=== PATIENT | male | born 1940 | race Caucasian/White ===

== ENCOUNTER → 2021-01-01 14:59 | Outpatient (BNVA) | payer MEDICARE, OTHER, SELFPAY | PROVIDERS: PCP Internal Medicine; Visit Provider Nurse Practitioner Family | DX: M47.27 Other spondylosis with radiculopathy, lumbosacral region (principal); M96.1 Postlaminectomy syndrome, not elsewhere classified | CPT/HCPCS: 99202 ==

== ENCOUNTER 2021-01-10 12:25 | Outpatient (REF) | payer MEDICARE, OTHER, SELFPAY ==
--- NOTE | ~2021-01-10 | MR_ITS ---
EXAMINATION: MR LUMBAR SPINE WITHOUT AND WITH CONTRAST CLINICAL INFORMATION: Postlaminectomy syndrome. Self-reported low back pain with bilateral leg pain COMPARISON: None TECHNIQUE: MRI of the lumbar spine was obtained using routine sequences with and without contrast. 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 Precise determination of the number of nonrib-bearing vertebral bodies is precluded given absence of axial images extending sufficiently cranially to assess rib-bearing status of the visualized vertebral bodies. The rudimentary intervertebral disc is presumed to represent the S1-S2 level. On this basis, bilateral transpedicular screws are present at L2, L3, L4 and L5. Focal angulation of the right L5 transpedicular screw is noted (series 4 image 11) which could represent a hardware fracture along the posterior aspect of the transpedicular screw. There are graft L2, L3, L4 and L5 laminectomies are noted. Artifact likely representing interbody device is noted at L2-L3, L3-L4, L4-L5. The conus medullaris terminates at the level of L1-L2. No vertebral body compression deformities are noted. Edematous marrow signal changes are present in the L5 and S1 vertebral bodies. No paraspinous soft tissue inflammatory changes are noted in association with these findings making allowances for inhomogeneous fat saturation on sagittal T1 postcontrast enhanced images. Fluid signal intensity is present in the L5-S1 intervertebral disc space. SPINAL LEVELS: T12-L1: No central foraminal stenoses. Normal intervertebral discs. L1-L2: Moderate posterior broad-based disc bulge with right parasagittal eccentricity partially effacing the right subarticular recess with probable right L2 traversing nerve root impingement. Additionally, mild right foraminal stenosis is noted. L2-L3: Making allowances for artifacts, no significant central or foraminal stenoses are noted. Minimal narrowing of the right neural foramen secondary to endplate osteophytosis is partially visualized. L3-L4: Making allowances for artifacts, no central or foraminal stenoses are identified. The neural foramina are suboptimally visualized secondary to artifact. L4-L5: Making allowances for artifact related to adjacent metallic hardware, no central or foraminal stenoses are identified. L5-S1: The neural foramina are suboptimally visualized secondary to artifact emanating from adjacent transpedicular screws. However, partial visualization is made of a moderate posterior broad-based disc bulge with apparent bilateral intraforaminal extension which appears results in marked bilateral foraminal stenoses though the neural foramina are suboptimally visualized. S1-S2: Rudimentary intervertebral disc. No central or foraminal stenoses noted. MR/MR lumbar spine wo/w con IMPRESSION: 1. 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 For the purposes of this report, a rudimentary intervertebral disc is presumed to exist at the S1-S2 level, and on this basis, bilateral transpedicular screws are present at L2, L3, L4 and L5 and interbody devices are present at L2-L3, L3-L4 and L4-L5. Grade 1 anterolisthesis is noted at L5-S1 and partial visualization is made of laminectomies at L2-L5. 2. Focal angulation of the course of the posterior aspect of the right L5 transpedicular screw. This finding could represent a fracture of the transpedicular screw or focal angulation without fracture. As clinically indicated, this finding may be assessed with radiographs of the lumbar spine. 3. L1-L2 right parasagittal and intraforaminal disc protrusion resulting in right subarticular recess narrowing and probable right L2 traversing nerve root impingement. 4. Inflammatory changes within the L5 and S1 vertebral bodies associated with a small quantity of fluid within the L5-S1 intervertebral disc space. These findings could represent aseptic, reactive marrow changes. In the correct clinical setting, discitis-osteomyelitis could have a similar appearance. Of note, no jaylon endplate erosions, or paraspinous inflammatory changes or fluid collections are identified to specifically suggest infection. 5. L5-S1 marked bilateral foraminal stenoses and probable bilateral L5 nerve root impingement secondary to intraforaminal disc-osteophyte complexes.
[2021-01-10 13:08] LABS: Blood Urea Nitrogen 24 mg/dL (9-16); Estimated Glomerular Filt Rate 55
== END 2021-01-10 12:26 | disposition home or self-care (01) ==
LOC: HO.MRI 12:25
PROVIDERS: Nurse Practitioner Family; PCP Internal Medicine; Visit Provider Anesthesiology
DX: Z01.818 Encounter for other preprocedural examination (principal); M96.1 Postlaminectomy syndrome, not elsewhere classified
CPT/HCPCS: 36415; 72158; 82565; 84520; A9585

== ENCOUNTER 2021-01-13 11:19 | Outpatient (REF) | payer MEDICARE, OTHER, SELFPAY ==
--- NOTE | ~2021-01-13 | XR_ITS ---
EXAMINATION: XR LUMBOSACRAL SPINE WITH OBLIQUES CLINICAL INFORMATION: Post laminectomy syndrome. COMPARISON: None TECHNIQUE: AP, both oblique, and lateral views of the lumbar spine. Lateral view of the lumbosacral junction. FINDINGS: There is maintained lumbar lordosis. There are disc prostheses at the L2-L3, L3-L4 and L4-L5 disc levels with pedicular screws at the L2 through L5 vertebrae with interconnecting rods for posterior stabilization. The rest the disc levels are normal. No acute fracture or lytic process is seen. There is a left common iliac stent in place. No gross bony abnormality is seen. XR/XR lumbar spine 4V min IMPRESSION: Fusion of the L2-L3, L3-L4 and L4-L5 disc levels with disc prostheses and posterior hardware. The hardware is intact. No visible fracture or dislocation is seen.
== END 2021-01-13 11:20 | disposition home or self-care (01) ==
LOC: HO.XRAY 11:19
PROVIDERS: PCP Internal Medicine; Visit Provider Anesthesiology
DX: M96.1 Postlaminectomy syndrome, not elsewhere classified (principal); M46.47 Discitis, unspecified, lumbosacral region; T84.296A Other mechanical complication of internal fixation device of vertebrae, initial encounter
CPT/HCPCS: 72110

== ENCOUNTER → 2021-01-15 15:31 | Outpatient (BNVA) | payer MEDICARE, OTHER, SELFPAY | PROVIDERS: PCP Internal Medicine; Visit Provider Nurse Practitioner Family | DX: M47.27 Other spondylosis with radiculopathy, lumbosacral region (principal); M96.1 Postlaminectomy syndrome, not elsewhere classified | CPT/HCPCS: 99212 ==

== ENCOUNTER 2024-10-17 09:10 | Outpatient (AMB) | payer MEDICARE, OTHER, SELFPAY ==
[2024-10-17 09:19] VITALS: BP 102/60; BMI 24.9
--- NOTE | 2024-10-17 09:19 | A.OFFVIS_ITS ---
Vital Signs 10/17/24 09:19 Height 5 ft 6 in Weight 154 lb BMI 24.9 BP 102/60 Blood Pressure Location Rt brachial Position Sitting Intake Visit Reasons: chronic cough Personalized Living Manager Required: No Information Technology Officer: Information Technology Officer offered & declined Accompanied by: Family/Other Allergies oxycodone Adverse Reaction (Verified 10/17/24 09:26) Hallucinations latex Allergy (Uncoded 10/17/24 09:26) rash Medication List - Last Reconciled 10/17/24 by Yadira Minor LPN acetaminophen (Tylenol) 650 mg PO Q6H PRN aspirin (Adult Aspirin Regimen) 81 mg PO DAILY carvedilol 3.125 mg PO BID cetirizine 10 mg PO DAILY clopidogrel 75 mg PO DAILY cyanocobalamin (vitamin B-12) 1,000 mcg PO DAILY ezetimibe 10 mg PO Q OTHER DAY ferrous sulfate 325 mg PO DAILY gabapentin 300 mg PO TID hydromorphone 4 mg PO Q6H PRN hydroxyzine HCl 10 mg PO BID midodrine 10 mg PO TID multivitamin 1 tab PO DAILY pantoprazole 20 mg PO DAILY rosuvastatin 40 mg PO DAILY sacubitril-valsartan 24-26 mg (Entresto) 1 tab PO BID torsemide 3 mg PO Q OTHER DAY PRN torsemide 20 mg PO DAILY HPI HPI chronic cough: Details: Arnel is a pleasant 83-year-old male, former smoker, quit 1979 with 15 parking history, with underlying HFrEF s/p ICD 2020, CKDIII, anemia, hyperlipidemia, hypertension, glaucoma, history of [place] CABG x4 in 2018, 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 He is accompanied by daughter and , ambulating in wheelchair due to weakness. He was referred by PCP for pulmonary evaluation for chronic cough. He noted cough started the beginning of July was treated with a Z-Ashu and Medrol Dosepak with minimal improvement. Chest x-ray negative. He continues to report fatigue, weakness, wheezing and productive cough with dark yellow tenacious sputum. He denies fevers or chills. At the start of symptoms also noted multiple family members with similar symptoms, however his have persisted. He was then sent for chest CT which revealed tree in bud nodularities with a 1cm ggo of RUL. He denies any history of asthma/COPD. He reports possible seasonal allergies, no recent allergy testing. 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 He denies any pertinent family history. He has a h/o of PAM however could not tolerate CPAP therapy in the past. He is under the care of cardiology at [facility], no reports available. [facility] Medical History (Updated 10/17/24 @ 10:09 by Georgie Markham NP) Other mechanical complication of internal fixation device of vertebrae, initial encounter Discitis of lumbosacral region Osteomyelitis Social History (Updated 10/17/24 @ 09:27 by Yadira Minor LPN) Patient Tobacco Use Status: Former Tobacco user Tobacco use type: Cigarette Cigarette Packs Per Day: 1 Years Smoked: 20 years/ Quit in 1977 Review of Systems Const Denies chills, Denies excessive sweating, Denies fever(s), Denies headache(s) and Denies night sweats Eyes Denies dry eyes, Denies irritation and Denies itchy eyes ENT Reports Normal hearing present, Denies headache(s), Denies nasal congestion, Denies nasal discharge, Denies post nasal drip and Denies sore throat Card Denies chest pain, Denies chest pain at rest, Denies chest pain with activity, Denies claudication, Denies dyspnea, Denies dyspnea on exertion, Denies orthopnea and Denies paroxysmal nocturnal dyspnea Resp Denies pain on inspiration, Denies pain with cough, Denies dyspnea, Denies dyspnea on exertion and Denies stridor Musc Denies myalgias Neuro Reports Normal hearing present and Denies headache(s) Endo Denies excessive sweating Kris/Lymph Denies lymphadenopathy Aller/Immun Denies itchy eyes and Denies seasonal rhinorrhea Physical Exam Vital Signs: Last Vital Signs BP 102/60 10/17/24 09:19 BMI result Body Mass Index 24.9 Const General: cooperative, comfortable, no acute distress, well developed and alert Orientation/consciousness: patient oriented x3 HEENT Head: Yes normal to inspection, Yes normocephalic and Yes atraumatic Ears: hearing grossly normal bilaterally and external ears normal Eyes General: appearance normal, both eyes and all related structures Eyelids: Yes eyelids normal Sclerae: sclerae normal EOM: EOMs intact bilaterally Neck Neck: Yes normal visual inspection and Yes no lymphadenopathy Lymphatic: no lymphadenopathy noted Chest Chest palpation & inspection: normal inspection of the chest Resp Effort & Inspection: normal respiratory effort, able to speak in complete sentences, no audible wheezes, Actively coughing Quality: productive, no stridor, not tachypneic, no tripod positioning and no use of accessory muscles Auscultation: rhonchi and wheezes Cardio Jugular venous distension: no JVD Rate: regular rate Rhythm: regular rhythm Skin Other: warm, dry General skin exam: no rashes or lesions noted Neuro General: patient oriented x3 Cranial nerves: Yes Normal hearing present Cognition (Neuro): normal cognition Extrem Other: 2+ pitting edema BLE Psych Appearance: grossly normal and well kempt Speech and movement: Normal speech and movement present and Clear speech present Affect: normal affect Attitude: cooperative Thought process: Normal thought process present Thought content: Normal thought content present Insight: Good insight present (Psych) Judgement: Good judgement present (Psych) Results Reviewed Results Reviewed: RESULT: CT Chest W/O Contrast CT Chest W/O Contrast INDICATION: Persistent cough TECHNIQUE: Helical CT scan of the chest without IV contrast, formatted in 3 planes. Weight-based protocol was performed using automatic exposure control. CTDIvol Body: 13.39 mGy, DLP Body: 513 mGy*cm. COMPARISON: CT angiogram chest 05/18/2023, CT chest 04/10/2023 FINDINGS: Substation Operator Helper view findings, lines and tubes: Triple lead pacemaker/AICD in place. Status post posterior fixation of the lumbar spine with intervertebral spacers. Status post median sternotomy. Trachea and airways: Patent without evidence of tracheal or endobronchial lesion. Lungs and pleura: Scattered tree-in-bud nodularity and multiple additional micronodules with a centrilobular distribution and a basilar predominance, worse on the left. 1 cm groundglass opacity in medial right upper lobe. Atelectasis versus scarring at the right and left lung bases. No effusion or pneumothorax. Mediastinum and ernesto: No mass or hematoma. Prominent but not enlarged mediastinal lymph nodes. No esophageal abnormality. Normal thyroid. Heart: Heart is normal in size. No pericardial effusion. Severe coronary artery calcification. Aorta: Severe atherosclerotic vascular calcification but no aneurysm. Pulmonary arteries: Normal caliber. Chest wall soft tissues: No acute abnormality. Diaphragm: Intact. Upper abdomen: No significant abnormality. Bones: Severe degenerative changes of the spine. Status post median sternotomy. IMPRESSION: Scattered tree-in-bud nodularities and micronodules with a centrilobular distribution and basilar prominence, which may represent bronchiolitis secondary to infectious versus inflammatory etiologies. 1 cm groundglass opacity medial right upper lobe. Degenerative and postoperative changes. I have personally reviewed the images and I agree with this report. WSN: [id number] Ordering Physician: Hemal Ball Assessment & Plan Assessment & Plan (1) Cough: Code(s): R05.9 - Cough, unspecified Category: Medical (2) Personal history of tobacco use: Code(s): Z87.891 - Personal history of nicotine dependence Category: Social Hx Plan Arnel presents for pulmonary evaluation for persistent harsh productive cough with suboptimal response to azithromycin and medrol dose pack. Will send Augmentin and prednisone, as well as encouraged use of albuterol to better expectorate. Reviewed side effects of both medications, aware to discontinue and call office if significant GI symptoms develop. If patient with minimal response will send for sputum. If patient reports improvements, will repeat chest CT to assess for resolution of inflammatory changes on chest CT. All questions were answered and patient is in agreement of plan. Will follow up in 4 weeks or sooner if needed. Medications: New amoxicillin-pot clavulanate 875-125 mg 1 tab PO Q12H 20 tabs 0RF prednisone see taper instructions 20 mg x 5 days, 10 mg x 5 days, 5 mg x 5 days 10 mg PO DIRECTED 18 tabs 0RF Coding Level of Care Code New Pt Level 4 (95223) Diagnoses Cough R05.9 Personal history of tobacco use Z87.896
== END 2024-10-17 10:11 | disposition home or self-care (01) ==
PROVIDERS: PCP Internal Medicine; Referring Provider Physician Assistant Medical; Visit Provider Nurse Practitioner Family
DX: R05.9 Cough, unspecified (principal); Z87.891 Personal history of nicotine dependence
CPT/HCPCS: 99204

== ENCOUNTER → 2024-10-17 09:10 | Outpatient (BNVA) | payer MEDICARE, OTHER, SELFPAY | PROVIDERS: PCP Internal Medicine; Referring Provider Physician Assistant Medical; Visit Provider Nurse Practitioner Family | DX: R05.9 Cough, unspecified (principal); Z87.891 Personal history of nicotine dependence | CPT/HCPCS: 99202 ==

== ENCOUNTER 2024-11-14 13:54 | Outpatient (AMB) | payer MEDICARE, OTHER, SELFPAY ==
[2024-11-14 14:00] VITALS: BP 114/68; BMI 24.5
--- NOTE | 2024-11-14 14:00 | A.OFFVIS_ITS ---
Vital Signs 11/14/24 14:00 Height 5 ft 6 in Weight 152 lb BMI 24.5 BP 114/68 Blood Pressure Location Rt brachial Position Sitting Intake Visit Reasons: Chronic Cough Bleach Liquor Maker Required: No Artificial Breeding Ranch Supervisor: Artificial Breeding Ranch Supervisor offered & declined Accompanied by: Family/Other Allergies oxycodone Adverse Reaction (Verified 11/14/24 14:05) Hallucinations latex Allergy (Uncoded 11/14/24 14:05) rash Medication List - Last Reconciled 11/14/24 by Yadira Minor LPN acetaminophen (Tylenol) 650 mg PO Q6H PRN aspirin (Adult Aspirin Regimen) 81 mg PO DAILY carvedilol 3.125 mg PO BID cetirizine 10 mg PO DAILY clopidogrel 75 mg PO DAILY cyanocobalamin (vitamin B-12) 1,000 mcg PO DAILY ezetimibe 10 mg PO Q OTHER DAY ferrous sulfate 325 mg PO DAILY gabapentin 300 mg PO TID hydromorphone 4 mg PO Q6H PRN hydroxyzine HCl 10 mg PO BID midodrine 10 mg PO TID multivitamin 1 tab PO DAILY pantoprazole 20 mg PO DAILY prednisone 10 mg PO DIRECTED rosuvastatin 40 mg PO DAILY sacubitril-valsartan 24-26 mg (Entresto) 1 tab PO BID torsemide 3 mg PO Q OTHER DAY PRN torsemide 20 mg PO DAILY HPI HPI Chronic Cough: Details: Arnel is a pleasant 83-year-old male, former smoker, quit 1979 with 15 parking history, with underlying HFrEF s/p ICD 2020, CKDIII, anemia, hyperlipidemia, hypertension, glaucoma, history of [place] CABG x4 in 2018, 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 He is accompanied by daughter and , ambulating without assistance. He was initially referred by PCP for pulmonary evaluation for chronic cough. He noted cough started the beginning of July was treated with a Z-Ashu and Medrol Dosepak with minimal improvement. Chest x-ray negative. He continued to report fatigue, weakness, wheezing and productive cough with dark yellow tenacious sputum. He denies fevers or chills. He was then sent for chest CT which revealed tree in bud nodularities with a 1cm ggo of RUL. At the last visit he was prescribed Augmentin and presents today for a close follow up. He reports about 50% improvement in symptoms since abx however continues with harsh cough, chest congestion, difficulty expectorating and intermittent wheezing. Of note, patient with BLE edema, significant cardiac component and has been adjusting diuretic this week with cardiology. [facility] Medical History (Updated 11/15/24 @ 11:26 by Georgie Markham NP) Other mechanical complication of internal fixation device of vertebrae, initial encounter Discitis of lumbosacral region Osteomyelitis Social History Patient Tobacco Use Status: Former Tobacco user Tobacco use type: Cigarette Cigarette Packs Per Day: 1 Years Smoked: 20 years/ Quit in 1977 Review of Systems Const Denies chills, Denies excessive sweating, Denies fever(s), Denies headache(s) and Denies night sweats Eyes Denies dry eyes, Denies irritation and Denies itchy eyes ENT Reports Normal hearing present, Denies headache(s), Denies nasal congestion, Denies nasal discharge, Denies post nasal drip and Denies sore throat Card Denies chest pain, Denies chest pain at rest, Denies chest pain with activity, Denies claudication, Reports leg edema, Denies dyspnea, Denies dyspnea on exertion, Denies orthopnea and Denies paroxysmal nocturnal dyspnea Resp Reports chest congestion, Reports cough, Denies hemoptysis, Denies pain on inspiration, Denies pain with cough, Denies dyspnea, Denies dyspnea on exertion, Denies stridor and Reports wheezing Musc Denies myalgias Neuro Reports Normal hearing present and Denies headache(s) Endo Denies excessive sweating Kris/Lymph Denies lymphadenopathy Aller/Immun Denies itchy eyes, Denies seasonal rhinorrhea and Reports wheezing Physical Exam Vital Signs: Last Vital Signs BP 114/68 11/14/24 14:00 BMI result Body Mass Index 24.5 Const General: cooperative, comfortable, no acute distress, well developed and alert Orientation/consciousness: patient oriented x3 HEENT Head: Yes normal to inspection, Yes normocephalic and Yes atraumatic Ears: hearing grossly normal bilaterally and external ears normal Eyes General: appearance normal, both eyes and all related structures Eyelids: Yes eyelids normal Sclerae: sclerae normal EOM: EOMs intact bilaterally Neck Neck: Yes normal visual inspection and Yes no lymphadenopathy Lymphatic: no lymphadenopathy noted Chest Chest palpation & inspection: normal inspection of the chest Resp Effort & Inspection: normal respiratory effort, able to speak in complete sentences, no audible wheezes, Actively coughing Quality: productive, no stridor, not tachypneic, no tripod positioning and no use of accessory muscles Auscultation: rhonchi and wheezes Cardio Jugular venous distension: no JVD Rate: regular rate Rhythm: regular rhythm Skin Other: warm, dry General skin exam: no rashes or lesions noted Neuro General: patient oriented x3 Cranial nerves: Yes Normal hearing present Cognition (Neuro): normal cognition Extrem Other: 2+ pitting edema BLE Psych Appearance: grossly normal and well kempt Speech and movement: Normal speech and movement present and Clear speech present Affect: normal affect Attitude: cooperative Thought process: Normal thought process present Thought content: Normal thought content present Insight: Good insight present (Psych) Judgement: Good judgement present (Psych) Assessment & Plan Assessment & Plan (1) Cough: Code(s): R05.9 - Cough, unspecified Category: Medical (2) Personal history of tobacco use: Code(s): Z87.891 - Personal history of nicotine dependence Category: Social Hx Plan Arnel reports moderate improvement in symptoms however continues with harsh productive cough, with rhonchi throughout. Will send for CXR today with possibility of chest CT depending on results. Plan to repeat chest CT in 3 months if improving to assess RUL 1 cm ggo. Will send Bactrim and prednisone, patient with QTc 482, avoiding levaquin. He was given sputum cup in office however difficulty expectorating so unlikely he will be able to produce sample. He did note improvement with nebulized albuterol from prior provider, will send in levalbuterol due to significant cardiac history. There may also be a cardiac component contributing to symptoms, patient with BLE edema and currently adjusting torsemide with cardiology. He is aware if symptoms do not improve to call office or seek emergent care if worsens. Also recommend taking a probiotic. All questions were answered and patient is in agreement of plan. Will follow up in 2-4 weeks or sooner if needed. Orders: Orders Sputum Cult + Gram stain 11/14/24 J40 - Bronchitis, not specified as acute or chronic XR chest 2V Today R05.9 - Cough, unspecified Medications: New sulfamethoxazole-trimethoprim 800-160 mg (Bactrim DS) 1 tab PO BID 20 tabs 0RF prednisone see taper instructions; 40 mg Daily x3 days, 30 mg daily x3 days, 20 mg daily x3 days, 10 mg daily x3 days 10 mg PO DIRECTED 30 tabs 0RF levalbuterol HCl 1.25 mg (3 mL) inhalation Q4-6H PRN 90 mL 3RF shortness of breath or wheezing J40 - Bronchitis, not specified as acute or chronic Coding Level of Care Code Est Pt Level 4 (67957) Complex EM visit Add On G2211 Diagnoses Cough R05.9 Personal history of tobacco use Z87.898
--- OUTSIDE RECORDS SUMMARY | 2024-11-14 14:55 | XMS_ITS | Patient Health Record ---
Author Organization [facility] Address [address] [place] [address] Care Team Providers Care Manager Cleaning Name Role Phone ALYSIA FELTON Primary Care Provider [phone] ALYSIA FELTON Unavailable [phone] Allergies Allergen (clinical drug ingredient) Drug/Non Drug Allergy documented on EMR Reaction Allergy Type Onset Date Status Latex Latex Unknown Allergy Active Reason For Referral No Information Medications Medication SIG (Take, Route, Frequency, Duration) Notes Start Date End Date Status Midodrine HCl 5 MG 2 tabs Orally 3x a day for 90 days Active Torsemide 10 MG TAKE 1 AND 1/2 TABLETS ONCEDAILY for 90 Active Pantoprazole Sodium 40 MG 1 tablet Orally Once a day for 90 days Active Rosuvastatin Calcium 40 MG TAKE 1 TABLET ONCE DAILY for 90 Active Cetirizine HCl 10 MG 1 tablet Orally Once a day Active Ezetimibe 10 MG 1 tablet Orally Once a day for 30 day(s) Active Hydrocortisone (Perianal) 2.5 % APPLY EXTERNALLY 2-4 TIME DAILY NEEDED 30 DAYS for 30 Active Clopidogrel Bisulfate 75 MG 1 tablet Orally Once a day for 90 days Active Entresto 49-51 MG 1 tablet Orally Twice a day for 30 day(s) Active Calcium Carb-Cholecalciferol 600-200 MG-UNIT 1 tablet with a meal Orally Once a day for 30 day(s) Active Nitroglycerin 0.4 MG as directed Sublingual 1-2 q 4 hourly PRN Active Latanoprost 0.005 % 1 drop into affected eye in the evening Ophthalmic Once a day Active hydrOXYzine HCl 10 MG as directed Orally BID Not-Taking Tacrolimus 0.1 % 1 application Externally Once a day Active HYDROmorphone HCl 2 MG 1 tablet as neede d Orally every 6 hrs takes prn for back pain- rare use Not-Taking Aspirin 81 MG 1 tablet Orally Once a day for 90 Active Multi Vitamin - 1 tablet Orally every other day for 30 days Active Menthol-Zinc Oxide 0.44-20.6 % as directed Externally Not-Taking Tylenol Extra Strength 500 MG 1 tablet as needed Orally every 6 hrs Active Carvedilol 3.125 MG TAKE 1 TABLET BY MOUTH TWICE A DAY WITH FOOD for 90 Not-Taking Gabapentin 300 MG TAKE 1 CAPSULE TWICE DAILY for 90 Active Triamcinolone Acet-Dimethicone Active Diclofenac Sodium 3 % apply 2 inches of gel Externally Twice a day for 30 day(s) Not-Taking CeraVe Daily Moisturizing - as directed Externally Active Protonix 40 MG 1 tablet Orally Once a day for 30 day(s) 04/19/2023 Not-Taking Cholestyramine 4 GM/DOSE 1 scoop Orally Once a day for 30 days Active Calcium & Magnesium Carbonates 975-232 MG one tablet twice a day Orally bid for 90 days Active Alendronate Sodium 70 MG TAKE 1 TABLET WEEKLY 30 MINUTES BEFORE THE FIRST FOOD, BEVERAGE OR MEDICINE OF THE DAY WITH PLAIN WATER for 84 Active Immunizations Vaccine Route Administration Date Status Comme nts Pneumococcal polysaccharide PPV23 Unknown 07/15/2006 Ad ministered Pneumococcal conjugate PCV 13 Unknown 04/10/2015 Admini stered DT Vaccine <7, IM Unknown 07/11/2018 Administered Social History Tobacco Use: Social History Observation Description Date Details (start date - stop date) Former Smoker NA - NA Tobacco Use/Smoking Question Answer Notes Are you a former smoker How long has it been since you last smoked? > 10 years Additional Findings: Tobacco Non-User Current no n-smoker Alcohol Screen (Audit-C) Question Answer Notes Did you have a drink contain ing alcohol in the past year? Yes How often did you have a dri nk containing alcohol in the past year? 4 or more times a week (4 points) How many drinks did you have on a typical day when you were drinking in the past year? 1 or 2 drinks (0 point) How often did you have 6 or more drinks on one occasion in the past year? Never (0 point) Points 4 Interpretation Positive Tobacco use other than smoking: Question Answer Notes Are you an other tobacco user? No Section Notes: Karen is his . 5 8 years in 2020 Karina is his daughter. Has daughter Nicol and Roberto and son Hilario. Karen is his . 5 8 years in 2020 Karina is his daughter. Has daughter Nicol and Roberto and son Hilario. Karen is his . 5 8 years in 2020 Karina is his daughter. Has daughter Nicol and Roberto and son Hilario. Karen is his . 5 8 years in 2020 Karina is his daughter. Has daughter Nicol and Roberto and son Hilario. Karen is his . 5 8 years in 2020 Karina is his daughter. Has daughter Nicol and Roberto and son Hilario. Lives in [place] since 1965 . Karina moved 03/26/2021 to help them and bought the house. Her Kalpana gan and her 2 sons Sukhdev 24(teacher) and Antoine 23 ([employer]) to [facility] [employer] for 60 yrs. 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 Has 4 childre #Karina 56 has 2 sons # Nicol 54yrLudlow has 2 sons Jimmie 29 and Madhu 18 yr #Gogo [address] usher in Has a son Moncho Alvarez 19yr and dtr Madluizaly Amanda 16 #Hilario 49 yrRetired from [employer] in Retired 2 yrs and moved to [place] Has and 2 dtrs Eliot 22 and Carlotta 21 yr Lives in [place] since 1965 . Karina moved 03/26/2021 to help them and bought the house. Her Kalpana gan and her 2 sons Sukhdev 24(teacher) and Antoine 23 ([facility] [employer] [employer]) to [employer] for 60 yrs. 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 Has 4 childre #Karina 56 has 2 sons # Nicol 54yrLudlow has 2 sons Jimmie 29 and Madhu 18 yr #[employer] [address] usher in Has a son Moncho Alvarez 19yr and dtr Maddingly Amanda 16 #Hilario 49 yrRetired from [employer] in [employer] Retired 2 yrs and moved to [place] Has and 2 dtrs Eliot 22 and Carlotta 21 yr Lives in [place] since 1964 . Karina moved 03/26/2021 to help them and bought the house. Her Kalpana gan and her 2 sons Sukhdev 24(teacher) and Antoine 23 ([employer]) to [employer] for 60 yrs. 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 Has 4 childre #Karina 56 has 2 sons # Nicol 54yrLudlow has 2 sons Jimmie 29 and Madhu 18 yr #[employer]ogo [address] usher in Has a son Moncho Alvarez 19yr and dtr Maddingly Amanda 16 #Hilario 49 yrRetired from [employer] in [employer] Retired 2 yrs and moved to [place] Has and 2 dtrs Eliot 22 and Carlotta 21 yr Lives in [place] since 1964 . Karina moved 03/26/2021 to help them and bought the house. Her Kalpana gan and her 2 sons Sukhdev 24(teacher) and Antoine 23 ([employer] [employer]) to [employer] for 60 yrs. 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 Has 4 childre #Karina 56 has 2 sons # Nicol 54yrLudlow has 2 sons Jimmie 29 and Madhu 18 yr #Gogo [address] usher in Has a son Moncho Alvarez 19yr and dtr Maddingly Amanda 16 #Hilario 49 yrRetired from [employer] in Retired 2 yrs and moved to [place] Has and 2 dtrs Eliot 22 and Carlotta 21 yr Lives in [place] since 1964 . Karina moved 03/26/2021 to help them and bought the house. Her Kalpana gan and her 2 sons Sukhdev 24(teacher) and Antoine 23 ([employer] [employer]) to [employer] for 60 yrs. 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 Has 4 childre #Karina 56 has 2 sons # Nicol 54yrLudlow has 2 sons Jimmie 29 and Madhu 18 yr #Gogo [address] usher in Has a son Moncho Alvarez 19yr and dtr Eric Patel 16 #Hilario 49 yrRetired from [employer] in [place] Retired 2 yrs and moved to [place] Has and 2 dtrs Eliot 22 and Carlotta 21 yr Lives in [place] since 1964 . Karina moved 03/26/2021 to help them and bought the house. Her Kalpana Escobar JASIEL elvia and her 2 sons Sukhdev 24(teacher) and Antoine 23 ([employer] [employer] [employer]) to [place] for 60 yrs. 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 Has 4 childre #Karina 56 has 2 sons # Nicol 54yrLudlow has 2 sons Jimmie 29 and Madhu 18 yr #Gogo [address] usher in Has a son Moncho Alvarez 19yr and dtr Eric Patel 16 #Hilario 49 yrRetired from [employer] in Retired 2 yrs and moved to [place] Has and 2 dtrs Eliot 22 and Carlotta 21 yr Karen is his . 5 8 years in 2020 Karina is his daughter. Has daughter Nicol and Roberto and son Hilario. Karen is his . 5 8 years in 2020 Karina is his daughter. Has daughter Nicol and Roberto and son Hilario. Karen is his . 5 8 years in 2020 Karina is his daughter. Has daughter Nicol and Roberto and son Hilario. Karen is his . 5 8 years in 2020 Karina is his daughter. Has daughter Nicol and Roberto and son Hilario. Karen is his . 5 8 years in 2020 Karina is his daughter. Has daughter Nicol and Roberto and son Hilario. Karen is his . 5 8 years in 2020 Karina is his daughter. Has daughter Nicol and Roberto and son Hilario. Lives in [place] since 1965 . Karina moved 03/26/2021 to help them and bought the house. Her Kalpana gan and her 2 sons Sukhdev 24(teacher) and Antoine 23 ([employer] [employer]) to [place] for 60 yrs. 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 Has 4 childre #Karina 56 has 2 sons # Nicol 54yrLudlow has 2 sons Jimmie 29 and Madhu 18 yr #Gogo [address] usher in Has a son Moncho Alvarez 19yr and dtr Eric Patel 16 #Hilario 49 yrRetired from [employer] in Retired 2 yrs and moved to [place] Has and 2 dtrs [place] 22 and Carlotta 21 yr Problems Problem Type SNOMED Code ICD Code Onset Dates Problem Status W/U Status Risk Notes Problem 05736048 Hypokalemia (E87.6) Active confirmed 09/06/23 Potassium 2.9 Taking potassium powsder every othe Told to take it daily and check after 7 days Problem Hypertensive heart AND chronic kidney disease with congestive heart failure (65281738067282) Hypertensive heart and chronic kidney disease with heart failure and stage 1 through stage 4 chronic kidney disease, or unspecified chronic kidney disease (I13.0) Active confirmed Problem Chronic systolic heart failure (390685394) Chronic systolic (congestive) heart failure (I50.22) Active confirmed Problem 41365433 Intestinal malabsorption, unspecified (K90.9) Active confirmed Problem Septic shock (31834665) Severe sepsis with septic shock (R65.21) Active confirmed 05/31/23 [place] [address] full of fluids Discharged with 20 lbs in fluid weight gain Lost 7 lbs in 3 days Problem Osteoporosis (81858588) Osteoporosis (M81.0) Active confirmed femoral neck -2.June Problem 081160756 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 Anemic but stool heme negative. Discussed food triggers. OMeprazole 40mg bid past GI note received and reviewed Problem 932911070 Primary osteoarthritis of both knees (M17.0) Active confirmed hx of TKR bilaterally Uses walker or cane. use acetaminophen and diclofenac gel. Problem 13894915 Eczema, unspecified type (L30.9) Active confirmed has been eval b y derm at [facility] but practice closed Given name and number for [facility] and told to call 01/05/22 the first day the practice opens. take zyrtec and prn hydrolozine. uses hydrocort 2.5% cream until derm reevals Problem 144530384 Coronary artery disease involving [place] coronary artery of [place] heart without angina pectoris (I25.10) Active confirmed Dr Saleem. Has had CABG with multivessel revascularizatio n. Aug 2020 EF 30-35%. Has ICD> reports no cardiac sx, reports compliance with meds. cardiology notes requested. no med changes today. Problem 436470554 Hx of myocardial infarction (I25.2) Active confirmed followed by [facility]. Problem 940307965 PVD (peripheral vascular disease) (I73.9) Active confirmed hx of cellulitis in RLE 2017 and ulcer on right second toe 2019 Has been followed by vascular. Hx of stent in left common ileac artery 12/2017. imaging 11/26/20 by [facility] right common femoral art, right proximal SFA and left proximal common ileac artery all 50-90% occlusion. left common ileac < 50% left popliteal 50-90% occlusion left common femoral 20-50% Angiogram 01/2021 Cont high dose statins, lower fat diet. activity not limited by claudication Problem 08526070 PAM (obstructive sleep apnea) (G47.33) Active confirmed has avoided sleep study but now scheduled through the cardiology office. discussed lack of O2 to brain as well as connection of Afib and PAM> He plans to keep eval scheduled for Jun. Problem 419703529 Fatty liver (K76.0) Active confirmed will recheck labs Problem 083823443 Hospital discharge follow-up (Z09) Active confirmed 04/29/23 Reviewed records Meds reviewed Only omeprazole changed to Pantaprozole Doing well I told him I cannot give medical clearance for his surgery and will refr him to Dr Saleem tenzin 05/31/23 Readmitted to [facility] for emergent open cholecystectomy as had septic shock Problem 368620532 Memory deficit (R41.3) Active confirmed Problem 12770083 Iron deficiency anemia, unspecified iron deficiency anemia type (D50.9) Active confirmed denies fatigue, easy bruising, blood in stool will check labs Problem 28790096 Stenosis of carotid artery, unspecified laterality (I65.29) Active confirmed 2017 right 50% and left 50-79% Hx of right carotid endarterectomy by Dr Altamirano 2011 Problem Solitary pulmonary nodule (311730930) Lung nodule, solitary (R91.1) Active confirmed Problem 24885165 Spinal stenosis, lumbar region with neurogenic claudication (M48.062) Active confirmed surgery x2 , last summer 2020. Problem 640396968 Chronic systolic heart failure (I50.22) Active confirmed Has not had SOB or ORTIZ, edema or decrease in energy. cont meds. [facility] cardiovascual Last echo dated 08.15.21 EF 30-35% LBBB, mild enlargement right ventricle. no evidence pulmonary hypertension. Problem History of excision of intestinal structure (805190942) S/P cholecystectomy (Z90.49) Active confirmed 05/18/23 Dr Starr lee at [facility] Problem 764574587 Longstanding persistent atrial fibrillation (I48.11) Active confirmed began after CABGx4 in 2018 On clopidogril Has ICD. no episodes racing or irreg heart rate. cardiology notes requested Problem 74498132 Hypercholesterem ia (E78.00) Active confirmed on crestor and zetia. Was on Repatha in past but developed back pain so med d/c. 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 followed by vascular surgery Problem 663577225 Cholecystostomy care (Z43.4) Active confirmed Plan Of Treatment Pending Test Test Name Order Date Urinalysis, Complete 08/25/2023 Lipid Panel 08/25/2023 Lipid Panel 06/22/2023 Chem-Comprehensive 08/25/2023 Chem-Comprehensive 06/22/2023 BASIC METABOLIC PANEL (BMP) 07/17/2022 B-TYPE NATRIURETIC PEPTIDE (BNP) 023 Future Test Test Name Order Date CBC 11/24/2022 COMPREHENSIVE METABOLIC PANEL 11/24/2022 LIPID PROFILE 11/24/2022 CBC 06/21/2023 BASIC METABOLIC PANEL (BMP) 06/28/2023 Insurance Providers Payer Name Payer Address Payer Phone Subscriber Number Group Number Insured Name Patient Relationship to Insured Coverage Start Date Coverage End Date Medicare of [place] - J14 [address] RACHEL RODRIGUEZ [phone] [id number] Arnel Hernandez Self - patient is the insured [address] [phone] [id number] Arnel Hernandez Self - patient is the insured Medical (General) History Medical History History ICD Code [place]'s in 40's Spinal stenosis of lumbar region without neurogenic claudication M48.061 Covid February 16, 2022 Had antibody infus ion Surgical History Surgery Date(Month/Year) CABG12/2017 total knee replacements bilaterally left 05/2010 right 01/2011 carotid endarterectomy 2011 left common femoral edartere ctomy and ileac stenting. Dr Saleem at [facility] December 2017 oblique fracture of distal shaft right f emur 06/2018 removal squamous cell cancer 08/2013 lumbar decompression at [facility] 04/27/2019 Lumbar Fusion (2 Day Surgery) 03/28/2021- 03/29/2021 Right Stent @ [facility] 02/2021 Defibrillator/Pacer Aug 202008/[address] Barrios at [facility] 05/18/23
--- OUTSIDE RECORDS SUMMARY | 2024-11-14 14:55 | XMS_ITS ---
Author Organization [facility] Address [address] [place] [address] Care Team Providers Care Communications Engineering Technician Name Role Phone ALYSIA FELTON Primary Care Provider ALYSIA FELTON Unavailable [phone] REASON FOR VISIT refill Medications Medication SIG (Take, Route, Fr equency, Duration) Notes Start Date End Date Status Torsemide 10 MG Take 3 tabs Orally O nce a day for 90 days Active Encounters Encounter Location Date Provider Diagnosis [facility] [address] [place] [address] 09/21/2023 ALYSIA FELTON Plan Of Treatment Medication Medication Name Sig Start Date Stop Date Notes Torsemide 10 MG Take 3 tabs Orally Once a day for 90 days Progress Notes * Arnel MARTINEZDOB:1940 (82 yo M)Acc No.[id number]:09/21/2023 Patient:?Lilian Arnel :1940???Age:82 Y???Sex:Male Address:[address] [place], [address] * Refills? Refill Torsemide Tablet, 10 MG, Orally, 270, Take 3 tabs, Once a day, 90 days, Refills=2 * true * Date:? Generated for Printi ng/Faxing/eTransmitting on:?11/14/2024 02:54 PM EST
--- OUTSIDE RECORDS SUMMARY | 2024-11-14 14:55 | XMS_ITS | Clinical Summary ---
Author Organization [facility] Address [address] [place] [address] Care Team Providers Care Airbrush Artist Photography Name Role Phone Maggie Franz MD Primary Care Provider [phone] Medications acetaminophen (TYLENOL) 325 MG tablet Take by mouth every 6 (six) hours if needed for mild pain Active aspirin (ST ANTHONY) 81 MG EC tablet Take 81 mg by mouth 1 (one) time each day Active clopidogrel (PLAVIX) 75 MG tablet Take 75 mg by mouth 1 (one) time each day Active Enoxaparin Sodium 30 MG/0.3ML solution prefilled syringe Inject as directed Active folic acid (FOLVITE) 1 MG tablet Take 1 mg by mouth 1 (one) time each day Active Heparin Sodium, Porcine, (HEPARIN COMBINATION IJ) Inject as directed Active Magnesium 400 MG tablet Take by mouth Active midodrine (PROAMATINE) 5 MG tablet Take 5 mg by mouth in the morning and 5 mg in the evening and 5 mg before bedtime. Active Multiple Vitamin (multivitamin) tablet Take 1 tablet by mouth 1 (one) time each day Active pantoprazole (PROTONIX) 40 MG EC tablet Take 40 mg by mouth 1 (one) time each day before breakfast Do not crush, chew, or split. Active pyridoxine (B-6) 50 MG tablet Take 50 mg by mouth 1 (one) time each day Active rosuvastatin (CRESTOR) 20 MG tablet Take 20 mg by mouth 1 (one) time each day Active thiamine (VITAMIN B-1) 100 MG tablet Take 100 mg by mouth 1 (one) time each day Active torsemide (DEMADEX) 20 MG tablet Take 20 mg by mouth 1 (one) time each day Active bisacodyl (FLEET) 10 MG/30ML enema Insert 10 mg into the rectum 1 (one) time Active Dextrose 25 % solution Infuse into a venous catheter Active Docusate Sodium 100 MG/10ML liquid Take 100 mg by mouth Active sodium chloride 0.9 % solution 500 mL with heparin (porcine) 1000 UNIT/ML solution 1 Units/mL Inject 5 mL/hr into an arterial catheter continuously Active Melatonin 3 MG capsule Take by mouth Active ondansetron (ZOFRAN) 4 MG tablet Take 4 mg by mouth every 8 (eight) hours if needed for nausea or vomiting Active oxyCODONE (OXY-IR) 5 MG immediate release capsule Take 5 mg by mouth every 4 (four) hours if needed for moderate pain Active alendronate (FOSAMAX) 70 MG tablet Take 70 mg by mouth every 7 (seven) days Take in the morning with a full glass of water, on an empty stomach, and do not take anything else by mouth or lie down for the next 30 min. Active carvedilol (COREG) 3.125 MG tablet Take 3.125 mg by mouth in the morning and 3.125 mg in the evening. Take with meals. Active ezetimibe (ZETIA) 10 MG tablet Take 10 mg by mouth 1 (one) time each day Active gabapentin (NEURONTIN) 300 MG capsule Take 300 mg by mouth in the morning and 300 mg in the evening and 300 mg before bedtime. Active omeprazole (PriLOSEC) [address] capsule Take 40 mg by mouth 1 (one) time each day Do not crush or chew. Active Active Problems Problem Noted Date Diagnosed Date Alcohol abuse 07/30/2023 Coronary arteriosclerosis 07/30/2023 Cholelithiasis with cholecystitis 07/30/2023 Degenerative joint disease involving knee 2022 Eczema 07/30/2023 Fatty liver 07/30/2023 Hyperlipidemia 07/30/2023 Essential (primary) hypertension 07/30/2023 Left bundle-branch block 07/30/2023 Obesity 07/30/2023 Old myocardial infarction 07/30/2023 Spinal stenosis 07/30/2023 Family History Medical History Relation Comments Heart disease Father Heart disease Mother Heart disease Sibling Sister-CABG Relation Status Comments Father Mother Sibling Social History Tobacco Use Types Packs/Day Years Used Date Smoking Tobacco: Former Cigarettes Q uit: 10/04/1979 Alcohol Use Standard Drinks/Week Comments Yes 0 (1 standard drink = 0.6 oz pure alcohol) Alcoholic Drinks/day: 1-2 drinks per day Sex and Gender Information Value Date Recorded Sex Assigned at Not on file Legal Sex Male 4:51 PM EST Gender Identity Not on file Sexual Orientation Not on file Plan of Treatment Health Maintenance Due Date Last Done Comments Hepatitis B Vaccine (1 of 3 - Risk 3-dose series) 11/05 Pneumococcal Vaccine: 65+ Ye ars (2 of 2 - PPSV23 or PCV20) 01/31/2018 12/06/2017 Influenza Vaccine (#1) 2024 Insurance MEDICARE [facility] MEDICARE [facility] Care Teams Airbrush Artist Photography Relationship Specialty Start Date End Date Maggie Franz MD PCP - General 10/14/20
--- OUTSIDE RECORDS SUMMARY | 2024-11-14 14:55 | XMS_ITS ---
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 Name Role Phone ALYSIA FELTON Primary Care Provider ALYSIA FELTON Unavailable [phone] PAULINE CASTRO Unavailable [phone] Results Component Value Reference Range Notes CBC WITH AUTO DIFF Reviewed date:09/14/2023 06:06:35 PM Interpretation: Performing Lab: Notes/Report: Original Ordering Provider: PAULIEN CASTRO MD [employer], a member of [address] [address] Handtools Repairer - Jada Lu MD WBC 11.3 4.8-10.8 x10-3/uL RBC 3.6 4.5-5.5 x10-6/uL HEMOGLOBIN 9.5 13.5-17.5 g/dL HEMATOCRIT 32.9 42-54 % MCV 90.4 79-98 fL MCH 26.1 27-32 pg MCHC 28.9 32-37 g/dL RDW 18.2 11-15 % PLT COUNT 293 130-400 x10-3/uL MEAN PLATELET VOLUME 11.3 7-11 fL NRBC % AUTO 0.0 <1 % NEUT % 54.7 LYMPH % 28.4 MONO % 10.5 EOS % 4.4 BASO % 1.7 IMMATURE GRANULOCYTES % 0.3 NRBC # AUTO 0.00 <0.1 x10-3/uL ABSOLUTE NEUT 6.17 1.5-7.0 x10-3/uL LYMPH # 3.20 1-5.0 x10-3/uL MONO # 1.18 0.2-1.0 x10-3/uL EOS # 0.50 0-0.5 x10-3/uL BASO # 0.19 0-0.2 x10-3/uL IMMATURE GRANULOCYTES # 0.03 0-0.03 x10-3/uL COMPREHENSIVE METABOLIC PANE L Reviewed date:09/14/2023 06:06:35 PM Interpretation: Performing Lab: Notes/Report: Original Ordering Provider: PAULINE CASTRO MD GLUCOSE 86 70-100 mg/dL Reference range applicable to fasting specimens only BUN 23 5-25 mg/dL CREAT 1.34 0.7-1.3 mg/dL GLOMERULAR FILTRATION RATE 53 >60 This eGFR result was calculated using the CKD-EPI 2020 Creatinine Equation SODIUM 144 135-145 mEq/L POTASSIUM 5.0 3.5-5.5 mmol/L CHLORIDE 105 96-110 mmol/L CO2 31 21-32 mmol/L ANION GAP 8 3-11 CALCIUM 9.7 8.5-10.5 mg/dL TOTAL PROTEIN 6.6 6.0-8.0 G/dL ALBUMIN 3.1 3.2-5.0 G/dL BILI,TOTAL 0.4 0.0-1.4 mg/dL SGOT 16 10-42 U/L SGPT 10 10-60 U/L ALK PHOS 102 42-121 U/L LIPID PROFILE Reviewed date:09/14/2023 06:06:35 PM Interpretation: Performing Lab: Notes/Report: [employer] [address] Handtools Repairer - Jada Lu MD CHOLESTEROL 145 0-200 mg/dL TRIGLYCERIDES 207 0-150 mg/dL HDL CHOLESTEROL 49 >40 mg/dL LDL CALCULATED 55 0-100 mg/dL TC-HDLC RATIO 3.0 0-4.4 mg/dL URINALYSIS Reviewed date:09/14/2023 06:06:35 PM Interpretation: Performing Lab: Notes/Report: Original Ordering Provider: PAULINE CASTRO MD [employer] [address] Handtools Repairer - Jada Lu MD GLUCOSE, (UA) NEGATIVE NEGATIVE mg/dL BILIRUBIN, URINE NEGATIVE NEGATIVE KETONE, URINE NEGATIVE NEGATIVE mg/dL SPECIFIC GRAVITY, URINE 1.008 1.003-1.030 BLOOD, URINE NEGATIVE NEGATIVE PH, URINE 7.5 5.0-8.0 PROTEIN, URINE NEGATIVE <= TRACE mg/dl UROBILINOGEN, URINE 0.2 0.2-1.0 E.U./dL NITRITE, URINE NEGATIVE NEGATIVE LEUKOCYTE ESTERASE, URINE NEGATIVE NEGATIVE REASON FOR VISIT Request For Lab Orders Encounters Encounter Location Date Provider Diagnosis [address] [place] [address] 09/13/2023 PAULINE CASTRO Iron deficiency anem ia, unspecified iron deficiency anemia type D50.9 ; Hypercholesteremia E78.00 ; Hx of myocardial infarction I25.2 ; Orthostatic hypotension I95.1 and Fatty liver K76.0 Assessments Encounter Date Diagnosis (ICD Code) Assessment Notes Treatment Notes Treatment Clinical Notes Section Notes 09/13/2023 Iron deficiency anemia, unspecified iron deficiency anemia type (ICD-10 - D50.9) 09/13/2023 Hypercholesteremia (ICD-10 - E78.00) 09/13/2023 Hx of myocardial infarction (ICD-10 - I25.2) 09/13/2023 Orthostatic hypotension (ICD-10 - I95.1) 09/13/2023 Fatty liver (ICD-10 - K76.0) Plan Of Treatment No Information Progress Notes * Arnel MARTINEZDOB:1940 (82 yo M)Acc No.[id number]:09/13/2023 Patient:?Arnel Martinez :1940???Age:82 Y???Sex:Male Address:[address] [place] [address], [id number] Subjective: * Chief Complaints: * ???Request For Lab Orders * Medical History:? * Surgical History:? * Hospitalization/Major Diagno stic Procedure:? * Medications:? Objective: Assessment: * Assessment: 1.?Iron deficiency anemia, u nspecified iron deficiency anemia type - D50.9?2.?Hypercholesteremia - E78.00?3.?Hx of myocardial infarction - I25.2?4.?Orthostatic hypotension - I95.1?5.?Fatty liver - K76.0? Plan: * Treatment: 2.?Hypercholesteremia?LAB: CBC WITH AUTO DIFF ?LAB: COMPREHENSIVE METABOLIC PANEL ?LAB: LIPID PROFILE ?LAB: URINALYSIS 3.?Hx of myocardial infarcti on?LAB: CBC WITH AUTO DIFF ?LAB: COMPREHENSIVE METABOLIC PANEL ?LAB: LIPID PROFILE ?LAB: URINALYSIS 4.?Orthostatic hypotension?LAB: CBC WITH AUTO DIFF ?LAB: COMPREHENSIVE METABOLIC PANEL ?LAB: LIPID PROFILE ?LAB: URINALYSIS 5.?Fatty liver?LAB: CBC WITH AUTO DIFF ?LAB: COMPREHENSIVE METABOLIC PANEL ?LAB: LIPID PROFILE ?LAB: URINALYSIS * Procedure Codes:? * true * Date:? Generated for Magaly marmolejo/Bebeto/eTransmitting on:?11/14/2024 02:54 PM EST
--- OUTSIDE RECORDS SUMMARY | 2024-11-14 14:55 | XMS_ITS ---
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 Had them before Diagnosis 1 Muscular decondition ing (R29.898) Referral Organization [facility] Referring Provider First Name LEONID Referring Provider Last Name GLORIA Referring Provider Speciality Internal M edicine Referred Provider Specialty Physical The rapist General Notes [place] 12:39:17 PM > [facility] Referral Priority Urgent REASON FOR VISIT Urgent Visit: Requesting Home PT, Last Labs: 09/13/23 Medications Medication SIG (Take, Route, Frequency, Duration) Notes Start Date End Date Status hydrOXYzine HCl 10 MG as directed Orally BID Not-Taking HYDROmorphone HCl 2 MG 1 tablet as neede d Orally every 6 hrs takes prn for back pain- rare use Not-Taking Menthol-Zinc Oxide 0.44-20.6 % as directed Externally Not-Taking Diclofenac Sodium 3 % apply 2 inches of gel Externally Twice a day for 30 day(s) Not-Taking Protonix 40 MG 1 tablet Orally Once a day for 30 day(s) 04/19/2023 Not-Taking Carvedilol 3.125 MG TAKE 1 TABLET BY MOUTH TWICE A DAY WITH FOOD for 90 Not-Taking Gabapentin 300 MG TAKE 1 CAPSULE TWICE DAILY for 90 Active Cholestyramine 4 GM/DOSE 1 scoop Orally Once a day for 30 days Active Calcium & Magnesium Carbonates 975-232 MG one tablet twice a day Orally bid for 90 days Active Midodrine HCl 5 MG 2 tabs Orally 3x a day for 90 days Active Torsemide 10 MG 3 PO QD for 90 days Active Alendronate Sodium 70 MG 1 tablet 30 minutes before the first food, beverage or medicine of the day with plain water Orally once a week for 90 days Active Pantoprazole Sodium 40 MG 1 tablet Orally Once a day for 90 days Active Rosuvastatin Calcium 40 MG TAKE 1 TABLET ONCE DAILY for 90 Active Hydrocortisone (Perianal) 2.5 % APPLY EXTERNALLY 2-4 TIME DAILY NEEDED 30 DAYS for 30 Active Cetirizine HCl 10 MG 1 tablet Orally Once a day Active Ezetimibe 10 MG 1 tablet Orally Once a day for 30 day(s) Active Clopidogrel Bisulfate 75 MG 1 tablet Orally Once a day for 90 days Active Entresto 49-51 MG 1 tablet Orally Twice a day for 30 day(s) Active Calcium Carb-Cholecalciferol 600-200 MG-UNIT 1 tablet with a meal Orally Once a day for 30 day(s) Active Latanoprost 0.005 % 1 drop into affected eye in the evening Ophthalmic Once a day Active Tacrolimus 0.1 % 1 application Externally Once a day Active Aspirin 81 MG 1 tablet Orally Once a day for 90 Active Multi Vitamin - 1 tablet Orally every other day for 30 days Active Nitroglycerin 0.4 MG as directed Sublingual 1-2 q 4 hourly PRN Active Tylenol Extra Strength 500 MG 1 tablet as needed Orally every 6 hrs Active Triamcinolone Acet-Dimethicone Active CeraVe Daily Moisturizing - as directed Externally Active Social History Tobacco Use: Social History Observation [...] an other tobacco user? No Section Notes: Lives in [place] since 1964 . Karina moved 03/26/2021 to help them and bought the house. Her Kalpana gan and her 2 sons Sukhdev 24(teacher) and Antoine 23 ([employer]) to Karen Livingston for 60 yrs. 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 Arnel was in [employer] and retired in 2005. Has 4 childre #Karina 56 has 2 sons # Nicol 54yrLudlow has 2 sons Jimmie 29 and Madhu 18 yr #Gogo [address] clerk in Has a son Moncho Alvarez 19yr and dtr Eric Patel 16 #Hilario 49 yrRetired from [employer] in Retired 2 yrs and moved to [place] Has and 2 dtrs Eliot 22 and Carlotta 21 yr Problems Problem Type SNOMED Code ICD Code Onset Dates Problem Status W/U Status Risk Notes Problem [id number] Muscular deconditioning (R29.898) Active confirmed Problem 182869563 Memory deficit (R41.3) Active confirmed Vital Signs Temperature 99 degrees Fahrenheit 09/13/2023 Blood pressure systolic 96 mm Hg 09/13/20 23 Blood pressure diastolic 43 mm Hg 023 Heart Rate 98 /min 09/13/2023 Height 65 in 09/13/2023 Weight 163 lbs 09/13/2023 BMI 27.12 kg/m2 09/13/2023 Encounters Encounter Location Date Provider Diagnosis [address] [place] [address] 09/13/2023 LEONID DICKSON Muscular deconditioning R29.898 ; Spinal stenosis, 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 09/13/2023 Chronic systolic (congestive) heart failure (ICD-10 - I50.22) 09/13/2023 Memory deficit (ICD-10 - R41.3) Plan Of Treatment Referrals Referral Date Details 09/13/2023 09/13/2023, Refer to [facility] for eval for PT. Had them before Progress Notes * Arnel MARTINEZDOB:1940 (82 yo M)Acc No.[id number]:09/13/2023 Progress Notes Patient:?Arnel Martinez Provider:?Leonid Dickson MD :1940???Age:82 Y???Sex:Male Rahat e:09/13/2023 Address:[address] [place], [place] [id number] Pcp:ALYSIA Lopez Subjective: * Chief Complaints: * ???Urgent Visit: Requesting Home PTLast Labs: 09/13/23 * HPI: ???New/Follow-up Patient Consult:? 09/13/[address] Saleem is doing a procedure to insert some device to monitor his fluid level. Has a PCM. BP 123/60 Here today requesting PT at home Doesnt have the strength and has having to rashad a cane nore Needs assist on getting up. Asking for home PT , Had someone come [facility] PT who had done good treatment for him and he feels he will benefit. ?09/06/23 Looking well Using a cane Came with Karen Had Thanksgiving at [facility] Her Tano Sellers (my patient works at the [employer]) did the cooking. Meds reviewed and reconciled Had echo this morning and seeing dr Saleem next week. Fell in the tub and couldnt get up. called the ambulance and they lifted him up. No new complaints. Back still bothers him. ?08/25/23 Came with Karen Had severe epistaxis last week . Karen took him to [facility] They did not pack his nose Told not to pick his nose No further epistaxis . Has developed tinnitus of earsm right worse for past 1 week. Doesnt bother him. Going to youngest daughter Roberto moser in [place] for Thanksgiving 2 other daughters, 6 GC and son in laws will be there Their son and his 2 children will not be coming in [place](retd [employer] Work[employer] Helper has cancer) ?He was hospitalized at [facility] with cholecystomy and readmitted and had cholecystectomy on 05/20/23 Had sepsis Feeling fine now Meds reviewed and reconcile ?[facility]23 for a week, had left knee pain ?07/28/23 came and saw me today Arnel unable to come because of his unexplained diaarhea whic cause him to have accident Had galbladder remove and this is happening after that ?06/22/23 Came in with Karen Livingston 80 yr. Using a cane to walk for his gait Had 2 back operations at [facility] in 2019 [address] Saleem last week No changes in meds Scheduled echo and US of legs Saw surgical PA and she removed 15 martinez fro his abdomen and discharged him. ?No new issues Weight is better Lost 16 lbs of the fluid weight. Watchs TV, plays on computer Has PT comes in twice week and helps him walk.Has 2 cats. Meds reviewed and reconciled ?05/31/23 Came in a accompanied by daughter Karina and his . Had emergency Cholecystectomy on 05/18/23 at [facility] Operated by Dr Copeland () from [facility] . Had abscess of the gall bladder and septic again. Gained 20 lbs water weight when he came home on 05/28/23 . Lost 7 lbs in 3 days when Torsemide was restarted On carvedilol was stopped . On Midrodine for low BP Happens every magda after surgery . Going for detal extraction of two teeth by Dr Berman in [place] on 06/03/[address] luevano pn 06/08/[address] FU with surgeon Dr Paramjit VAUGHN on 06/09/23 ?04/29/23 82 yr old male came with his of 60 years ?He was having left sided abdominal pain and was taken to [facility]. Was hypotensive and transferred to [facility] on 04/10/23 and admitted to ICU with septic shock He was stabilized and surgeon suspected cholycystitis and cholecystomy was done and a drain was put in He was on Ceftrixone and discharged on oral augmentin for a day. on 04/16/23 Came home now with OT/PT andVNA visits. He was supposed to have lower teeth extracted on lower right jaw on 04/19/23 It was postponed. ?Scheduled for CT abdomen on 05/14/23 . Daughter Bhavna is his HCP . 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 [phone] ?Doing well at [facility] Had diarrhea but it is better today. ?His licensing and registration director is Dr Saleem. Sees Dr Mitra payton in [facility] operated on back twice last 2 yrs ago. Previous PCP was DR Razo at [facility] . Left as she wouldny give him pain meds 04/29/23 82 yr old male came with his of 60 years ?He was having left sided abdominal pain and was taken to [facility]. Was hypotensive and transferred to [facility] on 04/10/23 and admitted to ICU with septic shock He was stabilized and surgeon suspected cholycystitis and cholecystomy was done and a drain was put in He was on Ceftrixone and discharged on oral augmentin for a day. on 04/16/23 Came home now with OT/PT andVNA visits. He was supposed to have lower teeth extracted on lower right jaw on 04/19/23 It was postponed. ?Scheduled for CT abdomen on 05/14/23 . Daughter Bhavna is his HCP . 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 [phone] ?Doing well at [facility] Had diarrhea but it is better today. ?His licensing and registration director is Dr Saleem. Sees Dr Mitra payton in [place] operated on back twice last 2 yrs ago. Previous PCP was DR Razo at [facility] . Left as she wouldny give him pain meds. * Medical History:? * Surgical History:?CABG03/201 8 12/2017total knee replacements bilaterally left 05/2010 right 01/2011 carotid endarterectomy 2012left common femoral edarterectomy and ileac stenting. Dr Saleem at [facility] December 2017oblique fracture of distal shaft right femur 06/2018removal squamous cell cancer 08/2013lumbar decompression at [facility] 04/27/2019Lumbar Fusion (2 Day Surgery) 03/28/2021-1Right Stent @ [facility] efibrillator/Pacer Aug 202008/2020Cholecystectomy Dr Barrios at [facility] 05/18/23 * Hospitalization/Major Diagno stic Procedure:? * Family History:?Father: dece ased 56 yrs.?Mother: 52 yrs.?Siblings: sister CABG.? * Social History:?Tobacco Use:?Tobacco Use/Smoking?Are you a?former smoker ?How long has it been since you last smoked??> 10 years ?Additional Findings: Tobacco Non-User?Current non-smoker ?Tobacco use other than smoking?Are you an other tobacco user??No ???Drugs/Alcohol:?Alcohol Screen (Audit-C)?Did you have a drink containing alcohol in the past year??Yes ?How often did you have a drink containing alcohol in the past year??4 or more times a week (4 points) ?How many drinks did you have on a typical day when you were drinking in the past year??1 or 2 drinks (0 point) ?How often did you have 6 or more drinks on one occasion in the past year??Never (0 point) ?Points?4 ?Interpretation?Positive ???Miscellaneous:?Housing: living with relatives- daughter bought his .. ?Living with: and daughter, her , 2 sons an their girlfriends and the cats. ?Marital status: . 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 ?Pets: cats. ???Lives in [place] since 1964 . Karina moved 03/26/2021 to help them and bought the house. Her Kalpana gan and her 2 sons Sukhdev 24(teacher) and Antoine 23 ([employer]) to Karen Livingston for 60 yrs. 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 Has 4 childre #Karina 56 has 2 sons # Nicol 54yrLudlow has 2 sons Jimmie 29 and Madhu 18 yr #Gogo [address] clerk in Has a son Moncho Alvarez 19yr and dtr Eric Patel 16 #Hilario 49 yrRetired from [facility] in Retired 2 yrs and moved to [place] Has and 2 dtrs Eliot 22 and Carlotta 21 yr. * Medications:?TakingTylenol E xtra Strength 500 MG Tablet 1 tablet as needed Orally every 6 hrsCeraVe Daily Moisturizing - Lotion as directed Externally Triamcinolone Acet-Dimethicone Tacrolimus 0.1 % Ointment 1 application Externally Once a dayLatanoprost 0.005 % Solution 1 drop into affected eye in the evening Ophthalmic Once a dayMulti Vitamin - Tablet 1 tablet Orally every other dayAspirin 81 MG Tablet Delayed Release 1 tablet Orally Once a dayNitroglycerin 0.4 MG Tablet Sublingual as directed Sublingual 1-2 q 4 hourly PRNCalcium Carb-Cholecalciferol 600-200 MG- UNIT Tablet 1 tablet with a meal Orally Once a dayEntresto 49-51 MG Tablet 1 tablet Orally Twice a dayEzetimibe 10 MG Tablet 1 tablet Orally Once a dayCetirizine HCl 10 MG Tablet 1 tablet Orally Once a dayClopidogrel Bisulfate 75 MG Tablet 1 tablet Orally Once a dayHydrocortisone (Perianal) 2.5 % Cream APPLY EXTERNALLY 2-4 TIME DAILY NEEDED 30 DAYS Alendronate Sodium 70 MG Tablet 1 tablet 30 minutes before the first food, beverage or medicine of the day with plain water Orally once a weekTorsemide 10 MG Tablet 3 PO QD Rosuvastatin Calcium 40 MG Tablet TAKE 1 TABLET ONCE DAILY Pantoprazole Sodium 40 MG Tablet Delayed Release 1 tablet Orally Once a dayMidodrine HCl 5 MG Tablet 2 tabs Orally 3x a dayCalcium & Magnesium Carbonates 975-232 MG Tablet one tablet twice a day Orally bidCholestyramine 4 GM/DOSE Powder 1 scoop Orally Once a dayGabapentin 300 MG Capsule TAKE 1 CAPSULE TWICE DAILY Taking Tylenol Extra Strength 500 MG Tablet 1 tablet as needed Orally every 6 hrsTaking CeraVe Daily Moisturizing - Lotion as directed Externally Taking Triamcinolone Acet- Dimethicone Taking Tacrolimus 0.1 % Ointment 1 application Externally Once a dayTaking Latanoprost 0.005 % Solution 1 drop into affected eye in the evening Ophthalmic Once a dayTaking Multi Vitamin - Tablet 1 tablet Orally every other dayTaking Aspirin 81 MG Tablet Delayed Release 1 tablet Orally Once a dayTaking Nitroglycerin 0.4 MG Tablet Sublingual as directed Sublingual 1-2 q 4 hourly PRNTaking Calcium Carb-Cholecalciferol 600-200 MG-UNIT Tablet 1 tablet with a meal Orally Once a dayTaking Entresto 49-51 MG Tablet 1 tablet Orally Twice a dayTaking Ezetimibe 10 MG Tablet 1 tablet Orally Once a dayTaking Cetirizine HCl 10 MG Tablet 1 tablet Orally Once a dayTaking Clopidogrel Bisulfate 75 MG Tablet 1 tablet Orally Once a dayTaking Hydrocortisone (Perianal) 2.5 % Cream APPLY EXTERNALLY 2-4 TIME DAILY NEEDED 30 DAYS Taking Alendronate Sodium 70 MG Tablet 1 tablet 30 minutes before the first food, beverage or medicine of the day with plain water Orally once a weekTaking Torsemide 10 MG Tablet 3 PO QD Taking Rosuvastatin Calcium 40 MG Tablet TAKE 1 TABLET ONCE DAILY Taking Pantoprazole Sodium 40 MG Tablet Delayed Release 1 tablet Orally Once a dayTaking Midodrine HCl 5 MG Tablet 2 tabs Orally 3x a dayTaking Calcium & Magnesium Carbonates 975-232 MG Tablet one tablet twice a day Orally bidTaking Cholestyramine 4 GM/DOSE Powder 1 scoop Orally Once a dayTaking Gabapentin 300 MG Capsule TAKE 1 CAPSULE TWICE DAILY Not-TakingCarvedilol 3.125 MG Tablet TAKE 1 TABLET BY MOUTH TWICE A DAY WITH FOOD Protonix 40 MG Tablet Delayed Release 1 tablet Orally Once a dayDiclofenac Sodium 3 % Gel apply 2 inches of gel Externally Twice a dayHYDROmorphone HCl 2 MG Tablet 1 tablet as needed Orally every 6 hrs, Notes: takes prn for back pain- rare usehydrOXYzine HCl 10 MG Tablet as directed Orally BIDMenthol-Zinc Oxide 0.44-20.6 % Ointment as directed Externally Medication List reviewed and reconciled with the patientNot-Taking Carvedilol 3.125 MG Tablet TAKE 1 TABLET BY MOUTH TWICE A DAY WITH FOOD Not-Taking Protonix 40 MG Tablet Delayed Release 1 tablet Orally Once a dayNot-Taking Diclofenac Sodium 3 % Gel apply 2 inches of gel Externally Twice a dayNot-Taking HYDROmorphone HCl 2 MG Tablet 1 tablet as needed Orally every 6 hrs, Notes: takes prn for back pain- rare useNot-Taking hydrOXYzine HCl 10 MG Tablet as directed Orally BIDNot-Taking Menthol-Zinc Oxide 0.44-20.6 % Ointment as directed Externally Medication List reviewed and reconciled with the patient * Allergies:?Latex: Allergyno[ Allergies Verified] Objective: * Vitals:?Temp:99 F, HR:98 /mi n, BP:96/43 mm Hg, Wt:163 lbs, BMI:27.12 Index, Ht: 65 in, Ht-cm: 165.1 cm, Wt-k.94 kg. * Examination: ???General Examination: ?GENERAL APPEARANCE:?in no acute distress, well developed, well nourished.?HEAD:?normocephalic, atraumatic.?EYES:?pupils equal, round, reactive to light and accommodation.?EARS:?normal.?ORAL CAVITY:?mucosa moist.?THROAT:?clear.?NECK/THYROID:?neck supple, full range of motion, no cervical lymphadenopathy.?SKIN:?no suspicious lesions, warm and dry.?HEART:?no murmurs, regular rate and rhythm, S1, S2 normal.?LUNGS:?clear to auscultation bilaterally.?ABDOMEN:?normal, bowel sounds present, soft, nontender, nondistended ?Has a drainage bag on right side of abdomen.?EXTREMITIES:?no clubbing, cyanosis,, 3+ pitting edema lower extremities.?NEUROLOGIC:?nonfocal, motor strength normal upper and lower extremities, sensory exam intact.? Assessment: * Assessment: 1.?Spinal stenosis, lumbar r egion with neurogenic claudication - M48.062, surgery x2 , last summer 2020.?2.?Muscular deconditioning - R29.898 (Primary)?3.?Chronic systolic (congestive) heart failure - I50.22?4.?Memory deficit - R41.3? Plan: * Treatment: * Procedure Codes:? * Billing Information: * Visit Code:? 61484 Office Visit, Est Pt., Level 3. * Procedure Codes:? * Sign off status: Completed true * Provider:?Leonid Dickson MD Date:?2022 Generated for Magaly marmolejo/Bebeto/eTransmitting on:?11/14/2024 02:54 PM EST History and Physical Notes * HPI (History of Present Illness) Category Sub-Category Detail Notes Category Not es New/Follow-up Patient Consult 09/13/[address] Saleem is doing a procedure to insert some device to monitor his fluid level. Has a PCM. BP 123/60 Here today requesting PT at home Doesnt have the strength and has having to rashad a cane nore Needs assist on getting up. Asking for home PT , Had someone come [facility] PT who had done good treatment for him and he feels he will benefit. 09/06/23 Looking well Using a cane Came with Karen Had Thanksgiving at [facility] Her Tano Sellers (my patient works at the Group [employer]) did the cooking. Meds reviewed and reconciled Had echo this morning and seeing dr Saleem next week. Fell in the tub and couldnt get up. called the ambulance and they lifted him up. No new complaints. Back still bothers him. 08/25/23 Came with Karen Had severe epistaxis last week . Karen took him to [facility] They did not pack his nose Told not to pick his nose No further epistaxis . Has developed tinnitus of earsm right worse for past 1 week. Doesnt bother him. Going to youngest daughter Roberto Sellers horner in [place] for Thanksgiving 2 other daughters, 6 GC and son in laws will be there Their son and his 2 children will not be coming in [place](retd [employer] Helper has cancer) He was hospitalized at [facility] with cholecystomy and readmitted and had cholecystectomy on 05/20/23 Had sepsis Feeling fine now Meds reviewed and reconcile Went to [facility] on 08/05/23 for a week, had left knee pain 07/28/23 came and saw me today Arnel unable to come because of his unexplained diaarhea whic cause him to have accident Had galbladder remove and this is happening after that 06/22/23 Came in with Karen Livingston 80 yr. Using a cane to walk for his gait Had 2 back operations at [facility] in 2019 [address] Saleem last week No changes in meds Scheduled echo and US of legs Saw surgical PA and she removed 15 martinez fro his abdomen and discharged him. No new issues Weight is better Lost 16 lbs of the fluid weight. Watchs TV, plays on computer Has PT comes in twice week and helps him walk.Has 2 cats. Meds reviewed and reconciled 05/31/23 Came in a accompanied by daughter Karina and his . Had emergency Cholecystectomy on 05/18/23 at [facility] Operated by Dr Copeland () from [facility] . Had abscess of the gall bladder and septic again. Gained 20 lbs water weight when he came home on 05/28/23 . Lost 7 lbs in 3 days when Torsemide was restarted On carvedilol was stopped . On Midrodine for low BP Happens every magda after surgery . Going for detal extraction of two teeth by Dr Berman in [place] on 06/03/[address] luevano pn 06/08/[address] Has FU [address] surgeon Dr Paramjit VAUGHN on 06/09/23 04/29/23 82 yr old male came with his of 60 years He was having left sided abdominal pain and was taken to [facility]. Was hypotensive and transferred to [facility] on 04/10/23 and admitted to ICU with septic shock He was stabilized and surgeon suspected cholycystitis and cholecystomy was done and a drain was put in He was on Ceftrixone and discharged on oral augmentin for a day. on 04/16/23 Came home now with OT/PT andVNA visits. He was supposed to have lower teeth extracted on lower right jaw on 04/19/23 It was postponed. Scheduled for CT abdomen on 05/14/23 . Daughter Bhavna is his HCP . 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 [phone] Doing well at [facility] Had diarrhea but it is better today. His licensing and registration director is Dr Saleem. Sees Dr Mitra payton in [facility] operated on back twice last 2 yrs ago. Previous PCP was DR Razo at [facility] . Left as she wouldny give him pain meds 04/29/23 82 yr old male came with his of 60 years He was having left sided abdominal pain and was taken to [facility]. Was hypotensive and transferred to [facility] on 04/10/23 and admitted to ICU with septic shock He was stabilized and surgeon suspected cholycystitis and cholecystomy was done and a drain was put in He was on Ceftrixone and discharged on oral augmentin for a day. on 04/16/23 Came home now with OT/PT andVNA visits. He was supposed to have lower teeth extracted on lower right jaw on 04/19/23 It was postponed. Scheduled for CT abdomen on 05/14/23 . Daughter Bhavna is his HCP . 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 [phone] Doing well at [facility] Had diarrhea but it is better today. His licensing and registration director is Dr Saleem. Sees Dr Mitra payton in [facility] operated on back twice last 2 yrs ago. Previous PCP was DR Razo at [facility] . Left as she wouldny give him pain meds Examination Category Sub-Category Detail Notes Category Not es General Examination GENERAL APPEARANCE: in no ac gladys distress, well developed, well nourished HEAD: normocephalic, atrau matic EYES: pupils equal, round, reactive to light and accommodation EARS: normal THROAT: clear NECK/THYROID: neck supple, full ra nge of motion, no cervical lymphadenopathy HEART: no murmurs, regular rate and rhythm, S1, S2 normal LUNGS: clear to auscultatio n bilaterally ABDOMEN: normal, bowel sounds present, soft, nontender, nondistended Has a drainage bag on right side of abdomen NEUROLOGIC: nonfocal, motor stre ngth normal upper and lower extremities, sensory exam intact SKIN: no suspicious lesion s, warm and dry EXTREMITIES: no clubbing, cyanosi s,, 3+ pitting edema lower extremities ORAL CAVITY: mucosa moist Consultation Request Notes Referral Date Referring Provider Referred Provider Not meena 09/13/2023 LEONID DICKSON , Refer to [facility] for eval for PT. Had them before
== END 2024-11-14 14:36 | disposition home or self-care (01) ==
PROVIDERS: PCP Internal Medicine; Visit Provider Nurse Practitioner Family
DX: R05.9 Cough, unspecified (principal); Z87.891 Personal history of nicotine dependence
CPT/HCPCS: 99214; G2211

== ENCOUNTER → 2024-11-14 13:54 | Outpatient (BNVA) | payer MEDICARE, OTHER, SELFPAY | PROVIDERS: PCP Internal Medicine; Visit Provider Nurse Practitioner Family | DX: J40 Bronchitis, not specified as acute or chronic (principal); R05.3 Chronic cough; Z87.891 Personal history of nicotine dependence; Z95.1 Presence of aortocoronary bypass graft | CPT/HCPCS: 99212 ==

== ENCOUNTER 2024-11-15 14:44 | Outpatient (REF) | payer MEDICARE, OTHER, SELFPAY ==
--- NOTE | ~2024-11-15 | XR_ITS ---
EXAMINATION: XR CHEST CLINICAL INFORMATION: R05.9 - Cough, unspecified COMPARISON: None available. TECHNIQUE: 2 views of the chest were obtained. FINDINGS: Cardiomediastinal silhouette overlaps the left hemithorax due to patient's positioning. Pulmonary reticular pattern. No consolidation pleural effusion or pneumothorax. Elevated leads in the right heart chambers and coronal sinus. Sternal wires. Vascular clips in the mediastinum. Calcified plaque aorta. Left-sided pacemaker reservoir. Multilevel thoracic and upper lumbar spondylosis. S-shaped curvature of the thoracolumbar spine. Degenerative changes in the shoulders. Osteopenia versus osteoporosis. XR/XR chest 2V IMPRESSION: No acute airspace disease.. Multilevel lumbar spondylosis and likely scoliosis. Electronically signed by: Nii Hwang MD 11/15/2024 03:29 PM JANNA TERAN
--- OUTSIDE RECORDS SUMMARY | 2024-11-15 15:57 | XMS_ITS | Clinical Summary ---
Author Organization [facility] Facility Address [address] [place] [address] Care Team Providers Care Optical Fabrication Technician Name Role Phone Maggie Franz MD Primary Care Provider [phone] Medications acetaminophen (TYLENOL) 325 MG tablet Take [...] 12/06/2017 Influenza Vaccine (#1) 2024 Insurance MEDICARE [facility] MEDICARE [facility] Care Teams Optical Fabrication Technician Relationship Specialty Start Date End Date Maggie Franz MD PCP - General 10/14/20
--- OUTSIDE RECORDS SUMMARY | 2024-11-15 15:57 | XMS_ITS ---
Author Organization [facility] [[email or web address] Address [address] [facility] [address] [place] [address] Care Team Providers Care Head Start Director Name Role Phone ALYSIA FELTON Primary Care Provider ALYSIA FELTON Unavailable [phone] REASON FOR VISIT refill Medications Medication SIG (Take, Route, Fr equency, Duration) Notes Start Date End Date Status Torsemide 10 MG Take 3 tabs Orally O nce a day for 90 days Active Encounters Encounter Location Date Provider Diagnosis [facility] [[email or web address]] [address] [facility] [address] [place] [address] 09/21/2023 ALYSIA FELTON Plan Of Treatment Medication Medication Name Sig Start Date Stop Date Notes Torsemide 10 MG Take 3 tabs Orally Once a day for 90 days Progress Notes * Arnel MARTINEZDOB:1940 (82 yo M)Acc No.[id number]:09/21/2023 Patient:?Lilian Arnel :1940???Age:82 Y???Sex:Male [address] [facility] [place], [address] * Refills? Refill Torsemide Tablet, 10 MG, Orally, 270, Take 3 tabs, Once a day, 90 days, Refills=2 * true * Date:? Generated for Printi ng/Faxing/eTransmitting on:?11/15/2024 03:57 PM EST
--- OUTSIDE RECORDS SUMMARY | 2024-11-15 15:57 | XMS_ITS ---
Author Organization [facility] Address [address] [facility] [address] [place] [address] Care Team Providers Care Window Shade Installer Name Role Phone ALYSIA FELTON Primary Care Provider [phone] ALYSIA FELTON Unavailable [phone] PAULINE CASTRO Unavailable [phone] Results Component Value Reference Range Notes CBC WITH AUTO DIFF Reviewed date:09/14/2023 06:06:35 PM Interpretation: Performing Lab: Notes/Report: Original Ordering Provider: PAULINE CASTRO MD [employer], a member of [address] [address] Recovery Manager - Jada Lu MD WBC 11.3 4.8-10.8 [...] date:09/14/2023 06:06:35 PM Interpretation: Performing Lab: Notes/Report: [employer] [address] Recovery Manager - Jada Lu MD CHOLESTEROL 145 0-200 mg/dL TRIGLYCERIDES 207 0-150 mg/dL HDL CHOLESTEROL 49 >40 mg/dL LDL CALCULATED 55 0-100 mg/dL TC-HDLC RATIO 3.0 0-4.4 mg/dL URINALYSIS Reviewed date:09/14/2023 06:06:35 PM Interpretation: Performing Lab: Notes/Report: Original Ordering Provider: PAULINE CASTRO MD [employer] [address] Recovery Manager - Jada Lu MD GLUCOSE, (UA) NEGATIVE [...] Orders Encounters Encounter Location Date Provider Diagnosis [address] [place] [address] 09/13/2023 PAULINE CASTRO Iron deficiency anem ia, [...] Notes * Arnel MARTINEZDOB:1940 (82 yo M)Acc No.[id number]:09/13/2023 Patient:?Arnel Martinez :1940???Age:82 Y???Sex:Male Address:[address] [place] [address], [address] Subjective: * Chief Complaints: * ???Request For [...] true * Date:? Generated for Magaly marmolejo/Bebeto/eTransmitting on:?11/15/2024 03:56 PM EST
--- OUTSIDE RECORDS SUMMARY | 2024-11-15 15:57 | XMS_ITS | Patient Health Record ---
Author Organization [facility] Address [address] [facility] [address] [place] [address] Care Team Providers Care Feed Blender Name Role Phone ALYSIA FELTON Primary Care Provider [phone] ALYSIA FELTON Unavailable [phone] Allergies Allergen (clinical drug ingredient) Drug/Non Drug [...] Vaccine Route Administration Date Status Comme nts DT Vaccine <7, IM Unknown 07/11/2018 Administered Pneumococcal conjugate PCV 13 Unknown 04/10/2015 Admini stered Pneumococcal polysaccharide PPV23 Unknown 07/15/2006 Ad ministered Social History Tobacco Use: Social History Observation [...] and Roberto and son Hilario. Lives in [place] since 1964 . Karina moved 03/26/2021 to help them and bought the house. Her Kalpana gan and her 2 sons Sukhdev 24(teacher) and Antoine 23 ([facility]) to [employer] for 60 yrs. 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 Has 4 childre #Karina 56 has 2 sons # Nicol 54yrLudlow has 2 sons Jimmie 29 and Madhu 18 yr #Gogo [address]/medical interpreter in Has a son Moncho Alvarez 19yr and dtr Maddingly Amanda 16 #Hilario 49 yrRetired from [employer] in Retired 2 yrs and moved to [place] Has and 2 dtrs Eliot 22 and Carlotta 21 yr Lives in [place] since 1964 . Karina moved 03/26/2021 to help them and bought the house. Her Kalpana gan and her 2 sons Sukhdev 24(teacher) and Antoine 23 ([facility] [employer]) to [employer] for 60 yrs. 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 Has 4 childre #Karina 56 has 2 sons # Nicol 54yrLudlow has 2 sons Jimmie 29 and Madhu 18 yr #Gogo [address]/medical interpreter in Has a son Moncho Alvarez 19yr and dtr Maddingly Amanda 16 #Hilario 49 yrRetired from [employer] in Retired 2 yrs and moved to [place] Has and 2 dtrs Eliot 22 and Carlotta 21 yr Lives in [place] since 1964 . Karina moved 03/26/2021 to help them and bought the house. Her Kalpana gan and her 2 sons Sukhdev 24(teacher) and Antoine 23 ([facility] [employer]) to [employer] for 60 yrs. 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 Has 4 childre #Karina 56 has 2 sons # Nicol 54yrLudlow has 2 sons Jimmie 29 and Madhu 18 yr #Gogo [address]/medical interpreter in Has a son Moncho Alvarez 19yr and dtr Maddingly Amanda 16 #Hilario 49 yrRetired from [employer] in Retired 2 yrs and moved to [place] Has and 2 dtrs Eliot 22 and Carlotta 21 yr Lives in [place] since 1964 . Karina moved 03/26/2021 to help them and bought the house. Her Kalpana gan and her 2 sons Sukhdev 24(teacher) and Antoine 23 ([facility] [employer]) to [employer] for 60 yrs. 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 Has 4 childre #Karina 56 has 2 sons # Nicol 54yrLudlow has 2 sons Ijmmie 29 and Madhu 18 yr #Gogo [address]/medical interpreter in Has a son Moncho Alvarez 19yr and dtr Maddingly Amanda 16 #Hilario 49 yrRetired from [employer] in [employer] Retired 2 yrs and moved to [place] Has and 2 dtrs Eliot 22 and Carlotta 21 yr Lives in [place] since 1964 . Karina moved 03/26/2021 to help them and bought the house. Her Kalpana gan and her 2 sons Sukhdev 24(teacher) and Schultz 23 ([facility] [employer]) to [employer] for 60 yrs. 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 Has 4 childre #Karina 56 has 2 sons # Nicol 54yrLudlow has 2 sons Jimmie 29 and Madhu 18 yr #Gogo [address]/medical interpreter in Has a son Moncho Alvarez 19yr and dtr Maddingly Amanda 16 #Hilario 49 yrRetired from [employer] in Retired 2 yrs and moved to [place] Has and 2 dtrs Eliot 22 and [...] and Roberto and son Hilario. Lives in [place] since 1965 . Karina moved 03/26/2021 to help them and bought the house. Her Kalpana gan and her 2 sons Sukhdev 24(teacher) and Antoine 23 (J) to [employer] for 60 yrs. 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 Has 4 childre #Karina 56 has 2 sons # Nicol 54yrLudlow has 2 sons Jimmie 29 and Madhu 18 yr #Gogo [address]/medical interpreter in Has a son Moncho Alvarez 19yr and dtr Eric Patel 16 #Hilario 49 yrRetired from [employer] [employer] in Retired 2 yrs and moved to [place] Has and 2 dtrs Eliot 22 and [...] and Roberto and son Hilario. Lives in [place] since 1964 . Karina moved 03/26/2021 to help them and bought the house. Her Kalpana gan and her 2 sons Sukhdev 24(teacher) and Antoine 23 ([facility]) to [employer] for 60 yrs. 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 Has 4 childre #Karina 56 has 2 sons # Nicol 54yrLudlow has 2 sons Jimmie 29 and Madhu 18 yr #Gogo [address]/medical interpreter in Has a son Moncho Alvarez 19yr and dtr Eric Patel 16 #Hilario 49 yrRetired from [employer] in Retired 2 yrs and moved to [place] Has and 2 dtrs Eliot 22 and Carlotta 21 yr Problems Problem Type SNOMED Code ICD Code Onset Dates Problem Status W/U Status Risk Notes Problem 38304567 Hypokalemia (E87.6) Active confirmed 09/06/23 Potassium 2.9 Taking potassium powsder every othe Told to take it daily and check after 7 days Problem Hypertensive heart AND chronic kidney disease with congestive heart failure (24739498157342) Hypertensive heart and chronic kidney disease with heart failure and stage 1 through stage 4 chronic kidney disease, or unspecified chronic kidney disease (I13.0) Active confirmed Problem Chronic systolic heart failure (325440205) Chronic systolic (congestive) heart failure (I50.22) Active confirmed Problem 02392810 Intestinal malabsorption, unspecified (K90.9) Active confirmed Problem Septic shock (25150111) Severe sepsis with septic shock (R65.21) Active confirmed 05/31/23 [place] d full of fluids Discharged with 20 lbs in fluid weight gain Lost 7 lbs in 3 days Problem Osteoporosis (96141285) Osteoporosis (M81.0) Active confirmed femoral neck -2.June Problem 349162885 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 Anemic but stool heme negative. Discussed food triggers. OMeprazole 40mg bid past GI note received and reviewed Problem 090597084 Primary osteoarthritis of both knees (M17.0) Active confirmed hx of TKR bilaterally Uses walker or cane. use acetaminophen and diclofenac gel. Problem 22779881 Eczema, unspecified type (L30.9) Active confirmed has been eval b y derm at [place] but practice closed Given name and number for [facility] and told to call 01/05/22 the first day the practice opens. take zyrtec and prn hydrolozine. uses hydrocort 2.5% cream until derm reevals Problem 164838968 Coronary artery disease involving [place] coronary artery of [place] heart without angina pectoris (I25.10) Active confirmed Dr Saleem. Has had CABG with multivessel revascularizatio n. Aug 2020 EF 30-35%. Has ICD> reports no cardiac sx, reports compliance with meds. cardiology notes requested. no med changes today. Problem 624479235 Hx of myocardial infarction (I25.2) Active confirmed followed by [facility]. Problem 706081022 PVD (peripheral vascular disease) (I73.9) Active confirmed hx of cellulitis in RLE 2017 and ulcer on right second toe 2019 Has been followed by vascular. Hx of stent in left common ileac artery 12/2017. imaging 11/26/20 by [facility] right common femoral art, right proximal SFA and left proximal common ileac artery all 50-90% occlusion. left common ileac < 50% left popliteal 50-90% occlusion left common femoral 20-50% Angiogram 01/2021 Cont high dose statins, lower fat diet. activity not limited by claudication Problem 61786550 PAM (obstructive sleep apnea) (G47.33) Active confirmed has avoided sleep study but now scheduled through the cardiology office. discussed lack of O2 to brain as well as connection of Afib and PAM> He plans to keep eval scheduled for Jun. Problem 172836222 Fatty liver (K76.0) Active confirmed will recheck labs Problem 459185810 Hospital discharge follow-up (Z09) Active confirmed 04/29/23 Reviewed records Meds reviewed Only omeprazole changed to Pantaprozole Doing well I told him I cannot give medical clearance for his surgery and will refr him to Dr Saleem tenzin 05/31/23 Readmitted to [facility] for emergent open cholecystectomy as had septic shock Problem 189692578 Memory deficit (R41.3) Active confirmed Problem 11677510 Iron deficiency anemia, unspecified iron deficiency anemia type (D50.9) Active confirmed denies fatigue, easy bruising, blood in stool will check labs Problem 35248406 Stenosis of carotid artery, unspecified laterality (I65.29) Active confirmed 2017 right 50% and left 50-79% Hx of right carotid endarterectomy by Dr Altamirano 2011 Problem Solitary pulmonary nodule (978721585) Lung nodule, solitary (R91.1) Active confirmed Problem 15027238 Spinal stenosis, lumbar region with neurogenic claudication (M48.062) Active confirmed surgery x2 , last summer 2020. Problem 789432750 Chronic systolic heart failure (I50.22) Active confirmed Has not had SOB or ORTIZ, edema or decrease in energy. cont meds. [facility] cardiovascual Last echo dated 08.15.21 EF 30-35% LBBB, mild enlargement right ventricle. no evidence pulmonary hypertension. Problem History of excision of intestinal structure (533460349) S/P cholecystectomy (Z90.49) Active confirmed 05/18/23 Dr Starr lee at [facility] Problem 963876977 Longstanding persistent atrial fibrillation (I48.11) Active confirmed began after CABGx4 in 2018 On clopidogril Has ICD. no episodes racing or irreg heart rate. cardiology notes requested Problem 44629809 Hypercholesterem ia (E78.00) Active confirmed on crestor and zetia. Was on Repatha in past but developed back pain so med d/c. 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 followed by vascular surgery Problem 228144944 Cholecystostomy care (Z43.4) Active confirmed Plan Of [...] - J14 [address] RACHEL RODRIGUEZ [address] [id number] Arnel Hernandez Self - patient is the insured [address] [phone] [id number] Arnel Hernandez Self - patient is the insured Medical (General) History Medical History History ICD Code SD's in 40's Spinal stenosis of lumbar region without neurogenic claudication M48.061 Covid February 16, 2022 Had antibody infus ion Surgical History Surgery Date(Month/Year) CABG12/2017 total knee replacements bilaterally left 05/2010 right 01/2011 carotid endarterectomy 2011 left common femoral edartere ctomy and ileac stenting. Dr Saleem at [facility] December 2017 oblique fracture of distal shaft right f emur 06/2018 removal squamous cell cancer 08/2013 lumbar decompression at [facility] 04/27/2019 Lumbar Fusion (2 Day Surgery) 03/28/2021- 03/29/2021 Right Stent @ [facility] 02/2021 Defibrillator/Pacer Aug 202008/[address] Barrios at [facility] 05/18/23
== END 2024-11-15 14:45 | disposition home or self-care (01) ==
LOC: HO.HMGCX 14:44
PROVIDERS: PCP Internal Medicine; Visit Provider Nurse Practitioner Family
DX: R05.9 Cough, unspecified (principal)
CPT/HCPCS: 71046

== ENCOUNTER → 2024-11-15 14:52 | Outpatient (BNV) | payer MEDICARE, OTHER, SELFPAY | PROVIDERS: PCP Internal Medicine; Visit Provider Radiology Diagnostic Radiology | DX: R05.9 Cough, unspecified (principal) | CPT/HCPCS: 71046 ==

== ENCOUNTER 2024-11-21 09:30 | Outpatient (REF) | payer MEDICARE, OTHER, SELFPAY ==
--- OUTSIDE RECORDS SUMMARY | 2024-11-21 14:04 | XMS_ITS | Encounter Summary ---
Author Organization [facility] Address [address] [place] [address] Care Team Providers Care Process Laboratory Specialist Name Role Phone Maggie Franz MD Primary Care Provider [phone] [facility], Pcp Primary Care Provider Unavailabl e Maggie Franz MD Primary Care Provider [phone] [facility], Pcp Primary Care Provider Unavailabl e Reason for Visit * Reason Onset Date Comments Annual Wellness Outreach 07/30/2021 Encounter Details Date Type Department Care Team Description 07/30/2021 Telephone Adult Medicine [address] [phone] Maggie Franz MD [address] [place] [address] [phone] Annual Wellness Outreach Social History Tobacco Use Types Packs/Day Years Used Date Smoking Tobacco: Former Cigarettes 1 8 Q uit: 10/04/1969 Smokeless Tobacco: Never Comments:QUIT 1969, Started @ age 16 Alcohol Use Standard Drinks/Week Comments Yes 0 (1 standard drink = 0.6 oz pur e alcohol) highball daily 2 drinks today Sex Assigned at Date Recorded Not on file documented as of this encounter Miscellaneous Notes * Telephone Encounter - Mac Acevedo M.A. - 07/30/2021 1:07 PM EDT Mr. Quintana was contacted by telephone. 1st attempt. Lvm. documented in this encounter Plan of Treatment Not on file documented as of this encounter Visit Diagnoses Not on filedocumented in this encounter Care Teams Process Laboratory Specialist Relationship Specialty Start Date End Date Maggie Franz MD [address] [place] [address] PCP - General 02/14/04 11/09/21 [facility], Pcp [address] [place] [address] PCP - General Internal Medicine 11/10/21 01/18/22 Maggie Franz MD [address] [place] [phone] PCP - General Internal Medicine 01/19/22 02/18/22 [facility], Pcp [address] [place] [address] PCP - General Internal Medicine 02/19/22 documented as of this encounter
--- OUTSIDE RECORDS SUMMARY | 2024-11-21 14:04 | XMS_ITS | Encounter Summary ---
Author Organization [facility] Address [address] [place] [address] Care Team Providers Care Vacuum Pan Operator Name Role Phone Maggie Franz MD Primary Care Provider [phone] [facility]cp Primary Care Provider Unavailluciano e Maggie Franz MD Primary Care Provider [phone] [facility], [facility]cp Primary Care Provider Unavailabl e Encounter Details Date Type Department Care Team Description 09/20/2014 [facility] Medical Records [address] [place] [phone] Abstract, Provider Social History Tobacco Use Types Packs/Day Years Used Date Smoking Tobacco: Former Cigarettes Q uit: 10/04/1969 Smokeless Tobacco: Never Comments:QUIT 1969, Started @ age 16 Alcohol Use Standard Drinks/Week Comments Yes 0 (1 standard drink = 0.6 oz pur e alcohol) [place]ball daily Sex Assigned at Date Recorded Not on file documented as of this encounter Plan of Treatment Not on file documented as of this encounter Procedures Procedure Name Priority Date/Time Associated Diagnosis Comments OUTSIDE VASCULAR STUDY Routine 07/20/2014 documented in this encounter Results * OUTSIDE VASCULAR STUDY (07/20/2014) Provider Abstract CARDIOLOGY documented in this encounter Visit Diagnoses Not on filedocumented in this encounter Care Teams Vacuum Pan Operator Relationship Specialty Start Date End Date Maggie Franz MD [address] [place] [address] PCP - General 02/14/04 11/09/21 [facility] [address] [place] [address] PCP - General Internal Medicine 11/10/21 01/18/22 Maggie Franz MD [address] [place] [address] PCP - General Internal Medicine 01/19/22 02/18/22 [facility]cp [address] [place] [address] PCP - General Internal Medicine 02/19/22 documented as of this encounter
--- OUTSIDE RECORDS SUMMARY | 2024-11-21 14:04 | XMS_ITS | Encounter Summary ---
Author Organization [facility] Address [address] [place] [address] Care Team Providers Care Mobile Home Installer Name Role Phone Maggie Franz MD Primary Care Provider [phone] [facility], Pcp Primary Care Provider [facility] Maggie Franz MD Primary Care Provider [phone] [facility], Pcp Primary Care Provider Unavailabl e Encounter Details Date Type Department Care Team Description 04/09/2021 Telephone Adult Medicine [address] [phone] Maggie Franz MD [address] [place] [address] [phone] Social History Tobacco Use Types Packs/Day Years Used Date Smoking Tobacco: Former Cigarettes 1 8 Q uit: 10/04/1969 Smokeless Tobacco: Never Comments:QUIT 1969, Started @ age 16 Alcohol Use Standard Drinks/Week Comments Yes 0 (1 standard drink = 0.6 oz pur e alcohol) highball daily 2 drinks today Sex Assigned at Date Recorded Not on file COVID-19 Exposure Response Date Recorded In the last month, have you been in contact with someone who was confirmed or suspected to have Coronavirus / COVID-19? No / Unsure 03/20/2021 2:40 PM EDT documented as of this encounter Plan of Treatment Not on file documented as of this encounter Visit Diagnoses Not on filedocumented in this encounter Care Teams Mobile Home Installer Relationship Specialty Start Date End Date Maggie Franz MD [address] [place] [address] PCP - General 5/13/04 2/6/22 [facility], Pcp [address] [place] [address] PCP - General Internal Medicine 11/10/21 01/18/22 Maggie Franz MD [address] [place] [address] PCP - General Internal Medicine 01/19/22 02/18/22 [facility], Pcp [address] [place] [address] PCP - General Internal Medicine 02/19/22 documented as of this encounter
--- OUTSIDE RECORDS SUMMARY | 2024-11-21 14:04 | XMS_ITS | Encounter Summary ---
Author Organization [facility] Address [address] [place] [address] Care Team Providers Care Asphalt Heater Operator Name Role Phone Maggie Franz MD Primary Care Provider [facility], 1928–1983, Pcp [facility] Franz MD Primary Care Provider [phone] [facility], 1928–1983, Pcp Primary Care Provider Unavailabl e Encounter Details Date Type Department Care Team Description 10/07/2017 Hospital Medical Records [address] [place] [address]600 Prudencio Rascon MD [address] [place] [address] [phone] Social History Tobacco Use Types Packs/Day Years [...] on filedocumented in this encounter Care Teams Asphalt Heater Operator Relationship Specialty Start Date End Date Maggie Franz MD [address] [place] [address] [phone] PCP - General 02/14/04 11/09/21 [facility], 1928–1983, Pcp [address] [place] [address] 40629 PCP - General Internal Medicine 11/10/21 01/18/22 Maggie Franz MD [address] [place] [address] 01741 PCP - General Internal Medicine 01/19/22 02/18/22 [facility], 1928–1983, Pcp [address] [place] [address] 35971 PCP - General Internal Medicine 02/19/22 documented as of this encounter
--- OUTSIDE RECORDS SUMMARY | 2024-11-21 14:04 | XMS_ITS | Encounter Summary ---
Author Organization [facility] Address [address] [place] [address] Care Team Providers Care Tso Name Role Phone Maggie Franz MD Primary Care Provider [phone] [facility], Pcp Primary Care Provider [facility] Maggie Franz MD Primary Care Provider [phone] [facility], Pcp Primary Care Provider Unavailabl e Encounter Details Date Type Department Care Team Description 04/16/2021 Jack Spooler Tender Report Medical Records [address] [place] [address] 79792 Rome Saleem MD Social History Tobacco Use Types Packs/Day Years [...] on filedocumented in this encounter Care Teams Tso Relationship Specialty Start Date End Date Maggie Franz MD [address] [place] [address] [phone] PCP - General 02/14/04 11/09/21 [facility], Pcp [address] [place] [address] 14536 PCP - General Internal Medicine 11/10/21 01/18/22 Maggie Franz MD [address] [place] [address] 34210 PCP - General Internal Medicine 01/19/22 02/18/22 [facility], Pcp [address] [place] [address] 58308 PCP - General Internal Medicine 02/19/22 documented as of this encounter
--- OUTSIDE RECORDS SUMMARY | 2024-11-21 14:04 | XMS_ITS | Encounter Summary ---
Author Organization [facility] Address [address] [place] [address] Care Team Providers Care Healthcare Interpreter Name Role Phone Maggie Franz MD Primary Care Provider [phone] [facility], Pcp Primary Care Provider [facility] Maggie Franz MD Primary Care Provider [phone] [facility], Pcp Primary Care Provider Unavailabl e Encounter Details Date Type Department Care Team Description 10/07/2017 Art Museum Aide Report Medical Records [address] [place] [address] 02338 Prudencio Rascon MD [address] [place] [address] [phone] Social History Tobacco Use Types Packs/Day Years [...] on filedocumented in this encounter Care Teams Healthcare Interpreter Relationship Specialty Start Date End Date Maggie Franz MD [address] [place] [address] 01020 PCP - General 02/14/04 11/09/21 [facility], Pcp [address] [place] [address] [phone] PCP - General Internal Medicine 11/10/21 01/18/22 Maggie Franz MD [address] [place] [address] 61197 PCP - General Internal Medicine 01/19/22 02/18/22 [facility], Pcp [address] [place] [address] [phone] PCP - General Internal Medicine 02/19/22 documented as of this encounter
--- OUTSIDE RECORDS SUMMARY | 2024-11-21 14:04 | XMS_ITS | Encounter Summary ---
Author Organization [facility] Address [address] [place] [address] Care Team Providers Care Maintenance Coordinator Name Role Phone Maggie Franz MD Primary Care Provider [phone] [facility], Pcp Primary Care Provider UnavailMaggie Carson MD Primary Care Provider [phone] [facility], Pcp Primary Care Provider Unavailabl e Encounter Details Date Type Department Care Team Description 09/08/2017 Opticianry Teacher Report Medical Records [address] [place] [address] 55886 Rome Saleem MD Social History Tobacco Use [...] on filedocumented in this encounter Care Teams Maintenance Coordinator Relationship Specialty Start Date End Date Maggie Franz MD [address] [place] [address] 81123 PCP - General 02/14/04 11/09/21 [facility], Pcp [address] [place] [address] 59442 PCP - General Internal Medicine 11/10/21 01/18/22 Maggie Franz MD [address] [place] [address] [phone] PCP - General Internal Medicine 01/19/22 02/18/22 [facility], Pcp [address] [place] [address] PCP - General Internal Medicine 02/19/22 documented as of this encounter
--- OUTSIDE RECORDS SUMMARY | 2024-11-21 14:04 | XMS_ITS | Encounter Summary ---
Author Organization [facility] Address [address] [place] [address] Care Team Providers Care Transitions Rn Care Coordinator Name Role Phone Maggie Franz MD Primary Care Provider [phone] [facility], Pcp Primary Care Provider Maggie Combs MD Primary Care Provider [phone] [facility], Pcp Primary Care Provider Unavailluciano e Encounter Details Date Type Department Care Team Description 03/24/2018 Medical Record Administrator Report Medical Records [address] [place] [address] 29244 Karoline Og Social History Tobacco Use Types Packs/Day Years Used Date Smoking Tobacco: Former Cigarettes Q uit: 10/04/1969 Smokeless Tobacco: Former Comments:QUIT 1969, Started @ age 16 Alcohol Use Standard Drinks/Week Comments Yes 0 (1 standard drink = 0.6 oz pur e alcohol) [place] daily 2 drinks today Sex Assigned at Date Recorded Not on file documented as of this encounter Plan of Treatment Not on file documented as of this encounter Visit Diagnoses Not on filedocumented in this encounter Care Teams Transitions Rn Care Coordinator Relationship Specialty Start Date End Date Maggie Franz MD [address] [place] [address] 05883 PCP - General 02/14/04 11/09/21 [facility], Pcp [address] [place] [address] 74125 PCP - General Internal Medicine 11/10/21 01/18/22 Maggie Franz MD [address] [place] [address] [phone] PCP - General Internal Medicine 01/19/22 02/18/22 [facility], Pcp [address] [place] [address] PCP - General Internal Medicine 02/19/22 documented as of this encounter
--- OUTSIDE RECORDS SUMMARY | 2024-11-21 14:04 | XMS_ITS | Encounter Summary ---
Author Organization [facility] Address [address] [place] [address] Care Team Providers Care Commercial Or Institutional Cleaner Name Role Phone Maggie Franz MD Primary Care Provider [phone] [facility], Pcp Primary Care Provider UnavailMaggie Carson MD Primary Care Provider [phone] [facility], Pcp Primary Care Provider Unavailabl e Encounter Details Date Type Department Care Team Description 09/13/2019 Wildland Firefighter Report Medical Records [address] [place] [address] 84214 Rome Saleem MD Social History Tobacco Use [...] on filedocumented in this encounter Care Teams Commercial Or Institutional Cleaner Relationship Specialty Start Date End Date Maggie Franz MD [address] [place] [address] 22372 PCP - General 02/14/04 11/09/21 [facility], Pcp [address] [place] [address] 30036 PCP - General Internal Medicine 11/10/21 01/18/22 Maggie Franz MD [address] [place] [address] [phone] PCP - General Internal Medicine 01/19/22 02/18/22 [facility], Pcp [address] [place] [address] PCP - General Internal Medicine 02/19/22 documented as of this encounter
--- OUTSIDE RECORDS SUMMARY | 2024-11-21 14:04 | XMS_ITS | Encounter Summary ---
Author Organization [facility] Address [address] [place] [address] Care Team Providers Care Transcription Specialist Name Role Phone Maggie Franz MD Primary Care Provider [phone] [facility], Pcp Primary Care Provider Unavailluciano e Maggie Franz MD Primary Care Provider [phone] [facility], Pcp Primary Care Provider Unavailabl e Encounter Details Date Type Department Care Team Description 02/09/2018 Steel Erector Apprentice Report Medical Records [address] [place] [address] 37577 Rome Saleem MD Social History Tobacco Use [...] on filedocumented in this encounter Care Teams Transcription Specialist Relationship Specialty Start Date End Date Maggie Franz MD [address] [place] [address] 80354 PCP - General 02/14/04 11/09/21 [facility], Pcp [address] [place] [address] 38998 PCP - General Internal Medicine 11/10/21 01/18/22 Maggie Franz MD [address] [place] [address] [phone] PCP - General Internal Medicine 01/19/22 02/18/22 [facility], Pcp [address] [place] [address] PCP - General Internal Medicine 02/19/22 documented as of this encounter
--- OUTSIDE RECORDS SUMMARY | 2024-11-21 14:04 | XMS_ITS | Encounter Summary ---
Author Organization [facility] Address [address] [place] [address] Care Team Providers Care Sales Agent Pest Control Service Name Role Phone Maggie Franz MD Primary Care Provider [phone] [facility], Pcp Primary Care Provider UnavailMaggie Carson MD Primary Care Provider [phone] [facility], Pcp Primary Care Provider Unavailluciano e Encounter Details Date Type Department Care Team Description 06/15/2018 Hospital Medical Records [address] [place] [address] 11668 Renate Rivera, PAJostinC Social History Tobacco Use Types Packs/Day Years [...] on filedocumented in this encounter Care Teams Sales Agent Pest Control Service Relationship Specialty Start Date End Date Maggie Franz MD [address] [place] [address] [phone] PCP - General 02/14/04 11/09/21 [facility], Pcp [address] [place] [address] 01359 PCP - General Internal Medicine 11/10/21 01/18/22 Maggie Franz MD [address] [place] [address] [phone] PCP - General Internal Medicine 01/19/22 02/18/22 [facility], Pcp [address] [place] [address] PCP - General Internal Medicine 02/19/22 documented as of this encounter
--- OUTSIDE RECORDS SUMMARY | 2024-11-21 14:04 | XMS_ITS | Encounter Summary ---
Author Organization [facility] Address [address] [place] [address] Care Team Providers Care Oracle Bpm Developer Name Role Phone Maggie Franz MD Primary Care Provider [phone] [facility], Pcp Primary Care Provider UnavailMaggie Carson MD Primary Care Provider [phone] [facility], Pcp Primary Care Provider Unavailluciano e Encounter Details Date Type Department Care Team Description 07/01/2018 Hospital Medical Records [address] [place] [address] Social History Tobacco Use Types Packs/Day Years [...] on filedocumented in this encounter Care Teams Oracle Bpm Developer Relationship Specialty Start Date End Date Maggie Franz MD [address] [place] [address] [phone] PCP - General 02/14/04 11/09/21 [facility], Pcp [address] [place] [address] 43832 PCP - General Internal Medicine 11/10/21 01/18/22 Maggie Franz MD [address] [place] [address] [phone] PCP - General Internal Medicine 01/19/22 02/18/22 [facility], Pcp [address] [place] [address] PCP - General Internal Medicine 02/19/22 documented as of this encounter
--- OUTSIDE RECORDS SUMMARY | 2024-11-21 14:04 | XMS_ITS | Encounter Summary ---
Author Organization [facility] Address [address] [place] [address] Care Team Providers Care Medicare Insurance Specialist Name Role Phone Maggie Franz MD Primary Care Provider [phone] [facility], Pcp Primary Care Provider UnavailMaggie Carson MD Primary Care Provider [phone] [facility], Pcp Primary Care Provider Unavailabl e Encounter Details Date Type Department Care Team Description 01/14/2018 Slot Shift Supervisor Report Medical Records [address] [place] [address] 25845 Iliana Edmond NP Social History Tobacco Use Types Packs/Day Years [...] on filedocumented in this encounter Care Teams Medicare Insurance Specialist Relationship Specialty Start Date End Date Maggie Franz MD [address] [place] [address] 35422 PCP - General 02/14/04 11/09/21 [facility], Pcp [address] [place] [address] 61644 PCP - General Internal Medicine 11/10/21 01/18/22 Maggie Franz MD [address] [place] [address] [phone] PCP - General Internal Medicine 01/19/22 02/18/22 [facility], Pcp [address] [place] [address] PCP - General Internal Medicine 02/19/22 documented as of this encounter
--- OUTSIDE RECORDS SUMMARY | 2024-11-21 14:04 | XMS_ITS | Encounter Summary ---
Author Organization [facility] Address [address] [place] [address] Care Team Providers Care Rn Ed Name Role Phone Maggie Franz MD Primary Care Provider [phone] [facility], Pcp Primary Care Provider Unavailabl e Maggie Franz MD Primary Care Provider [phone] [facility], Pcp Primary Care Provider Unavailabl e Reason for Visit * Reason Onset Date Comments Provider Call Back 10/08/2014 Encounter Details Date Type Department Care Team Description 10/08/2014 Telephone Physiatry - [address] [address] Cece Lyons MD [address] [place] [address] [place], [place] [phone] Provider Call Back Social History Tobacco Use Types Packs/Day Years Used Date Smoking Tobacco: Former Cigarettes Q uit: 10/04/1969 Smokeless Tobacco: Never Comments:QUIT 1969, Started @ age 16 Alcohol Use Standard Drinks/Week Comments Yes 0 (1 standard drink = 0.6 oz pur e alcohol) [place] daily Sex Assigned at Date Recorded Not on file documented as of this encounter Miscellaneous Notes * Telephone Encounter - Briana Alonso M.A. - 10/08/2014 10:30 AM EST I will call patient to book injection * Telephone Encounter - Cece Lyons MD - 10/08/2014 10:09 AM EST Lets try caudal epidural injection instead. I'll put in order for inj and levo. * Telephone Encounter - Briana Alonso M.A. - 10/08/2014 10:07 AM EST Please advise * Telephone Encounter - Kim Kirkland - 10/08/2014 9:59 AM EST Pt calling with increased back pain, knee pain also having pain with walking. Pt states first injection was not helpful (bilateral L4 TFE done 07/06/14) pt would like to know should a second one be scheduled? Please advise. documented in this encounter Plan of Treatment Scheduled Orders Name Type Priority Associated Diagnoses Orde r Schedule PHYSIATRY PROCEDURE PHYSIATRY Routine Lumbar spinal stenosis Ordered: 10/08/2014 documented as of this encounter Visit Diagnoses Diagnosis Lumbar spinal stenosis- Primary Spinal stenosis, lumbar region, without neurogenic claudication documented in this encounter Care Teams Rn Ed Relationship Specialty Start Date End Date Maggie Franz MD [address] [place] [address] 78693 PCP - General 02/14/04 11/09/21 [facility], Pcp [address] [place] [address] 79923 PCP - General Internal Medicine 11/10/21 01/18/22 Maggie Franz MD [address] [place] [address] [phone] PCP - General Internal Medicine 01/19/22 02/18/22 [facility], Pcp [address] [place] [address] [phone] PCP - General Internal Medicine 02/19/22 documented as of this encounter
--- OUTSIDE RECORDS SUMMARY | 2024-11-21 14:04 | XMS_ITS | Clinical Summary ---
Author Organization [facility] Address [address] [place] [address] Care Team Providers Care Field Operations Coordinator Name Role Phone [facility], Pcp Primary Care Provider Unavailabl e Allergies Active Allergy Reactions Severity Noted Date Comments Latex Rash/Dermatitis 12/11/2020 Medications Medication Sig Dispensed Refills Start Date End Date Status MULTIPLE VITAMIN OR 1 Q.D. 0 Activ e ASPIRIN 81 MG OR TABS 1 TABLET DAILY 0 Active nitroGLYCERIN (NITROQUICK) 0.[address] 1 Tab under the tongue every 5 minutes as needed for Chest pain (once every 5 minutes PRN chest pain do not use more than 3 times in a 15-minute period). 30 Tab 1 07/09/2017 Active latanoprost (XALATAN) 0.005 % ophthalmic solution 1 Drop at bedtime. O.u. 0 Active Calcium Carb-Cholecalcifero l (CALCIUM + D3) 600-200 MG-UNIT Tab Take 1 Tab by mouth daily. 0 Active ENTRESTO 49-51 MG Tab 0 08/23/2019 Active ezetimibe (ZETIA) 10 MG tablet Take 10 mg by mouth every other day. 0 Active Menthol-Zinc Oxide (CALMOSEPTINE) 0.44-20.6 % Ointment Apply 1 Each topically 4 times daily. 1 Tube 11 09/04/2020 Active cetirizine (ZYRTEC) 10 MG tablet Take 1 Tab by mouth daily for 360 days. 30 Tab 11 09/16/2020 Active clopidogrel (PLAVIX) 75 MG tablet Take 1 Tab by mouth daily. 90 Tab 1 12/11/2020 Active rosuvastatin (CRESTOR) 40 MG tablet Take 1 Tab by mouth daily. 90 Tab 1 12/11/2020 Active omeprazole (PRILOSEC) 20 MG capsule Take 1 capsule by mouth daily for 360 days. 30 capsule 5 03/20/2021 Active hydrocortisone 2.5 % cream APPLY SPARINGLY TO THE AFFECTED AREAS 2-4 TIMES DAILY NEEDED 28.35 g 6 04/14/2021 Active carvedilol (COREG) 3.125 MG tablet TAKE 1 TABLET TWICE DAILY WITH MEALS 180 tablet 1 05/08/2021 Active torsemide (DEMADEX) 10 MG tablet TAKE 1 AND 1/2 TABLETS DAILY 135 tablet 1 05/09/2021 Active gabapentin (NEURONTIN) 300 MG capsule TAKE 1 CAPSULE 3 TIMES A DAY 270 capsule 0 07/09/2021 Active hydrOXYzine (ATARAX) 10 MG tablet TAKE 1 TABLET BY MOUTH 2 TIMES DAILY. 180 tablet 1 09/23/2021 Active Active Problems Problem Noted Date Femur fracture, right 07/11/2018 Overview: orif distal right femurfracture 06/21 Atrial fibrillation 01/10/2018 Overview: Post op CABG 12/19 CHF (congestive heart failure) 8 Overview: Post op CABG PVD (peripheral vascular disease) 2017 Overview: SFA stent left 12/19 08/24 50-99% stenosis left common femoral artery, left popliteal, right common femoral artery History of squamous cell carcinoma 02/21 Overview: 08/2013 PAM (obstructive sleep apnea) 06/01/2014 Lumbar spinal stenosis 05/13/2014 Overview: multilevel Total knee replacement status 06/10/2010 Overview: Left knee 05/13 Right knee 01/12 Carotid artery stenosis 01/07/2010 Overview: RAFAEL 80-99% stenosis, 08/15- endarterectomy LICA 49% stenosis Hypertension 08/19/2009 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 Fatty liver, without mention of alcohol 02/04/2009 Obesity 04/18/2008 ECZEMA, 10/02/2005 HYPERCHOLESTEROLEMIA 10/01/2005 Old DC (myocardial infarction) 5 Overview: DC 1985, CABG 12/19 Immunizations Name Administration Dates Next Due COVID-19 (Pfizer) Pt Reported 11/29/2020, 021 Influenza (> 6 Months) 09/19/2014,2012,08/29/2012,08/20,08/15/2010,10/01/2008,08/23/2007 ,07/15/2006,10/06/2005 Influenza vaccine high dose age 65 and over 07/08/2020,07/28/2019,07/11/2018 Pneumoccoccal(Adult) Polysac charide PPSV23 07/15/2006,06/03/1999 Pneumococcal Conjugate PCV-13 04/10/2015 TD (STATE SUPPLIED FOR ADULT S AND CHILDREN) 07/11/2018,10/01/2008,10/04/1998 Family History Medical History Relation Name Comments DC Father 56 DC Mother 52 CABG Sister Relation Name Status Comments Father Mother Sister Social History Tobacco Use Types Packs/Day Years Used Date Smoking Tobacco: Former Cigarettes 1 8 Q uit: 10/04/1969 Smokeless Tobacco: Never Comments:QUIT 1969, Started @ age 16 Alcohol Use Standard Drinks/Week Comments Yes 0 (1 standard drink = 0.6 oz pur e alcohol) [place]ball daily 2 drinks today Sex Assigned at Date Recorded Not on file Last Filed Vital Signs Vital Sign Reading Time Taken Comments Blood Pressure 118/60 03/20/2021 2:48 PM EDT Pulse 82 03/20/2021 2:48 PM EDT Temperature 36.6 ??C (97.9 ??F) 03/20/2021 2 :48 PM EDT Respiratory Rate 14 03/20/2021 2:48 PM EDT Oxygen Saturation 94% 03/20/2021 2:4 8 PM EDT at rest, room air Inhaled Oxygen Concentration - - Weight 79.4 kg (175 lb) 03/20/2021 2:48 PM EDT Height 163.8 cm (5' 4.5 ) 03/20/2021 2: 48 PM EDT Body Mass Index 29.57 03/20/2021 2:48 PM EDT Plan of Treatment Health Maintenance Due Date Last Done Comments SHINGLES VACCINE (1 of 2) 1990 DEPRESSION SCREEN 03/06/2020 03/06/2019 DIABETES/HEART DISEASE: DUNG JIMENEZ CHOLESTEROL (LDL) 12/11/2021 12/11/2020, 02/15/2020, 05/31/2019, Additional history exists FALL RISK ASSESSMENT 12/11/2021 12/11/2020, 03/06/20 19 Covid-19 Vaccine (3 - 2022-2 4 season) 2024 11/29/2020, 11/08/2020 INFLUENZA (#1) 2024 07/08/2020, 07/05, 07/11/2018, Additional history exists BMI CHECK/ADVISE 10/04/2024 12/11/2020, 11/2019, 08/07/2020, Additional history exists DTAP/TDAP/TD (3 - Td or Tdap) 07/11/2028, 06/10/2016 (Refused), 10/01/2008, Additional history exists PNEUMOCOCCAL VACCINE Completed 04/10/2015, 07/15/2006, 06/03/1999 Care Teams Field Operations Coordinator Relationship Specialty Start Date End Date [facility], Pcp PCP - General Internal Medicine 02/19/22
--- OUTSIDE RECORDS SUMMARY | 2024-11-21 14:04 | XMS_ITS | Encounter Summary ---
Author Organization [facility] Address [address] [place] [address] Care Team Providers Care Beveling Machine Operator Name Role Phone Maggie Franz MD Primary Care Provider [facility] Primary Care Provider Unavailabl e Maggie Franz MD Primary Care Provider [phone] [facility], Pcp Primary Care Provider Unavailabl e Reason for Visit * Reason Onset Date Comments Faxed Order 05/07/2021 Encounter Details Date Type Department Care Team Description 05/07/2021 Telephone Adult Medicine [address] [phone] Maggie Franz MD [address] [place] [address] [phone] Faxed Order Social History Tobacco Use Types Packs/Day Years [...] encounter Miscellaneous Notes * Telephone Encounter - Afshan Mcqueen - 06/02/2021 12:34 PM EDT Faxed order received [facility] * Telephone Encounter - Afshan Mcqueen - 05/30/2021 12:38 PM EDT Faxed order received [facility] * Telephone Encounter - Afshan Mcqueen - 05/30/2021 9:24 AM EDT Faxed order received * Telephone Encounter - Archana Manley - 05/20/2021 10:51 AM EDT Fax orders from [facility], please sign and fax back. * Telephone Encounter - Zari Ray - 05/08/2021 8:47 AM EDT Fax orders from [facility], please sign and fax back. * Telephone Encounter - Talia Whipple - 05/07/2021 9:26 AM EDT Fax orders from [facility], please sign and fax back. * Telephone Encounter - Zari Ray - 05/07/2021 8:59 AM EDT Faxed order received from [facility]. Please sign, date and fax. documented in this encounter Plan of Treatment Not on file documented as of this encounter Visit Diagnoses Not on filedocumented in this encounter Care Teams Beveling Machine Operator Relationship Specialty Start Date End Date Maggie Franz MD [address] [place] [address] [phone] PCP - General 02/14/04 11/09/21 [facility]cp [address] [place], [place] [phone] PCP - General Internal Medicine 11/10/21 01/18/22 Maggie Franz MD [address] [place] [address] PCP - General Internal Medicine 01/19/22 02/18/22 [facility], Pcp [address] [place] [address] PCP - General Internal Medicine 02/19/22 documented as of this encounter
--- OUTSIDE RECORDS SUMMARY | 2024-11-21 14:05 | XMS_ITS | Encounter Summary ---
Author Organization [facility] Address [address] [place] [address] Care Team Providers Care Quality Control Inspector Heading Name Role Phone Maggie Franz MD Primary Care Provider [phone] [facility], Pcp Primary Care Provider Maggie Combs MD Primary Care Provider [phone] [facility], Pcp Primary Care Provider Unavailluciano e Encounter Details Date Type Department Care Team Description 06/11/2015 Release of Information Medical Records [address] [place] [address]758 Abstract, Provider Social History Tobacco Use Types [...] on filedocumented in this encounter Care Teams Quality Control Inspector Heading Relationship Specialty Start Date End Date Maggie Franz MD [address] [place] [address] 17234 PCP - General 02/14/04 11/09/21 [facility], Pcp [address] [place] [address] 89089 PCP - General Internal Medicine 11/10/21 01/18/22 Maggie Franz MD [address] [place] [address] 21826 PCP - General Internal Medicine 01/19/22 02/18/22 [facility], Pcp [address] [place] [address] PCP - General Internal Medicine 02/19/22 documented as of this encounter
--- OUTSIDE RECORDS SUMMARY | 2024-11-21 14:05 | XMS_ITS | Encounter Summary ---
Author Organization [facility] Address [address] [place] [address] Care Team Providers Care Fish Packer Name Role Phone Maggie Franz MD Primary Care Provider [phone] [facility], Pcp Primary Care Provider Unavailluciano e Maggie Franz MD Primary Care Provider [phone] [facility], Pcp Primary Care Provider Unavailabl e Encounter Details Date Type Department Care Team Description 05/18/2019 Cognos Architect Report Medical Records [address] [place] [address] 569[address] Mac Manriquez MD Social History Tobacco Use Types Packs/Day [...] on filedocumented in this encounter Care Teams Fish Packer Relationship Specialty Start Date End Date Maggie Franz MD [address] [place] [address]30[address] PCP - General 02/14/04 11/09/21 [facility], Pcp [address] [place] [address] 37261 PCP - General Internal Medicine 11/10/21 01/18/22 Maggie Franz MD [address] [place] [address] [phone] PCP - General Internal Medicine 01/19/22 02/18/22 [facility], Pcp [address] [place] [address] PCP - General Internal Medicine 02/19/22 documented as of this encounter
--- OUTSIDE RECORDS SUMMARY | 2024-11-21 14:05 | XMS_ITS | Encounter Summary ---
Author Organization [facility] Address [address] [place] [address] Care Team Providers Care Head Of Sales And Marketing Name Role Phone Maggie Franz MD Primary Care Provider [phone] [facility], Pcp Primary Care Provider [facility] Maggie Franz MD Primary Care Provider [phone] [facility], Pcp Primary Care Provider Unavailabl e Encounter Details Date Type Department Care Team Description 11/07/2012 Hospital Medical Records [address] [place] [address] Noy Altamirano MD [address] [place] [phone] Social History Tobacco Use Types Packs/Day Years [...] on filedocumented in this encounter Care Teams Head Of Sales And Marketing Relationship Specialty Start Date End Date Maggie Franz MD [address] [place], [place] [phone] PCP - General 02/14/04 11/09/21 [facility], Pcp [address] [place] [address] 26758 PCP - General Internal Medicine 11/10/21 01/18/22 Maggie Franz MD [address] [place] [address] PCP - General Internal Medicine 01/19/22 02/18/22 [facility], Pcp [address] [place] [address] 31320 PCP - General Internal Medicine 02/19/22 documented as of this encounter
--- OUTSIDE RECORDS SUMMARY | 2024-11-21 14:05 | XMS_ITS | Encounter Summary ---
Author Organization [facility] Address [address] [place] [address] Care Team Providers Care Scallop Shucker Name Role Phone Mgagie Franz MD Primary Care Provider [phone] [facility], Pcp Primary Care Provider [facility] Maggie Franz MD Primary Care Provider [phone] [facility], Pcp Primary Care Provider Unavailabl e Encounter Details Date Type Department Care Team Description 12/03/2017 Cyber Forensic Specialist Report Medical Records [address] [place] [address] Prudencio Rascon MD [address] [place] [address] [id number] Social History Tobacco Use Types Packs/Day Years [...] on filedocumented in this encounter Care Teams Scallop Shucker Relationship Specialty Start Date End Date Maggie Franz MD [address] [place] [address] PCP - General 02/14/04 11/09/21 [facility], Pcp [address] [place] [address] PCP - General Internal Medicine 11/10/21 01/18/22 Maggie Franz MD [address] [place] [address] 455[address] PCP - General Internal Medicine 01/19/22 02/18/22 [facility], Pcp [address] [place] [address] PCP - General Internal Medicine 02/19/22 documented as of this encounter
--- OUTSIDE RECORDS SUMMARY | 2024-11-21 14:05 | XMS_ITS | Encounter Summary ---
Author Organization [facility] Address [address] [place] [address] Care Team Providers Care Painter Assistant Name Role Phone Maggie Franz MD Primary Care Provider [phone] [facility], Pcp Primary Care Provider Unavailabl e Maggie Franz MD Primary Care Provider [phone] [facility], Pcp Primary Care Provider Unavailabl e Reason for Visit * Reason Onset Date Comments Prior Authorization 11/02/2019 Encounter Details Date Type Department Care Team Description 11/02/2019 Telephone Adult Medicine - [place] [address] [place] [address] Maggie Franz MD [address] [place] [address] 26[address] Prior Authorization Social History Tobacco Use Types Packs/Day Years [...] encounter Miscellaneous Notes * Telephone Encounter - Nicol Lopez M.A. - 11/06/2019 12:17 PM EST Prior authorization for the hydroxyzine is approved Approved from 08/04/19 until 11/01/2020 Approval faxed to [facility] at [phone] * Telephone Encounter - Nicol Lopez M.A. - 11/02/2019 2:57 PM EST Prior authorization completed on cover my meds for the hydroxyzine tablets today Dx code L20.82 Flexural eczema * Telephone Encounter - Maral Wing M.A. - 11/02/2019 7:54 AM EST Prior authorization faxed to department GUEVARA CODE: [id number] documented in this encounter Plan of Treatment Not on file documented as of this encounter Visit Diagnoses Not on filedocumented in this encounter Care Teams Painter Assistant Relationship Specialty Start Date End Date Maggie Franz MD [address] [place] [address] PCP - General 02/14/04 11/09/21 [facility], Pcp [address] [place] [address] PCP - General Internal Medicine 11/10/21 01/18/22 Maggie Franz MD [address] [place] [address] PCP - General Internal Medicine 01/19/22 02/18/22 [facility], Pcp [address] [place] [address] PCP - General Internal Medicine 02/19/22 documented as of this encounter
--- OUTSIDE RECORDS SUMMARY | 2024-11-21 14:05 | XMS_ITS | Encounter Summary ---
Author Organization [facility] Address [address] [place] [address] Care Team Providers Care Sports Medicine Trainer Name Role Phone Maggie Franz MD Primary Care Provider [phone] [facility], Pcp Primary Care Provider Unavailabl e Maggie Franz MD Primary Care Provider [phone] [facility], Pcp Primary Care Provider Unavailabl e Reason for Visit * Reason Onset Date Comments Anticoagulation 10/03/2019 EGD & Colonoscop y 11/14/19 Dr James [facility] Encounter Details Date Type Department Care Team Description 10/03/2019 Telephone Gastroenterology - [address] [place] [address] Briana James MD [address] [place] [address] Anticoagulation (EGD & Colonoscopy 11/14/19 Dr James [facility]) Social History Tobacco Use Types Packs/Day Years [...] encounter Miscellaneous Notes * Telephone Encounter - Clare Cruz L.P.N. - 10/17/2019 10:15 AM EST Called patient his phone just kept ringing then hung up. I sent him a letter with instructions to hold Plavix for 7 days prior to EGD & Colonoscopy./dg * Telephone Encounter - Maggie Franz MD - 10/16/2019 12:08 PM EST Ok to hold plavix 7 days preprocedure * Telephone Encounter - Clare BaumannP.N. - 10/16/2019 11:19 AM EST EGD & Colonoscopy with Dr James Wednesday11/14/2019 @ [facility]. Please determine if patient may hold Plavix for 7 days prior to procedures. Please advise./dg * Telephone Encounter - Clare Jaramillo.P.N. - 10/03/2019 9:56 AM EST EGD & Colonoscopy Wednesday11/14/19 @ 10:00 AM W/ Dr James [facility]. Patient on Plavix./dg documented in this encounter Plan of Treatment Not on file documented as of this encounter Visit Diagnoses Not on filedocumented in this encounter Care Teams Sports Medicine Trainer Relationship Specialty Start Date End Date Maggie Franz MD [address] [place] [address] 15164 PCP - General 02/14/04 11/09/21 [facility], Pcp [address] [place] [address] 16258 PCP - General Internal Medicine 11/10/21 01/18/22 Maggie Franz MD [address] [place] [address] 04836 PCP - General Internal Medicine 01/19/22 02/18/22 [facility], Pcp [address] [place] [address] 48076 PCP - General Internal Medicine 02/19/22 documented as of this encounter
--- OUTSIDE RECORDS SUMMARY | 2024-11-21 14:05 | XMS_ITS | Clinical Summary ---
Author Organization [facility] Address [address] [place] [address] Care Team Providers Care Industrial Insulator Name Role Phone Maggie Franz MD Primary Care Provider [phone] Medications acetaminophen (TYLENOL) 325 MG tablet Take [...] 12/06/2017 Influenza Vaccine (#1) 2024 Insurance MEDICARE [facility] MEDICARE [facility] Care Teams Industrial Insulator Relationship Specialty Start Date End Date Maggie Franz MD PCP - General 10/14/20
--- OUTSIDE RECORDS SUMMARY | 2024-11-21 14:05 | XMS_ITS | Encounter Summary ---
Author Organization [facility] Address [address] [place] [address] Care Team Providers Care District Fire Management Officer Name Role Phone Maggie Franz MD Primary Care Provider [phone] [facility], Pcp Primary Care Provider UnavailMaggie Carson MD Primary Care Provider [phone] [facility], Pcp Primary Care Provider Unavailluciano e Encounter Details Date Type Department Care Team Description 06/16/2017 Plier Worker Report Medical Records [address] [place] [address]35 Palomo Ordoñez MD Social History Tobacco Use Types Packs/Day [...] on filedocumented in this encounter Care Teams District Fire Management Officer Relationship Specialty Start Date End Date Maggie Franz MD [address] [place] [address] PCP - General 02/14/04 11/09/21 [facility], Pcp [address] [place] [address] 66100 PCP - General Internal Medicine 11/10/21 01/18/22 Maggie Franz MD [address] [place] [address] [phone] PCP - General Internal Medicine 01/19/22 02/18/22 [facility], Pcp [address] [place] [address] PCP - General Internal Medicine 02/19/22 documented as of this encounter
--- OUTSIDE RECORDS SUMMARY | 2024-11-21 14:05 | XMS_ITS | Encounter Summary ---
Author Organization [facility] Address [address] [place] [address] Care Team Providers Care Extractions Technician Name Role Phone Maggie Franz MD Primary Care Provider [phone] [facility], Pcp Primary Care Provider UnavailMaggie Carson MD Primary Care Provider [phone] [facility], Pcp Primary Care Provider Unavailabl e Encounter Details Date Type Department Care Team Description 07/26/2019 Sprinkler Fitter Apprentice Report Medical Records [address] [place] [address] Rome Saleem MD Social History Tobacco Use [...] on filedocumented in this encounter Care Teams Extractions Technician Relationship Specialty Start Date End Date Maggie Franz MD [address] [place] [address] 65665 PCP - General 02/14/04 11/09/21 [facility], Pcp [address] [place] [address] 69881 PCP - General Internal Medicine 11/10/21 01/18/22 Maggie Franz MD [address] [place] [address] [phone] PCP - General Internal Medicine 01/19/22 02/18/22 [facility], Pcp [address] [place] [address] PCP - General Internal Medicine 02/19/22 documented as of this encounter
--- OUTSIDE RECORDS SUMMARY | 2024-11-21 14:05 | XMS_ITS | Encounter Summary ---
Author Organization [facility] Address [address] [place] [address] Care Team Providers Care Batting Machine Operator Insulation Name Role Phone Maggie Franz MD Primary Care Provider [phone] [facility], Pcp Primary Care Provider [facility] e Maggie Franz MD Primary Care Provider [phone] [facility], Pcp Primary Care Provider Unavailabl e Encounter Details Date Type Department Care Team Description 11/10/2012 Hospital Medical Records [address] [place] [address] 92498 Noy Altamirano MD [address] [place] [phone] Social History Tobacco Use Types Packs/Day [...] on filedocumented in this encounter Care Teams Batting Machine Operator Insulation Relationship Specialty Start Date End Date Maggie Franz MD [address] [place], [place] [phone] PCP - General 02/14/04 11/09/21 [facility], Pcp [address] [place] [address] 48562 PCP - General Internal Medicine 11/10/21 01/18/22 Maggie Franz MD [address] [place] [address] PCP - General Internal Medicine 01/19/22 02/18/22 [facility], Pcp [address] [place] [address] 44364 PCP - General Internal Medicine 02/19/22 documented as of this encounter
--- OUTSIDE RECORDS SUMMARY | 2024-11-21 14:05 | XMS_ITS | Encounter Summary ---
Author Organization [facility] Address [address] [place] [address] Care Team Providers Care International Marketing Intern Name Role Phone Maggie Franz MD Primary Care Provider [phone] [facility], Pcp Primary Care Provider Unavailabl e Maggie Franz MD Primary Care Provider [phone] [facility], Pcp Primary Care Provider Unavailabl e Reason for Visit * Reason Onset Date Comments Provider Call Back 12/25/2015 Encounter Details Date Type Department Care Team Description 12/25/2015 Telephone Adult Medicine [address] [address] Maggie Franz MD [address] [place] [address] Provider Call Back Social History Tobacco Use [...] encounter Miscellaneous Notes * Telephone Encounter - Maggie Franz MD - 12/25/2015 10:20 AM EDT Referral was sent to ; I doubt the appt will be in that time frame * Telephone Encounter - Catherine Álvarez M.A. - 12/25/2015 9:32 AM EDT Fyi to pcp. * Telephone Encounter - Blanca Philippe - 12/25/2015 8:20 AM EDT Caller requesting call back from provider: Is the caller the patient? YES If caller is not the patient, what is the callers name? N/A Callers relationship to patient? N/A If person calling is not the patient themselves, is there a verbal release in FYI or permanent comments for this person: NO Reason for call back: Patient is calling in due to just speaking with Dr. Franz. He forgot to inform her that he is going to be going out of town for 19 days starting on 01/11/16. He wants her to know this so that when she is scheduling his appointments that they discussed. Caller offered to speak with the nurse for assistance: YES Response: Patient offered to speak with nurse to assist them: refused offer documented in this encounter Plan of Treatment Not on file documented as of this encounter Visit Diagnoses Not on filedocumented in this encounter Care Teams International Marketing Intern Relationship Specialty Start Date End Date Maggie Franz MD [address] [place] [address] PCP - General 02/14/04 11/09/21 [facility], Pcp [address] [place] [address] 15545 PCP - General Internal Medicine 11/10/21 01/18/22 Maggie Franz MD [address] [place] [address] 16857 PCP - General Internal Medicine 01/19/22 02/18/22 [facility], Pcp [address] [place] [address] 56735 PCP - General Internal Medicine 02/19/22 documented as of this encounter
--- OUTSIDE RECORDS SUMMARY | 2024-11-21 14:05 | XMS_ITS | Encounter Summary ---
Author Organization [facility] Address [address] [place] [address] Care Team Providers Care Red Hat Engineer Name Role Phone Maggie Franz MD Primary Care Provider [phone] [facility], Pcp Primary Care Provider UnavailMaggie Carson MD Primary Care Provider [phone] [facility], Pcp Primary Care Provider Unavailluciano e Encounter Details Date Type Department Care Team Description 12/06/2017 Hospital Medical Records [address] [place] [address] Akin Unger MD Social History Tobacco Use Types Packs/Day [...] on filedocumented in this encounter Care Teams Red Hat Engineer Relationship Specialty Start Date End Date Maggie Franz MD [address] [place] [address]10 PCP - General 02/14/04 11/09/21 [facility], Pcp [address] [place] [address] 93266 PCP - General Internal Medicine 11/10/21 01/18/22 Maggie Franz MD [address] [place] [address] 83534 PCP - General Internal Medicine 01/19/22 02/18/22 [facility], Pcp [address] [place] [address] PCP - General Internal Medicine 02/19/22 documented as of this encounter
--- OUTSIDE RECORDS SUMMARY | 2024-11-21 14:05 | XMS_ITS | Encounter Summary ---
Author Organization [facility] Address [address] [place] [address] Care Team Providers Care Business Area Manager Name Role Phone Maggie Franz MD Primary Care Provider [phone] [facility], Pcp Primary Care Provider Unavailabl e Maggie Franz MD Primary Care Provider [phone] [facility], Pcp Primary Care Provider Unavailabl e Reason for Visit * Reason Comments E-prescribe Rx Request Encounter Details Date Type Department Care Team Description 12/24/2016 Refill Adult Medicine [address] [address] Maggie Franz MD [address] [place] [address] E-prescribe Rx Request Social History Tobacco Use Types Packs/Day Years [...] Telephone Encounter - Maggie Franz MD - 12/24/2016 9:42 AM EDT He needs to be seen before will refill * Telephone Encounter - Apple Hameed - 12/24/2016 9:06 AM EDT Patient would like script to be: E-PRESCRIBED/FAXED TO PHARMACY WHEN WAS THE PATIENT'S LAST APPOINTMENT IN ADULT MEDICINE? 06/10/16 WHEN WAS THE LAST TIME THE PATIENT SAW THEIR PCP? Same as above Does patient have an upcoming appointment? No-unable to reach left voicemaill to call for appointment due to refill request. Appt due Now (THE MEDICATION REQUESTED IS ON THE MED LIST ABOVE) All of the medications requested were on the CURRENT MEDS list Did you check the Pharmacy information above?: YES Patient wants: 30 -day supply Is this a mail order prescription request ? NO Patients current insurance carrier is: Payor: [facility] FFS / [facility] $15/$35 SENIOR / Product Type: MEDICARE [id number] documented in this encounter Plan of Treatment Not on file documented as of this encounter Visit Diagnoses Not on filedocumented in this encounter Care Teams Business Area Manager Relationship Specialty Start Date End Date Maggie Franz MD [address] [place], [place] [phone] PCP - General 02/14/04 11/09/21 [facility], Pcp [address] [place] [address] PCP - General Internal Medicine 11/10/21 01/18/22 Maggie Franz MD [address] [place] [address]256 PCP - General Internal Medicine 01/19/22 02/18/22 [facility], Pcp [address] [place] [address] PCP - General Internal Medicine 02/19/22 documented as of this encounter
--- OUTSIDE RECORDS SUMMARY | 2024-11-21 14:05 | XMS_ITS ---
Author Organization [facility] Address [address] [place] [address] Care Team Providers Care Copier And Printer Field Technician Name Role Phone ALYSIA FELTON Primary Care Provider [phone] ALYSIA FELTON Unavailable [phone] PAULINE CASTRO Unavailable [phone] Results Component Value Reference Range Notes CBC WITH AUTO DIFF Reviewed date:09/14/2023 06:06:35 PM Interpretation: Performing Lab: Notes/Report: Original Ordering Provider: PAULINE CASTRO MD [employer], a member of [address] [address] Dairy Truck Driver - Jada Lu MD WBC 11.3 4.8-10.8 [...] date:09/14/2023 06:06:35 PM Interpretation: Performing Lab: Notes/Report: [employer], [place] [address] Dairy Truck Driver - Jada Lu MD CHOLESTEROL 145 0-200 mg/dL TRIGLYCERIDES 207 0-150 mg/dL HDL CHOLESTEROL 49 >40 mg/dL LDL CALCULATED 55 0-100 mg/dL TC-HDLC RATIO 3.0 0-4.4 mg/dL URINALYSIS Reviewed date:09/14/2023 06:06:35 PM Interpretation: Performing Lab: Notes/Report: Original Ordering Provider: PAULINE CASTRO MD [employer] [address] Dairy Truck Driver - Jada Lu MD GLUCOSE, (UA) NEGATIVE [...] Orders Encounters Encounter Location Date Provider Diagnosis [address] [place] [address] 09/13/2023 PAULINE CASTRO Iron deficiency anem ia, [...] Notes * Arnel MARTINEZDOB:1940 (82 yo M)Acc No.[id number]:09/13/2023 Patient:?Arnel Martinez :1940???Age:82 Y???Sex:Male Address:[address] [place] [address], [address] Subjective: * Chief Complaints: * ???Request For [...] true * Date:? Generated for Magaly marmolejo/Bebeto/eTransmitting on:?11/21/2024 02:05 PM EST
--- OUTSIDE RECORDS SUMMARY | 2024-11-21 14:05 | XMS_ITS | Encounter Summary ---
Author Organization [facility] Address [address] [place] [address] Care Team Providers Care Fiber Product Cutting Machine Operator Name Role Phone Maggie Franz MD Primary Care Provider [phone] [facility], Pcp Primary Care Provider [facility] Maggie Franz MD Primary Care Provider [phone] [facility], Pcp Primary Care Provider [facility] e Encounter Details Date Type Department Care Team Description 01/21/2016 Telephone Gastroenterology - [address] [address] Giacomo Oconnor MD Social History Tobacco Use Types Packs/Day [...] on filedocumented in this encounter Care Teams Fiber Product Cutting Machine Operator Relationship Specialty Start Date End Date Maggie Franz MD [address] [place] [address] PCP - General 02/14/04 11/09/21 [facility], Pcp [address] [place] [address] PCP - General Internal Medicine 11/10/21 01/18/22 Maggie Franz MD [address] [place] [address] [phone] PCP - General Internal Medicine 01/19/22 02/18/22 [facility], Pcp [address] [place] [address] PCP - General Internal Medicine 02/19/22 documented as of this encounter
--- OUTSIDE RECORDS SUMMARY | 2024-11-21 14:05 | XMS_ITS | Encounter Summary ---
Author Organization [facility] Address [address] [place] [address] Care Team Providers Care Manager Cleaning Name Role Phone Maggie Franz MD Primary Care Provider [phone] [facility], Pcp Primary Care Provider Maggie Combs MD Primary Care Provider [phone] [facility], Pcp Primary Care Provider Unavailluciano e Encounter Details Date Type Department Care Team Description 04/12/2015 Business Doc Medical Records [address] [place] [address] 91699 Abstract, Provider Social History Tobacco Use Types [...] on filedocumented in this encounter Care Teams Manager Cleaning Relationship Specialty Start Date End Date Maggie Franz MD [address] [place] [address] 78009 PCP - General 02/14/04 11/09/21 [facility], Pcp [address] [place] [address] 35812 PCP - General Internal Medicine 11/10/21 01/18/22 Maggie Franz MD [address] [place] [address] 93351 PCP - General Internal Medicine 01/19/22 02/18/22 [facility], Pcp [address] [place] [address] PCP - General Internal Medicine 02/19/22 documented as of this encounter
--- OUTSIDE RECORDS SUMMARY | 2024-11-21 14:05 | XMS_ITS | Encounter Summary ---
Author Organization [facility] Address [address] [place] [address] Care Team Providers Care Maintenance Painter Apprentice Name Role Phone Maggie Franz MD Primary Care Provider [phone] [facility], Pcp Primary Care Provider Unavailabl e Maggie Franz MD Primary Care Provider [phone] [facility], Pcp Primary Care Provider Unavailabl e Reason for Visit * Reason Onset Date Comments refill request 01/23/2019 Encounter Details Date Type Department Care Team Description 01/23/2019 Refill Adult Medicine [address] [id number] Maggie Franz MD [address] [place] [address] [phone] refill request Social History Tobacco Use Types Packs/Day Years [...] encounter Miscellaneous Notes * Telephone Encounter - Stephani Ortizjay - 01/23/2019 10:00 AM EDT Patient would like script to be: E-PRESCRIBED/FAXED TO PHARMACY WHEN WAS THE PATIENT'S LAST APPOINTMENT IN ADULT MEDICINE? 10/06/2018 WHEN WAS THE LAST TIME THE PATIENT SAW THEIR PCP? Same as above Does patient have an upcoming appointment? Yes 03/06/2019 (THE MEDICATION REQUESTED IS ON THE MED LIST ABOVE) All of the medications requested were on the CURRENT MEDS list Did you check the Pharmacy information above?: YES Patient wants: 90 -day supply Is this a mail order prescription request ? YES If the refill is from a FAXED refill request what is the RX # listed on the fax? N/A Patients current insurance carrier is: Payor: MEDICARE-[employer] / Plan: MEDICARE-[employer] / Product Type: MEDICARE [id number] documented in this encounter Plan of Treatment Not on file documented as of this encounter Visit Diagnoses Not on filedocumented in this encounter Care Teams Maintenance Painter Apprentice Relationship Specialty Start Date End Date Maggie Franz MD [address] [place] [address] PCP - General 02/14/04 11/09/21 [facility], Pcp [address] [place] [address] 42731 PCP - General Internal Medicine 11/10/21 01/18/22 Maggie Franz MD [address] [place] [address] PCP - General Internal Medicine 01/19/22 02/18/22 [facility], Pcp [address] [place] [address] 54290 PCP - General Internal Medicine 02/19/22 documented as of this encounter
--- OUTSIDE RECORDS SUMMARY | 2024-11-21 14:05 | XMS_ITS | Encounter Summary ---
Author Organization [facility] Address [address] [place] [address] Care Team Providers Care Hand Striper Name Role Phone Maggie Franz MD Primary Care Provider [phone] [facility], Pcp Primary Care Provider Maggie Combs MD Primary Care Provider [phone] [facility], Pcp Primary Care Provider Unavailluciano lee Encounter Details Date Type Department Care Team Description 12/13/2017 Hospital Medical Records [address] [place], [place] [phone] Social History Tobacco Use Types Packs/Day Years [...] on filedocumented in this encounter Care Teams Hand Striper Relationship Specialty Start Date End Date Maggie Franz MD [address] [place] [address] 61596 PCP - General 02/14/04 11/09/21 [facility], Pcp [address] [place] [address] 24656 PCP - General Internal Medicine 11/10/21 01/18/22 Maggie Franz MD [address] [place] [address] PCP - General Internal Medicine 01/19/22 02/18/22 [facility], Pcp [address] [place] [address] PCP - General Internal Medicine 02/19/22 documented as of this encounter
--- OUTSIDE RECORDS SUMMARY | 2024-11-21 14:05 | XMS_ITS | Encounter Summary ---
Author Organization [facility] Address [address] [place] [address] Care Team Providers Care Contract Associate Manager Name Role Phone Maggie Franz MD Primary Care Provider [phone] [facility], Pcp Primary Care Provider Maggie Combs MD Primary Care Provider [phone] [facility], Pcp Primary Care Provider Unavailluciano lee Encounter Details Date Type Department Care Team Description 12/07/2017 Hospital Medical Records [address] [place], [place] [phone] Social History Tobacco Use Types Packs/Day Years [...] on filedocumented in this encounter Care Teams Contract Associate Manager Relationship Specialty Start Date End Date Maggie Franz MD [address] [place] [address] 52073 PCP - General 02/14/04 11/09/21 [facility], Pcp [address] [place] [address] 10751 PCP - General Internal Medicine 11/10/21 01/18/22 Maggie Franz MD [address] [place] [address] PCP - General Internal Medicine 01/19/22 02/18/22 [facility], Pcp [address] [place] [address] PCP - General Internal Medicine 02/19/22 documented as of this encounter
--- OUTSIDE RECORDS SUMMARY | 2024-11-21 14:05 | XMS_ITS | Encounter Summary ---
Author Organization [facility] Address [address] [place] [address] Care Team Providers Care Quantometer Operator Name Role Phone Maggie Franz MD Primary Care Provider [phone] [facility], Pcp [facility] Maggie Franz MD Primary Care Provider [phone] [facility], Pcp Primary Care Provider Unavailabl e Encounter Details Date Type Department Care Team Description 12/02/2017 Hospital Medical Records [address] [place] [address] 60[address] Prudencio Rascon MD [address] [place] [address] [phone] Social History Tobacco Use Types Packs/Day Years [...] on filedocumented in this encounter Care Teams Quantometer Operator Relationship Specialty Start Date End Date Maggie Franz MD [address] [place] [address] [phone] PCP - General 02/14/04 11/09/21 [facility], Pcp [address] [place] [address] 41425 PCP - General Internal Medicine 11/10/21 01/18/22 Maggie Franz MD [address] [place] [address] 86940 PCP - General Internal Medicine 01/19/22 02/18/22 [facility], Pcp [address] [place] [address] 50840 PCP - General Internal Medicine 02/19/22 documented as of this encounter
--- OUTSIDE RECORDS SUMMARY | 2024-11-21 14:05 | XMS_ITS ---
Author Organization [facility] Address [address] [facility] [address] [place] [address] Care Team Providers Care Orchestra Conductor Name Role Phone ALYSIA FELTON Primary Care Provider ALYSIA FELTON Unavailable [phone] REASON FOR VISIT refill Medications Medication SIG (Take, Route, Fr equency, Duration) Notes Start Date End Date Status Torsemide 10 MG Take 3 tabs Orally O nce a day for 90 days Active Encounters Encounter Location Date Provider Diagnosis [facility] [address] [facility] [address] [place] [address] 09/21/2023 ALYSIA FELTON Plan Of Treatment Medication Medication Name Sig Start Date Stop Date Notes Torsemide 10 MG Take 3 tabs Orally Once a day for 90 days Progress Notes * Arnel MARTINEZDOB:1940 (82 yo M)Acc No.[id number]:09/21/2023 Patient:?Lilian Arnel :1940???Age:82 Y???Sex:Male Address:[address] [facility] [place], [address] * Refills? Refill Torsemide Tablet, 10 MG, Orally, 270, Take 3 tabs, Once a day, 90 days, Refills=2 * true * Date:? Generated for Printi ng/Faxing/eTransmitting on:?11/21/2024 02:05 PM EST
--- OUTSIDE RECORDS SUMMARY | 2024-11-21 14:05 | XMS_ITS | Encounter Summary ---
Author Organization [facility] Address [address] [place] [address] Care Team Providers Care Want Ad Supervisor Name Role Phone Maggie Franz MD Primary Care Provider [phone] [facility], Pcp Primary Care Provider UnavailMaggie Carson MD Primary Care Provider [phone] [facility], Pcp Primary Care Provider Unavailluciano e Encounter Details Date Type Department Care Team Description 07/25/2019 Old Medical Records Medical Records [address] [place] [address] 25334 Abstract, Provider Social History Tobacco Use Types [...] on filedocumented in this encounter Care Teams Want Ad Supervisor Relationship Specialty Start Date End Date Maggie Franz MD [address] [place] [address] 47786 PCP - General 02/14/04 11/09/21 [facility], Pcp [address] [place] [address] 16029 PCP - General Internal Medicine 11/10/21 01/18/22 Maggie Franz MD [address] [place] [address] 87591 PCP - General Internal Medicine 01/19/22 02/18/22 [facility], Pcp [address] [place] [address] PCP - General Internal Medicine 02/19/22 documented as of this encounter
--- OUTSIDE RECORDS SUMMARY | 2024-11-21 14:05 | XMS_ITS | Encounter Summary ---
Author Organization [facility] Address [address] [place] [address] Care Team Providers Care Cashier And Waiter/Waitress Name Role Phone Maggie Franz MD Primary Care Provider [phone] [facility], Pcp Primary Care Provider Maggie Combs MD Primary Care Provider [phone] [facility], Pcp Primary Care Provider Unavailluciano lee Encounter Details Date Type Department Care Team Description 08/16/2016 [facility]AN Medical Records [address] [place] [address] 40545 Abstract, Provider Social History Tobacco Use Types [...] on filedocumented in this encounter Care Teams Cashier And Waiter/Waitress Relationship Specialty Start Date End Date Maggie Franz MD [address] [place] [address] 96653 PCP - General 02/14/04 11/09/21 [facility], Pcp [address] [place] [address] 34192 PCP - General Internal Medicine 11/10/21 01/18/22 Maggie Franz MD [address] [place] [address] 68093 PCP - General Internal Medicine 01/19/22 02/18/22 [facility], Pcp [address] [place] [address] PCP - General Internal Medicine 02/19/22 documented as of this encounter
--- OUTSIDE RECORDS SUMMARY | 2024-11-21 14:05 | XMS_ITS | Encounter Summary ---
Author Organization [facility] Address [address] [place] [address] Care Team Providers Care Soil Conservation Technician Name Role Phone Maggie Franz MD Primary Care Provider [phone] [facility], Pcp Primary Care Provider UnavailMaggie Carson MD Primary Care Provider [phone] [facility], Pcp Primary Care Provider Unavailluciano e Encounter Details Date Type Department Care Team Description 01/05/2018 Client Delivery Specialist Report Medical Records [address] [place] [address] 42345 Diogo Morgan DO Social History Tobacco Use Types Packs/Day Years [...] on filedocumented in this encounter Care Teams Soil Conservation Technician Relationship Specialty Start Date End Date Maggie Franz MD [address] [place] [address] 54276 PCP - General 02/14/04 11/09/21 [facility], Pcp [address] [place] [address] 12554 PCP - General Internal Medicine 11/10/21 01/18/22 Maggie Franz MD [address] [place] [address] 38525 PCP - General Internal Medicine 01/19/22 02/18/22 [facility], Pcp [address] [place] [address] PCP - General Internal Medicine 02/19/22 documented as of this encounter
--- OUTSIDE RECORDS SUMMARY | 2024-11-21 14:06 | XMS_ITS | Encounter Summary ---
Author Organization [facility] Address [address] [place] [address] Care Team Providers Care Call Center Analyst Name Role Phone Maggie Franz MD Primary Care Provider [phone] [facility], Pcp [facility] Maggie Garcia MD Primary Care Provider [phone] [facility], Pcp Primary Care Provider Unavailabl e Encounter Details Date Type Department Care Team Description 12/27/2019 Headend Technician Report Medical Records [address] [place] [address]99[address] Rome Saleem MD Social History Tobacco Use [...] on filedocumented in this encounter Care Teams Call Center Analyst Relationship Specialty Start Date End Date Maggie Franz MD [address] [place] [address] 80038 PCP - General 02/14/04 11/09/21 [facility], Pcp [address] [place] [address] 05752 PCP - General Internal Medicine 11/10/21 01/18/22 Maggie Franz MD [address] [place] [address] [phone] PCP - General Internal Medicine 01/19/22 02/18/22 [facility], Pcp [address] [place] [address] PCP - General Internal Medicine 02/19/22 documented as of this encounter
--- OUTSIDE RECORDS SUMMARY | 2024-11-21 14:06 | XMS_ITS | Encounter Summary ---
Author Organization [facility] Address [address] [place] [address] Care Team Providers Care Toe Puncher Name Role Phone Maggie Franz MD Primary Care Provider [phone] [facility], Pcp Primary Care Provider Unavailabl e Maggie Franz MD Primary Care Provider [phone] [facility], Pcp Primary Care Provider Unavailabl e Reason for Visit * Reason Comments E-prescribe Rx Request Encounter Details Date Type Department Care Team Description 06/17/2020 Refill Adult Medicine [address] [address] Maggie Franz MD [address] [place] [address] [phone] E-prescribe Rx Request Social History Tobacco Use [...] encounter Miscellaneous Notes * Telephone Encounter - Danette Wbeb C.M.A. - 07/04/2020 1:32 PM EDT Message left for patient to return my call, needs Nov appt for refills on Plavix * Telephone Encounter - Ivelisse Kemp PA-C - 06/20/2020 12:42 PM EDT Will await patient response. Ivelisse Kemp PA-C * Telephone Encounter - Sera Puente - 06/19/2020 2:28 PM EDT Wilmer 02/14/20 Voicemail left needs office visit Lab Results Component Value Date NA 139 02/15/2020 K 5.3 02/15/2020 CO2 30 02/15/2020 CL 104 02/15/2020 BUN 24 02/15/2020 CREAT 1.30 02/15/2020 GLU 109 02/15/2020 CA 9.9 02/15/2020 GFR 53 02/15/2020 * Telephone Encounter - Talia Whipple - 06/17/2020 9:55 AM EDT Patient would like script to be: E-PRESCRIBED/FAXED TO PHARMACY ?? WHEN WAS THE PATIENT'S LAST APPOINTMENT IN ADULT MEDICINE? 02/14/20 ?? WHEN WAS THE LAST TIME THE PATIENT SAW THEIR PCP? Same as above ?? Does patient have an upcoming appointment? No-unable to reach left voicemaill to call for appointment due to refill request. Appt due ?? (THE MEDICATION REQUESTED IS ON THE MED LIST ABOVE) All of the medications requested were on the CURRENT MEDS list ?? Did you check the Pharmacy information above?: YES ?? Patient wants: 90 -day supply ?? Is this a mail order prescription request ? YES ?? If the refill is from a FAXED refill request what is the RX # listed on the fax? N/A ?? Patients current insurance carrier is: [place] / [place] / Product Type: MEDICARE [id number] ?? documented in this encounter Plan of Treatment Not on file documented as of this encounter Visit Diagnoses Not on filedocumented in this encounter Care Teams Toe Puncher Relationship Specialty Start Date End Date Maggie Franz MD [address] [place] [address]33 PCP - General 02/14/04 11/09/21 [facility], Pcp [address] [place] [address] 59383 PCP - General Internal Medicine 11/10/21 01/18/22 Maggie Franz MD [address] [place] [address] 43517 PCP - General Internal Medicine 01/19/22 02/18/22 [facility], Pcp [address] [place] [address] 61486 PCP - General Internal Medicine 02/19/22 documented as of this encounter
--- OUTSIDE RECORDS SUMMARY | 2024-11-21 14:06 | XMS_ITS | Encounter Summary ---
Author Organization [facility] Address [address] [place] [address] Care Team Providers Care Mineral Industry Teacher Name Role Phone Maggie Franz MD Primary Care Provider [phone] [facility], Pcp Primary Care Provider UnavailMaggie Carson MD Primary Care Provider [phone] [facility], Pcp Primary Care Provider Unavailluciano e Encounter Details Date Type Department Care Team Description 01/15/2021 Residential Property Manager Report Medical Records [address] [place] [address] 74783 Abstract, Provider Social History Tobacco Use Types [...] have Coronavirus / COVID-19? No / Unsure 01/03/2021 1:56 PM EDT documented as of this encounter Plan of Treatment Not on file documented as of this encounter Visit Diagnoses Not on filedocumented in this encounter Care Teams Mineral Industry Teacher Relationship Specialty Start Date End Date Maggie Franz MD [address] [place] [address] 88103 PCP - General 02/14/04 11/09/21 [facility], Pcp [address] [place] [address] 31721 PCP - General Internal Medicine 11/10/21 01/18/22 Maggie Franz MD [address] [place] [address] 01020 PCP - General Internal Medicine 01/19/22 02/18/22 [facility], Pcp [address] [place] [address] 12023 PCP - General Internal Medicine 02/19/22 documented as of this encounter
--- OUTSIDE RECORDS SUMMARY | 2024-11-21 14:06 | XMS_ITS | Encounter Summary ---
Author Organization [facility] Address [address] [place] [address] Care Team Providers Care Pilot Manager Name Role Phone Maggie rFanz MD Primary Care Provider [phone] Replaced By [facility], Pcp Primary Care Provider UnavailMaggie Carson MD Primary Care Provider [phone] [facility]placed [facility], Pcp Primary Care Provider Unavailluciano e Encounter Details Date Type Department Care Team Description 02/03/2010 Feather Mixer Report Medical Records [address] [place] [address] Surendra Rodriguez MD Social History Tobacco Use Types Packs/Day Years Used Date Smoking Tobacco: Former Cigarettes Q uit: 10/04/1969 Comments:QUIT 1969, Started @ age 16 Alcohol Use Standard Drinks/Week Comments Yes 0 (1 standard drink = 0.6 oz pur e alcohol) [place] daily Sex Assigned at Date Recorded Not on file documented as of this encounter Plan of Treatment Not on file documented as of this encounter Visit Diagnoses Not on filedocumented in this encounter Care Teams Pilot Manager Relationship Specialty Start Date End Date Maggie Franz MD [address] [place] [address] 59925 PCP - General 02/14/04 11/09/21 Replaced By [facility], Pcp [address] [place] [address] 60889 PCP - General Internal Medicine 11/10/21 01/18/22 Maggie Franz MD [address] [place] [address] 24977 PCP - General Internal Medicine 01/19/22 02/18/22 Replaced By [facility], Pcp [address] [place] [address] PCP - General Internal Medicine 02/19/22 documented as of this encounter
--- OUTSIDE RECORDS SUMMARY | 2024-11-21 14:06 | XMS_ITS | Encounter Summary ---
Author Organization [facility] Address [address] [place] [address] Care Team Providers Care State Federal Relations Deputy Director Name Role Phone Maggie Franz MD Primary Care Provider [phone] [facility], Pcp Primary Care Provider Maggie Combs MD Primary Care Provider [phone] [facility], Pcp Primary Care Provider Unavailluciano e Encounter Details Date Type Department Care Team Description 01/01/2021 Bookkeeper Receptionist Report Medical Records [address] [place] [address] 17149 Abstract, Provider Social History Tobacco Use Types [...] on filedocumented in this encounter Care Teams State Federal Relations Deputy Director Relationship Specialty Start Date End Date Maggie Franz MD [address] [place] [address] 08681 PCP - General 02/14/04 11/09/21 [facility], Pcp [address] [place] [address] 90914 PCP - General Internal Medicine 11/10/21 01/18/22 Maggie Franz MD [address] [place] [address] 01020 PCP - General Internal Medicine 01/19/22 02/18/22 [facility], Pcp [address] [place] [address] 77327 PCP - General Internal Medicine 02/19/22 documented as of this encounter
--- OUTSIDE RECORDS SUMMARY | 2024-11-21 14:06 | XMS_ITS | Encounter Summary ---
Author Organization [facility] Address [address] [place] [address] Care Team Providers Care Maintainer Plant Name Role Phone Maggie Franz MD Primary Care Provider [phone] [facility], Pcp Primary Care Provider Maggie Combs MD Primary Care Provider [phone] [facility], Pcp Primary Care Provider Unavailluciano e Encounter Details Date Type Department Care Team Description 02/07/2014 Release of Information Medical Records [address] [place] [address] 72377 Abstract, Provider Social History Tobacco Use Types [...] on filedocumented in this encounter Care Teams Maintainer Plant Relationship Specialty Start Date End Date Maggie Franz MD [address] [place] [address] 45553 PCP - General 02/14/04 11/09/21 [facility], Pcp [address] [place] [address] 28499 PCP - General Internal Medicine 11/10/21 01/18/22 Maggie Franz MD [address] [place] [address] 23037 PCP - General Internal Medicine 01/19/22 02/18/22 [facility], Pcp [address] [place] [address] PCP - General Internal Medicine 02/19/22 documented as of this encounter
--- OUTSIDE RECORDS SUMMARY | 2024-11-21 14:06 | XMS_ITS | Encounter Summary ---
Author Organization [facility] Address [address] [place] [address] Care Team Providers Care Post Office Clerk Name Role Phone Maggie Franz MD Primary Care Provider [phone] [facility], Pcp Primary Care Provider UnavailMaggie Carson MD Primary Care Provider [phone] [facility], Pcp Primary Care Provider Unavailluciano e Encounter Details Date Type Department Care Team Description 06/06/2010 Hospital Medical Records [address] [place] [address] Jo-Ann Browning APRN Social History Tobacco Use Types Packs/Day Years [...] on filedocumented in this encounter Care Teams Post Office Clerk Relationship Specialty Start Date End Date Maggie Franz MD [address] [place] [address] 20784 PCP - General 02/14/04 11/09/21 [facility], Pcp [address] [place] [address] 72815 PCP - General Internal Medicine 11/10/21 01/18/22 Maggie Franz MD [address] [place] [address] 23829 PCP - General Internal Medicine 01/19/22 02/18/22 [facility], Pcp [address] [place] [address] PCP - General Internal Medicine 02/19/22 documented as of this encounter
--- OUTSIDE RECORDS SUMMARY | 2024-11-21 14:06 | XMS_ITS | Encounter Summary ---
Author Organization [facility] Address [address] [place] [address] Care Team Providers Care Cad Cam Programmer Name Role Phone Maggie Franz MD Primary Care Provider [phone] [facility], Pcp Primary Care Provider Unavailabl e Maggie Franz MD Primary Care Provider [phone] [facility], Pcp Primary Care Provider Unavailabl e Reason for Visit * Reason Onset Date Comments VNA Call 07/03/2019 Encounter Details Date Type Department Care Team Description 07/03/2019 Telephone Adult Medicine [address] [address] Maggie Franz MD [address] [place] [address] VNA Call Social History Tobacco Use Types Packs/Day Years [...] encounter Miscellaneous Notes * Telephone Encounter - Cody Cleveland R.N - 07/03/2019 11:57 AM EDT fyi * Telephone Encounter - Stephani Reyes - 07/03/2019 11:44 AM EDT VNA CALL Which VNA office is calling? [facility] Full name of caller: Liyah The caller is A nurse Is the caller at the patients home?: NO Reason for call: FYI Pt goals have been met, pt is being discharged from vna services as of 07/03/2019 Does caller need an urgent call back? NO Was CONTACT Telephone # obtained above?: YES Fax #: documented in this encounter Plan of Treatment Not on file documented as of this encounter Visit Diagnoses Not on filedocumented in this encounter Care Teams Cad Cam Programmer Relationship Specialty Start Date End Date Maggie Franz MD [address] [place] [phone] PCP - General 02/14/04 11/09/21 [facility], Pcp [address] [place] [phone] PCP - General Internal Medicine 11/10/21 01/18/22 Maggie Franz MD [address] [place] [id number] PCP - General Internal Medicine 01/19/22 02/18/22 [facility], Pcp [address] [place] [phone] PCP - General Internal Medicine 02/19/22 documented as of this encounter
--- OUTSIDE RECORDS SUMMARY | 2024-11-21 14:06 | XMS_ITS | Encounter Summary ---
Author Organization [facility] Address [address] [place] [address] Care Team Providers Care Presser Automatic Name Role Phone Maggie Franz MD Primary Care Provider [phone] [facility], Pcp Primary Care Provider UnavailMaggie Carson MD Primary Care Provider [phone] [facility], Pcp Primary Care Provider Unavaillocated within [facility] e Encounter Details Date Type Department Care Team Description 01/13/2017 Precinct Captain Report Medical Records [address] [place] [id number] Harman Benedict, PAJostinC Social History Tobacco Use Types Packs/Day [...] on filedocumented in this encounter Care Teams Presser Automatic Relationship Specialty Start Date End Date Maggie Franz MD [address] [place] [phone] PCP - General 02/14/04 11/09/21 [facility], Pcp [address] [place] [phone] PCP - General Internal Medicine 11/10/21 01/18/22 Maggie Franz MD [address] [place] [address] [phone] PCP - General Internal Medicine 01/19/22 02/18/22 [facility], Pcp [address] [place] [address] PCP - General Internal Medicine 02/19/22 documented as of this encounter
--- OUTSIDE RECORDS SUMMARY | 2024-11-21 14:06 | XMS_ITS | Encounter Summary ---
Author Organization [facility] Address [address] [place] [address] Care Team Providers Care Requirements Engineer Name Role Phone Maggie Franz MD Primary Care Provider [phone] [facility], Pcp [facility] Maggie Garcia MD Primary Care Provider [phone] [facility], Pcp Primary Care [facility] Encounter Details Date Type Department Care Team Description 01/16/2021 Captain/Airline Pilot Report Medical Records [address] [place] [address] Mac Manriquez MD Social History Tobacco Use [...] on filedocumented in this encounter Care Teams Requirements Engineer Relationship Specialty Start Date End Date Maggie Franz MD [address] [place] [address] [phone] PCP - General 02/14/04 11/09/21 [facility], Pcp [address] [place] [phone] PCP - General Internal Medicine 11/10/21 01/18/22 Maggie Franz MD [address] [place] [phone] PCP - General Internal Medicine 01/19/22 02/18/22 [facility], Pcp [address] [place] [id number] PCP - General Internal Medicine 02/19/22 documented as of this encounter
--- OUTSIDE RECORDS SUMMARY | 2024-11-21 14:06 | XMS_ITS | Encounter Summary ---
Author Organization [facility] Address [address] [place] [address] Care Team Providers Care Qa Software Test Engineer Name Role Phone Maggie Franz MD Primary Care Provider [phone] [facility], Pcp Primary Care Provider UnavailMaggie Carson MD Primary Care Provider [phone] [facility], Pcp Primary Care Provider Unavailluciano e Encounter Details Date Type Department Care Team Description 06/16/2017 Dipper Clock And Watch Hands Report Medical Records [address] [place] [address] Palomo Ordoñez MD Social History Tobacco Use [...] on filedocumented in this encounter Care Teams Qa Software Test Engineer Relationship Specialty Start Date End Date Maggie Franz MD [address] [place] [phone] PCP - General 02/14/04 11/09/21 [facility], Pcp [address] [place] [phone] PCP - General Internal Medicine 11/10/21 01/18/22 Maggie Franz MD [address] [place] [address] [phone] PCP - General Internal Medicine 01/19/22 02/18/22 [facility], Pcp [address] [place] [address] PCP - General Internal Medicine 02/19/22 documented as of this encounter
--- OUTSIDE RECORDS SUMMARY | 2024-11-21 14:06 | XMS_ITS | Encounter Summary ---
Author Organization [facility] Address [address] [place] [address] Care Team Providers Care Sales Representative Rural Power Name Role Phone Maggie Franz MD Primary Care Provider [phone] [facility], Pcp Primary Care Provider Unavailluciano e Maggie Franz MD Primary Care Provider [phone] [facility], Pcp Primary Care Provider Unavailabl e Encounter Details Date Type Department Care Team Description 02/16/2019 Senior Backup Administrator Report Medical Records [address] [place] [address] Mac Manriquez MD Social History Tobacco Use [...] filedocumented in this encounter Care Teams Sales Representative Rural Power Relationship Specialty Start Date End Date Maggie Franz MD [address] [place] [phone] PCP - General 02/14/04 11/09/21 [facility], Pcp [address] [place] [phone] PCP - General Internal Medicine 11/10/21 01/18/22 Maggie Franz MD [address] [place] [address] [phone] PCP - General Internal Medicine 01/19/22 02/18/22 [facility], Pcp [address] [place] [address] PCP - General Internal Medicine 02/19/22 documented as of this encounter
== END 2024-11-21 09:31 | disposition home or self-care (01) ==
LOC: HO.HMGCLNP 09:30
PROVIDERS: Visit Provider Nurse Practitioner Family
DX: J40 Bronchitis, not specified as acute or chronic (principal)
CPT/HCPCS: 87070; 87077; 87186; 87205

== ENCOUNTER 2025-01-05 13:52 | Outpatient (AMB) | payer MEDICARE, OTHER, SELFPAY ==
[2025-01-05 13:54] VITALS: BP 124/60; PULSE 86; O2SAT 95; BMI 25.7
--- NOTE | 2025-01-05 13:54 | MHC.OFFVIS ---
Vital Signs 01/05/25 13:54 Height 5 ft 6 in Weight 159 lb BMI 25.7 BP 124/60 Blood Pressure Location Rt brachial Position Sitting Pulse 86 Pulse Source Pulse Oximeter Pulse Oximetry (%) 95 Oxygen Delivery Method Room Air Intake Visit Reasons: Cough Acetylene Plant Operator Required: No Welder 2Nd Shift: Welder 2Nd Shift offered & declined Accompanied by: Family/Other Allergies oxycodone Adverse Reaction (Verified 01/05/25 14:00) Hallucinations latex Allergy (Uncoded 01/05/25 14:00) rash Medication List - Last Reconciled 01/05/25 by Yadira Minor LPN acetaminophen (Tylenol) 650 mg PO Q6H PRN aspirin (Adult Aspirin Regimen) 81 mg PO DAILY carvedilol 3.125 mg PO BID cetirizine 10 mg PO DAILY clopidogrel 75 mg PO DAILY cyanocobalamin (vitamin B-12) 1,000 mcg PO DAILY empagliflozin (Jardiance) 10 mg PO DAILY ezetimibe 10 mg PO Q OTHER DAY ferrous sulfate 325 mg PO DAILY gabapentin 300 mg PO TID hydromorphone 4 mg PO Q6H PRN hydroxyzine HCl 10 mg PO BID levalbuterol HCl 1.25 mg (3 mL) inhalation Q4-6H PRN midodrine 10 mg PO TID multivitamin 1 tab PO DAILY pantoprazole 20 mg PO DAILY rosuvastatin 40 mg PO DAILY sacubitril-valsartan 24-26 mg (Entresto) 1 tab PO BID torsemide 3 mg PO Q OTHER DAY PRN torsemide 20 mg PO DAILY HPI HPI Cough: Details: Arnel is a pleasant 84-year-old male, former smoker, quit 1979 with 15 parking history, with underlying HFrEF s/p ICD 2020, CKDIII, anemia, hyperlipidemia, hypertension, glaucoma, history of NM CABG x4 in 2018, 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 He is accompanied by daughter and , ambulating without assistance. At the last visit, he was started on Levaquin 500 x 14 days on 11/28 for pseudomonas infection and reports no significant improvements in productive cough, difficulty expectorating, chest congestion and fatigue. He denies fevers or chills. He has been using levalbuterol BID with minimal effect. Patient continues with BLE edema, recently started on Jardiance through Cardiology. [facility] Medical History (Updated 01/05/25 @ 14:35 by Georgie Markham NP) Other mechanical complication of internal fixation device of vertebrae, initial encounter Discitis of lumbosacral region Osteomyelitis Social History Patient Tobacco Use Status: Former Tobacco user Tobacco use type: Cigarette Cigarette Packs Per Day: 1 Years Smoked: 20 years/ Quit in 1977 Review of Systems Const Denies chills, Denies excessive sweating, Denies fever(s), Denies headache(s) and Denies night sweats Eyes Denies dry eyes, Denies irritation and Denies itchy eyes ENT Reports Normal hearing present, Denies headache(s), Denies nasal congestion, Denies nasal discharge, Denies post nasal drip and Denies sore throat Card Denies chest pain, Denies chest pain at rest, Denies chest pain with activity, Denies claudication, Reports leg edema, Denies dyspnea, Denies dyspnea on exertion, Denies orthopnea and Denies paroxysmal nocturnal dyspnea Resp Reports chest congestion, Reports cough, Denies hemoptysis, Denies pain on inspiration, Denies pain with cough, Denies dyspnea, Denies dyspnea on exertion, Denies stridor and Reports wheezing Musc Denies myalgias Neuro Reports Normal hearing present and Denies headache(s) Endo Denies excessive sweating Kris/Lymph Denies lymphadenopathy Aller/Immun Denies itchy eyes, Denies seasonal rhinorrhea and Reports wheezing Physical Exam Vital Signs: Last Vital Signs Pulse 86 01/05/25 13:54 BP 124/60 01/05/25 13:54 Pulse Ox 95 01/05/25 13:54 Oxygen Delivery Method Room Air 01/05/25 13:54 BMI result Body Mass Index 25.7 Const General: cooperative, comfortable, no acute distress, well developed and alert Orientation/consciousness: patient oriented x3 HEENT Head: Yes normal to inspection, Yes normocephalic and Yes atraumatic Ears: hearing grossly normal bilaterally and external ears normal Eyes General: appearance normal, both eyes and all related structures Eyelids: Yes eyelids normal Sclerae: sclerae normal EOM: EOMs intact bilaterally Neck Neck: Yes normal visual inspection and Yes no lymphadenopathy Lymphatic: no lymphadenopathy noted Chest Chest palpation & inspection: normal inspection of the chest Resp Effort & Inspection: normal respiratory effort, able to speak in complete sentences, no audible wheezes, Actively coughing Quality: productive, no stridor, not tachypneic, no tripod positioning and no use of accessory muscles Auscultation: rhonchi Cardio Jugular venous distension: no JVD Rate: regular rate Rhythm: regular rhythm Skin Other: warm, dry General skin exam: no rashes or lesions noted Neuro General: patient oriented x3 Cranial nerves: Yes Normal hearing present Cognition (Neuro): normal cognition Extrem Other: 2+ pitting edema BLE Psych Appearance: grossly normal and well kempt Speech and movement: Normal speech and movement present and Clear speech present Affect: normal affect Attitude: cooperative Thought process: Normal thought process present Thought content: Normal thought content present Insight: Good insight present (Psych) Judgement: Good judgement present (Psych) Assessment & Plan Assessment & Plan (1) Pseudomonas aeruginosa infection: Code(s): A49.8 - Other bacterial infections of unspecified site Category: Medical (2) Cough: Code(s): R05.9 - Cough, unspecified Category: Medical (3) Personal history of tobacco use: Code(s): Z87.891 - Personal history of nicotine dependence Category: Social Hx Plan Arnel reports minimal improvement after Levaquin 500 mg x 14 days for pseudomonas infection. Will send for chest CT to further evalaute lung parenchyma and likely need to start IV Ertapenem, with PICC line placement. Will also send flutter valve to help with mucous clearance to be used with nebulizer. All questions were answered and patient is in agreement of plan. Will follow up with CT results and further treatment plan or sooner if needed. Orders: Orders CT chest wo IV con Today A49.8 - Other bacterial infections of unspecified site, R05.9 - Cough, unspecified Coding Level of Care Code Est Pt Level 4 (30730) Diagnoses Pseudomonas aeruginosa infection A49.8 Cough R05.9 Personal history of tobacco use Z87.891
--- OUTSIDE RECORDS SUMMARY | 2025-01-05 15:39 | XMS_ITS | Clinical Summary ---
Author Organization [facility] Address [address] [place] [address] Care Team Providers Care Production Supply Equipment Tender Name Role Phone Maggie Franz MD Primary Care Provider [phone] Medications acetaminophen (TYLENOL) 325 MG tablet Take [...] 12/06/2017 Influenza Vaccine (#1) 2024 Insurance MEDICARE [facility] MEDICARE [facility] Care Teams Production Supply Equipment Tender Relationship Specialty Start Date End Date Maggie Franz MD PCP - General 10/14/20
== END 2025-01-05 14:30 | disposition home or self-care (01) ==
LOC: HO.HPSW 13:52
PROVIDERS: PCP Internal Medicine; Visit Provider Nurse Practitioner Family
DX: A49.8 Other bacterial infections of unspecified site (principal); R05.9 Cough, unspecified; Z87.891 Personal history of nicotine dependence
CPT/HCPCS: 99214

== ENCOUNTER → 2025-01-05 13:52 | Outpatient (BNVA) | payer MEDICARE, OTHER, SELFPAY | PROVIDERS: PCP Internal Medicine; Visit Provider Nurse Practitioner Family | DX: A49.8 Other bacterial infections of unspecified site (principal); R05.9 Cough, unspecified; Z87.891 Personal history of nicotine dependence | CPT/HCPCS: 99212 ==

== ENCOUNTER 2025-02-05 12:26 | Outpatient (REF) | payer MEDICARE, OTHER, SELFPAY ==
--- NOTE | ~2025-02-05 | CT_ITS ---
EXAMINATION: CT CHEST WITHOUT CONTRAST CLINICAL INFORMATION: Bacterial infections, unspecified site. COMPARISON: None available. TECHNIQUE: Multidetector volumetric CT imaging of the chest was done. Axial MIP volume rendering provided. Sagittal and coronal reformatted images were obtained. This CT examination was performed using dose optimization techniques as appropriate, variously including the following: *Automated exposure control *Adjustment of mA and/or kV according to patient size (this includes techniques or standardized protocols for targeted exams where dose is matched to indication/reason for exam; i.e. extremities or head) *Use of iterative reconstruction technique. DLP: 160 mGy centimeter. FINDINGS: SENIOR CONSULTING MANAGER: Left-sided pacemaker with 3 electrode leads. Sternal wires and mediastinal vascular clips. Probable intervertebral disc spacer and the upper lumbar spine. Patient's large body habitus. LUNGS: Multifocal patchy pulmonary groundglass in peribronchial septal thickening with questionable tree in bud pattern involving mostly the left lung base and to a lesser extent right lung base. Respiratory airways demonstrated layering secretions in the trachea. No gross pulmonary nodules. No gross bronchiectasis or honeycombing.. MEDIASTINUM: No lymphadenopathy. Calcified plaques throughout the thoracic aorta its main branches and the coronary arteries. No gross pericardial effusion. Calcifications in the mitral valve. Electrode leads in the right heart chambers and the coronary venous sinus. CORONARY ARTERY CALCIFICATION: Calcifications. PLEURA: No pleural effusion. No pneumothorax. AXILLA: No lymphadenopathy. UPPER ABDOMEN: 2 cm hypodensity in the right hepatic lobe. Punctate calcification in the right hepatic lobe. Vascular calcifications mesenteric arteries splenic artery and the renal arteries as well as the abdominal aorta. Status post stenting, celiac trunk and right main renal artery. OSSEOUS STRUCTURES: A S-shaped curvature of the thoracolumbar spine. Multilevel cervical thoracic and upper lumbar spondylosis. Vacuum phenomenon marginal osteophyte formation and subchondral cyst formation and decreased intervertebral disc height at L1-2 . Sternal wires. Metallic reservoir of the left sided pacemaker.. . CT/CT chest wo IV con IMPRESSION: Multifocal pneumonia. Aspiration pneumonia should be considered in the correct clinical settings. Coronary artery disease and atherosclerosis disease. Fleischner guidelines were followed. Electronically signed by: Nii Hwang MD 02/05/2025 02:37 PM EDT
--- OUTSIDE RECORDS SUMMARY | 2025-02-05 13:53 | XMS_ITS | Clinical Summary ---
Author Organization [facility] Address [address] [place] [address] Care Team Providers Care Water Reclamation Systems Operator Name Role Phone Maggie Franz MD Primary Care Provider [phone] Medications acetaminophen (TYLENOL) 325 MG tablet Take [...] - Risk 3-dose series) 11/05 Pneumococcal Vaccine: 50+ Years (2 of 2 - PPSV23) 01/0412/06/2017 Influenza Vaccine (Season Ended) 2025 Pneumococcal Vaccine: Peds ( 0 to 5 Years) and At-Risk Patients (6 to 49 Years) Discontinued 12/06/2017 Insurance Medicare [facility] Medicare [facility] Care Teams Water Reclamation Systems Operator Relationship Specialty Start Date End Date Maggie Franz MD PCP - General 10/14/20
== END 2025-02-05 12:27 | disposition home or self-care (01) ==
LOC: HO.CT 12:26
PROVIDERS: PCP Internal Medicine; Visit Provider Nurse Practitioner Family
DX: A49.8 Other bacterial infections of unspecified site (principal); R05.9 Cough, unspecified
CPT/HCPCS: 71250

== ENCOUNTER → 2025-02-05 12:28 | Outpatient (BNV) | payer MEDICARE, OTHER, SELFPAY | PROVIDERS: PCP Internal Medicine; Visit Provider Radiology Diagnostic Radiology | DX: J18.9 Pneumonia, unspecified organism (principal); I25.10 Atherosclerotic heart disease of native coronary artery without angina pectoris | CPT/HCPCS: 71250 ==

== ENCOUNTER 2025-03-01 10:04 | Outpatient (REF) | payer MEDICARE, OTHER, SELFPAY ==
--- NOTE | ~2025-03-01 | CT_ITS ---
EXAMINATION: CT CHEST HIGH RESOLUTION WITHOUT IV CONTRAST INDICATION: A49.8 - Other bacterial infections of unspecified site COMPARISON: Boelus is made with the prior examination dated 02/05/2025. TECHNIQUE: Helical CT scan of the chest was performed without intravenous contrast. In addition, high resolution 1.5 mm thick images were obtained in full inspiration. Coronal and sagittal reformatted images were generated and reviewed. This CT exam was performed with one or more of the following dose reduction techniques: automated exposure control, adjustment of the mA and/or kV according to patient size, use of iterative reconstruction technique. DLP: 264 mGy-cm CHEST: THYROID: The thyroid is unremarkable. LUNGS: Again seen is mild bronchiectasis and scarring at the right lung base. There is moderate bronchiectasis at the left lung base with associated patchy airspace opacity, consistent with pneumonia. This has progressed slightly since the prior study. The upper lungs are clear. There are no thickened interlobular septae or groundglass opacities. There is no honeycombing. A punctate calcified granuloma is noted at the left lung base (series 5, image 152). No concerning pulmonary nodules are identified. MEDIASTINUM: There is no mediastinal lymphadenopathy. SHANNON: Evaluation of the hilar regions is limited by lack of intravenous contrast material. CARDIOVASCULATURE: The heart is normal in size. There is no pericardial effusion. There is severe atherosclerotic calcification of the thoracal abdominal aorta and its branches. There is no aneurysm. DEGREE OF CORONARY CALCIFICATION: severe, status post CABG. PLEURA: There is no pleural effusion. No pneumothorax. MAIN AIRWAYS: The mainstem bronchi and proximal branches are patent. AXILLA: There is no axillary lymphadenopathy. BONES AND SOFT TISSUES: Unremarkable UPPER ABDOMEN: Again seen is an ovoid 1.8 cm hypodensity in the right lobe of the liver which may represent a cyst. The visualized portions of the spleen and adrenals have an unremarkable unenhanced appearance. CT/CT chest wo con - High Res IMPRESSION: Bronchiectasis in both lower lobes, left greater than right. There is patchy airspace opacity at the left lung base, consistent with pneumonia, which demonstrates mild progression since the prior study. Continued follow-up is recommended. Electronically signed by: Jamie Albright MD 03/01/2025 11:11 AM EDT RP
--- OUTSIDE RECORDS SUMMARY | 2025-03-01 10:23 | XMS_ITS | Clinical Summary ---
Author Organization [facility] Address [address] [place] [address] Care Team Providers Care Senior Wind Energy Consultant Name Role Phone Maggie Franz MD Primary Care Provider [phone] Medications acetaminophen (TYLENOL) 325 MG tablet Take [...] Risk 3-dose series) 11/05 Pneumococcal Vaccine: 50+ Ye ars (2 of 2 - PPSV23, PCV20, or PCV21) 01/31/2018 12/06/2017 Influenza Vaccine (Season Ended) 2025 Pneumococcal Vaccine: Peds ( 0 to 5 Years) and At-Risk Patients (6 to 49 Years) Discontinued 12/06/2017 Insurance Medicare [facility] Medicare [facility] Care Teams Senior Wind Energy Consultant Relationship Specialty Start Date End Date Maggie Franz MD PCP - General 10/14/20
== END 2025-03-01 10:05 | disposition home or self-care (01) ==
LOC: HO.CT 10:04
PROVIDERS: PCP Internal Medicine; Visit Provider Nurse Practitioner Family
DX: A49.8 Other bacterial infections of unspecified site (principal); R05.9 Cough, unspecified; J18.9 Pneumonia, unspecified organism
CPT/HCPCS: 71250

== ENCOUNTER → 2025-03-01 10:06 | Outpatient (BNV) | payer MEDICARE, OTHER, SELFPAY | PROVIDERS: PCP Internal Medicine; Visit Provider Radiology Diagnostic Radiology | DX: J47.9 Bronchiectasis, uncomplicated (principal) | CPT/HCPCS: 71250 ==

== ENCOUNTER 2025-04-20 12:51 | Outpatient (AMB) | payer MEDICARE, OTHER, SELFPAY ==
--- NOTE | 2025-04-20 12:50 | A.OFFVIS_ITS ---
Vital Signs 04/20/25 12:58 Height 5 ft 6 in Weight 153 lb BMI 24.7 BP 112/62 Blood Pressure Location Rt brachial Position Sitting Pulse 69 Pulse Source Pulse Oximeter Pulse Oximetry (%) 96 Oxygen Delivery Method Room Air Intake Visit Reasons: Cough/CT Follow Up Workers' Compensation Magistrate Required: No Spooling Operator: Spooling Operator offered & declined Accompanied by: Family/Other Allergies oxycodone Adverse Reaction (Verified 04/20/25 13:04) Hallucinations latex Allergy (Uncoded 04/20/25 13:04) rash Medication List - Last Reconciled 04/20/25 by Yadira Minor LPN acetaminophen (Tylenol) 650 mg PO Q6H PRN aspirin (Adult Aspirin Regimen) 81 mg PO DAILY cetirizine 10 mg PO DAILY clopidogrel 75 mg PO DAILY cyanocobalamin (vitamin B-12) 1,000 mcg PO DAILY empagliflozin (Jardiance) 10 mg PO DAILY ezetimibe 10 mg PO Q OTHER DAY ferrous sulfate 325 mg PO DAILY gabapentin 300 mg PO TID hydromorphone 4 mg PO Q6H PRN levalbuterol HCl 1.25 mg (3 mL) inhalation Q4-6H PRN midodrine 10 mg PO TID multivitamin 1 tab PO DAILY pantoprazole 20 mg PO DAILY rosuvastatin 40 mg PO DAILY sacubitril-valsartan 24-26 mg (Entresto) 1 tab PO BID tobramycin with nebulizer 300 mg/5 mL 300 mg (5 mL) inhalation BID 56 days torsemide 3 mg PO Q OTHER DAY PRN torsemide 20 mg PO DAILY HPI HPI Cough/CT Follow Up: Details: Arnel is a pleasant 84-year-old male, former smoker, quit 1979 with 15 parking history, with underlying HFrEF s/p ICD 2020, CKDIII, anemia, hyperlipidemia, hypertension, glaucoma, history of ME CABG x4 in 2018, 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 He is accompanied by daughter and , ambulating without assistance. He was found to have pseudomonas + sputum culture and failed oral Levaquin. Due to insurance there was a delay in obtaining inhaled Tobramycin however patient received and completed 1 month about a week ago. He reports a reduction in wheezing and cough frequency, although a productive cough persists with yellowish sputum. Shortness of breath has improved but is not completely resolved. Denies chest congestion, fevers or chills. [facility] Medical History (Updated 02/14/25 @ 14:46 by Georgie Markham NP) Other mechanical complication of internal fixation device of vertebrae, initial encounter Discitis of lumbosacral region Osteomyelitis Social History Patient Tobacco Use Status: Former Tobacco user Tobacco use type: Cigarette Cigarette Packs Per Day: 1 Years Smoked: 20 years/ Quit in 1977 Review of Systems Const Denies chills, Denies excessive sweating, Denies fever(s), Denies headache(s) and Denies night sweats Eyes Denies dry eyes, Denies irritation and Denies itchy eyes ENT Reports Normal hearing present, Denies headache(s), Denies nasal congestion, Denies nasal discharge, Denies post nasal drip and Denies sore throat Card Denies chest pain, Denies chest pain at rest, Denies chest pain with activity, Denies claudication, Denies orthopnea and Denies paroxysmal nocturnal dyspnea Resp Reports cough, Denies hemoptysis, Denies pain on inspiration, Denies pain with cough and Denies stridor Musc Denies myalgias Neuro Reports Normal hearing present and Denies headache(s) Endo Denies excessive sweating Kris/Lymph Denies lymphadenopathy Aller/Immun Denies itchy eyes and Denies seasonal rhinorrhea Physical Exam Vital Signs: Last Vital Signs Pulse 69 04/20/25 12:58 BP 112/62 04/20/25 12:58 Pulse Ox 96 04/20/25 12:58 Oxygen Delivery Method Room Air 04/20/25 12:58 BMI result Body Mass Index 24.7 Const General: cooperative, comfortable, no acute distress, well developed and alert Orientation/consciousness: patient oriented x3 HEENT Head: Yes normal to inspection, Yes normocephalic and Yes atraumatic Ears: hearing grossly normal bilaterally and external ears normal Eyes General: appearance normal, both eyes and all related structures Eyelids: Yes eyelids normal Sclerae: sclerae normal EOM: EOMs intact bilaterally Neck Neck: Yes normal visual inspection and Yes no lymphadenopathy Lymphatic: no lymphadenopathy noted Chest Chest palpation & inspection: normal inspection of the chest Resp Effort & Inspection: normal respiratory effort, able to speak in complete sentences, no audible wheezes, Actively coughing Quality: productive, no stridor, not tachypneic, no tripod positioning and no use of accessory muscles Auscultation: rhonchi Cardio Jugular venous distension: no JVD Rate: regular rate Rhythm: regular rhythm Skin Other: warm, dry General skin exam: no rashes or lesions noted Neuro General: patient oriented x3 Cranial nerves: Yes Normal hearing present Cognition (Neuro): normal cognition Extrem Other: 2+ pitting edema BLE Psych Appearance: grossly normal and well kempt Speech and movement: Normal speech and movement present and Clear speech present Affect: normal affect Attitude: cooperative Thought process: Normal thought process present Thought content: Normal thought content present Insight: Good insight present (Psych) Judgement: Good judgement present (Psych) Results Reviewed Results Reviewed: [address] [address] [address] Scan Report Signed Patient: Arnel Quintana MR#: [id number] : 1940 Acct:[id number] Age/Sex: 84 / M ADM Date: 03/01/25 Loc: HO.CT Attending Dr: Georgie Markham NP Ordering Physician: Georgie Markham NP Date of Service: 03/01/25 Procedure(s): CT chest [facility] Accession Number(s): [id number] cc: Yocasta Cary MD; Georgie Markham NP~ Report Number: [id number]: Total DLP = 264.00 mGy-cm EXAMINATION: CT CHEST HIGH RESOLUTION WITHOUT IV CONTRAST INDICATION: A49.8 - Other bacterial infections of unspecified site COMPARISON: [place] is made with the prior examination dated 02/05/2025. TECHNIQUE: Helical CT scan of the chest was performed without intravenous contrast. In addition, high resolution 1.5 mm thick images were obtained in full inspiration. Coronal and sagittal reformatted images were generated and reviewed. This CT exam was performed with one or more of the following dose reduction techniques: automated exposure control, adjustment of the mA and/or kV according to patient size, use of iterative reconstruction technique. DLP: 264 mGy-cm CHEST: THYROID: The thyroid is unremarkable. LUNGS: Again seen is mild bronchiectasis and scarring at the right lung base. There is moderate bronchiectasis at the left lung base with associated patchy airspace opacity, consistent with pneumonia. This has progressed slightly since the prior study. The upper lungs are clear. There are no thickened interlobular septae or groundglass opacities. There is no honeycombing. A punctate calcified granuloma is noted at the left lung base (series 5, image 152). No concerning pulmonary nodules are identified. MEDIASTINUM: There is no mediastinal lymphadenopathy. SHANNON: Evaluation of the hilar regions is limited by lack of intravenous contrast material. CARDIOVASCULATURE: The heart is normal in size. There is no pericardial effusion. There is severe atherosclerotic calcification of the thoracal abdominal aorta and its branches. There is no aneurysm. DEGREE OF CORONARY CALCIFICATION: severe, status post CABG. PLEURA: There is no pleural effusion. No pneumothorax. MAIN AIRWAYS: The mainstem bronchi and proximal branches are patent. AXILLA: There is no axillary lymphadenopathy. BONES AND SOFT TISSUES: Unremarkable UPPER ABDOMEN: Again seen is an ovoid 1.8 cm hypodensity in the right lobe of the liver which may represent a cyst. The visualized portions of the spleen and adrenals have an unremarkable unenhanced appearance. CT/CT chest wo con - High Res IMPRESSION: Bronchiectasis in both lower lobes, left greater than right. There is patchy airspace opacity at the left lung base, consistent with pneumonia, which demonstrates mild progression since the prior study. Continued follow-up is recommended. Electronically signed by: Jamie Albright MD 03/01/2025 11:11 AM EDT Dictated By: Jamie Albright MD Signed By: <Electronically signed by Jamie Albright MD in [place]> 03/01/25 1111 DD/ 1034 Assessment & Plan Assessment & Plan (1) Pseudomonas aeruginosa infection: Code(s): A49.8 - Other bacterial infections of unspecified site Category: Medical (2) Cough: Code(s): R05.9 - Cough, unspecified Category: Medical (3) Personal history of tobacco use: Code(s): Z87.891 - Personal history of nicotine dependence Category: Social Hx Plan Arnel reports moderate improvement after nebulized Tobramycin x 28 days for pseudomonas infection. Will repeat another course given improvements pending kidney function results and if symptoms continue, will send for chest CT to further evalaute lung parenchyma and likely need to start IV Ertapenem, with PICC line placement. He also has a flutter valve to help with mucous clearance to be used with nebulizer. All questions were answered and patient is in agreement of plan. Will follow up in 4-6 weeks or sooner if needed. Orders: Orders CT chest wo con - High Res 04/20/25 A49.8 - Other bacterial infections of unspecified site, J18.9 - Pneumonia, unspecified organism Medications: Discontinued tobramycin with nebulizer 300 mg/5 mL separate doses by at least 6 hours Discontinued Reason: Patient Completed Course 300 mg (5 mL) inhalation BID 28 days 280 mL 0RF A49.8 - Other bacterial infections of unspecified site Coding Level of Care Code Est Pt Level 4 (85251) Complex EM visit Add On G2211 Diagnoses Pseudomonas aeruginosa infection A49.8 Cough R05.9 Personal history of tobacco use Z87.296
--- OUTSIDE RECORDS SUMMARY | 2025-04-20 12:53 | XMS_ITS | Clinical Summary ---
Author Organization [facility] Address [address] [facility] [address] [place] [address] Phone Care Team Providers Care Sifter Operator Name Role Phone Hemal Ball Primary Care Provider [phone] Allergies Active Allergy Reactions Criticality Noted Date Comments Latex 12/11/2020 Other reaction(s): Rash/Dermatitis Oxycodone 09/12/2024 Other Reaction(s): weird/feeling drugged and spacey Oxycodone-Acetaminophen 09/07/2022 Medications aspirin 81 mg chewable tablet Take 81 mg by mouth daily. Active multivitamins capsule Take 1 capsule by mouth daily. 3x weekly Active gabapentin (NEURONTIN) 300 MG capsule Take 300 mg by mouth 2 (two) times a day. Active rosuvastatin (CRESTOR) 40 MG tablet Take 40 mg by mouth daily. Active acetaminophen (TYLENOL) 500 MG tablet Take 1,000 mg by mouth every 6 (six) hours as needed for pain (specific location in comments). Active hydrocortisone 1 % cream Apply topically 2 (two) times a day as needed. Active nitroglycerin (NITROSTAT) 0.[address] 0.4 mg under the tongue every 5 (five) minutes as needed for chest pain. Active latanoprost (XALATAN) 0.005 % ophthalmic solution Place 1 drop into each eye nightly at bedtime. Active sacubitriL-dennis sartan (ENTRESTO) 24-26 mg per tablet Take 1 tablet by mouth 2 (two) times a day. Active pantoprazole (PROTONIX) 40 MG tablet Take 40 mg by mouth daily. Active midodrine (PROAMATINE) 5 MG tablet Take 2 tablets by mouth 3 (three) times a day. Active cetirizine (ZYRTEC) 10 MG tablet 1 tablet Orally Once a day Active cyanocobalamin , vitamin B-12, 100 MCG tablet Take 100 mcg by mouth daily. Active timolol (TIMOPTIC) 0.5 % ophthalmic solution 02/10/20 24 Active calcium carbonate-sujata min D3 1,250 mg (500 mg elemental)-400 units per tablet Take 1 tablet by mouth daily. Active ferrous sulfate 325 mg (65 mg venetie iron) tablet Take 325 mg by mouth 3 (three) times a day with meals. Active alendronate (FOSAMAX) 70 MG tablet Take 70 mg by mouth every 7 days. Take in the morning with a full glass of water, on an empty stomach, and do not take anything else by mouth or lie down for the next 30 min. Active clopidogrel (PLAVIX) 75 mg tabletIndicati ons:Atheroscle rosis of cheesh-na coronary artery of cheesh-na heart without angina pectoris TAKE 1 TABLET BY MOUTH EVERY DAY 90 tablet 3 09/20/20 24 Active torsemide (DEMADEX) 10 MG tablet TAKE 1 AND 1/2 TABLETS DAILY BY MOUTH 135 tablet 3 03/09/20 25 Active JARDIANCE 10 mg tablet TAKE 1 TABLET BY MOUTH EVERY DAY 30 tablet 3 03/30/20 25 Active ezetimibe (ZETIA) 10 mg tablet Take 1 tablet (10 mg total) by mouth every other day. 45 tablet 3 04/03/20 25 Active ezetimibe (ZETIA) 10 mg tablet Take 10 mg by mouth every other day. 025 Discontinued(Re order) empagliflozin (JARDIANCE) 10 mg tablet Take 1 tablet (10 mg total) by mouth daily. 30 tablet 3 12/12/19 25 025 Discontinued Active Problems Problem Noted Date Diagnosed Date HFrEF (heart failure with reduced ejection fract ion) 12/11/2024 Assessment & Plan (12/11/2024 1:35 PM EDT): As we discussed he decrease his diuretic about a week ago, currently taking 10 mg of torsemide daily. Warm/wet on exam with +2 lower extremity swelling His PAD on CardioMEMS has been trending up over the last few days. Diuretic: Increase torsemide to 15 mg daily which I am told was his prior maintenance dose GDMT: Start Jardiance 10 mg daily Continue Entresto 24-26 twice daily Continue on midodrine as startedstarted by Dr. Saleem to allow GDMT. Repeat labs today ICD (implantable cardioverter-defibrillator) in place 05/31/2024 Assessment & Plan (09/12/2024 12:56 PM EST): At this point this is followed in our device clinic and it is functioning well. Assessment & Plan (07/14/2024 1:15 PM EDT): This is being monitored through the [place] office I did verify that there was an interrogation performed approximately a year ago looks like he only has an appointment scheduled later this year for repeat in person device interrogation Assessment & Plan (05/31/2024 5:29 PM EDT): Patient tells me he did have his MANAGER [employer]-D placed in 2019. From what he tells me this was done for primary prevention with his LVEF less than 35% at that time. He is not aware of having ever had shocks delivered. His device is being monitored remotely through the [place] office. We were able to download the recent report dated 05/18/2024. There is no atrial fibrillation noted on this report. ECG today showing an irregular wide-complex rhythm possibly with PVCs. Perhaps some beats just MA[employer] pacing versus not. Irregularity potentially concerning for atrial fibrillation however as already stated recent remote download showing no episodes of A-fib recorded at that time. I will have him return to our office to be seen by electrophysiology who can interrogate his ICD. Patient does not recall the last time he had seen electrophysiology MD or had his device interrogated in person. PVD (peripheral vascular disease) 09/07/2022 Assessment & Plan (09/12/2024 12:56 PM EST): I placed a stent in his iliac artery which we follow with ultrasound which is widely patent Assessment & Plan (05/31/2024 5:08 PM EDT): Currently no symptoms concerning for claudication Recently had iliac artery stent done through [facility] I am told. He follows with [facility] vascular for his PVD. Should continue on aspirin/Plavix Assessment & Plan (02/11/2024 10:08 AM EDT): Present but asymptomatic he periodically gets lower extremity arterial duplex ultrasounds Assessment & Plan (10/29/2023 11:31 AM EST): Severe but followed with duplex ultrasounds. Assessment & Plan (06/08/2023 11:55 AM EDT): As mentioned this patient more than likely has a new occlusion that is asymptomatic in his left popliteal artery and the left iliac stent is widely patent he does not have any obvious other obstructive lesions we will simply follow this conservatively no plan for intervention will be done at this time Benign essential hypertension 09/07/2022 Assessment & Plan (09/12/2024 12:57 PM EST): Well-controlled Assessment & Plan (05/31/2024 5:10 PM EDT): He is currently being prescribed both midodrine as well as Entresto. Family tells me there has been previous discussion with Dr. Saleem regarding this combination of medication and this was something that he had wanted to continue. Ideally would be nice to get him off of the midodrine while he is taking Entresto. We are increasing his diuretic for 4 days for some mild volume overload as below Once he is back on his normal diuretic regimen I would like him to try cutting his midodrine dose in half I have instructed him that if his systolic blood pressure goes below 110 consistently or if he develops symptoms of lightheadedness or dizziness he should go back to his usual dosing of midodrine Assessment & Plan (02/11/2024 10:09 AM EDT): Well-controlled at this time Assessment & Plan (06/08/2023 11:55 AM EDT): As mentioned his heart failure meds were on hold he is on midodrine which I want to get off Assessment & Plan (09/07/2022 10:47 AM EST): Well-controlled and as mentioned I would not give this patient midodrine if his pressures were too low I would trim back one of his other medications Pure hypercholesterolemia 09/07/2022 Assessment & Plan (05/31/2024 5:14 PM EDT): LDL is very well-controlled on review of labs recently done at [facility] Assessment & Plan (02/11/2024 10:09 AM EDT): LDL is aggressively controlled to the guidelines Assessment & Plan (10/29/2023 11:31 AM EST): Ideally LDL should be less than 70 Assessment & Plan (09/13/2023 10:30 AM EST): Hemoglobin A1c should be less than 7 and LDL less than 70 mg/dL. 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 Since then despite being maintained on maximally tolerated GDMT his LVEF is now down back in the 35-40% range again. Will update with a nuclear stress test Continue aspirin/Plavix/statin LDL should be less than 70 He had labs at [facility] earlier this year in February showing cholesterol 124, triglycerides 123, HDL 59, LDL 43 Assessment & Plan (05/31/2024 5:10 PM EDT): No symptoms concerning for angina at this time. Continue aspirin/Plavix/statin I have reviewed most recent lipid profile through [facility]. Lipids well-controlled. Should maintain his LDL less than 70 Assessment & Plan (02/11/2024 10:09 AM EDT): He had bypass surgery before rendering him symptom-free he has no angina Assessment & Plan (10/29/2023 11:31 AM EST): He had bypass surgery rendering him symptom-free Assessment & Plan (09/13/2023 10:29 AM EST): This patient had bypass surgery in the past but EF is 35 to 40% he has a defibrillator in place he is a [place] [employer] class III patient with a recurrent hospitalization for heart failure I explained risk benefits and alternatives to him regarding a CardioMEMS implant which we will do at [facility]. Assessment & Plan (09/07/2022 10:46 AM EST): This patient underwent multivessel bypass surgery EF is 35% with an ICD implant he is not having any heart failure or anginal type symptoms and is very stable Biventricular congestive heart failure 2 Assessment & Plan (07/14/2024 1:20 PM EDT): Still denying symptoms of congestive heart failure He does have a [employer]-D Warm/wet on exam +1 pitting edema bilaterally PA pressures are still elevated and CardioMEMS 42/19 (30) Diuretics: Will increase his torsemide 30 mg to 40 mg daily GDMT: Currently only on Entresto 24-26 twice daily Being maintained on midodrine 10 mg 3 times daily to support this Next visit we should try to wean down the midodrine and see how he does Assessment & Plan (05/31/2024 5:13 PM EDT): Currently no symptoms concerning for congestive heart failure On examination he does have +1 pitting edema bilateral ankles His PA pressures on his CardioMEMS are slowly increasing, 30/20 (29) today. His PAD was 15 when implanted Not currently weighing himself at home, I have instructed him to resume doing this and call us for weight gain of 3 pounds in a day or 5 pounds in a week Of note the most recent echocardiogram that I can see from 09/06/2023 shows that his LVEF decreased to 40% down from 50-55%. Was also notable for new wall motion abnormalities. There is no record of an updated echocardiogram although the patient seems to think that he had one done in April Diuretic plan Currently taking torsemide 15 mg daily I have asked him to take his diuretic twice daily for the next 4 days and then return to daily dosing Get labs drawn next week GDMT plan Currently on low-dose Entresto He is also on midodrine We will try to wean his midodrine as above Patient/family states that combination of midodrine/Entresto has previously been discussed with Dr. Saleem Will update echocardiogram and patient to follow-up with his primary instrument repair supervisor Dr. Saleem in 3 months to review results Assessment & Plan (10/29/2023 11:30 AM EST): As mentioned he is getting overmedicated both with blood pressure pills and diuretics which we are cutting back as above I will reevaluate with these new doses in 2 months he is going to check a blood pressure log Assessment & Plan (09/13/2023 10:30 AM EST): He has a defibrillator in place followed in our device clinic. Assessment & Plan (06/08/2023 11:55 AM EDT): He is overdue for an echo which I have ordered for him Assessment & Plan (09/07/2022 10:46 AM EST): Euvolemic at this time with no recent hospitalizations for CHF Encounters Date Type Department Care Team Description 04/03/2025 Refill [facility] [address], [address] [place] [id number] Nova Gallardo CNP Medication Refill 03/30/2025 [facility] [address], [address] [place] [address] Nova Gallardo CNP Medication Refill 03/15/2025 Telephone [facility] [address], [address] [place] [address] Cassandra Bacon, MELIDA CardioMEMS: suspect reading 03/09/2025 [facility]ill [facility] [address] [place] [address], [address] [place] [address] Nova Gallardo CNP Medication Refill 02/23/2025 [facility] [address], [address] [place] [address] Cassandra Bacon, MELIDA CardioMEMS: HR Elevated 01/31/2025 [facility] [address], [address] [place] [address] Cassandra Bacon, MELIDA 01/22/2025 [facility] [address], [address] [place] [address] Cassandra Bacon, MELIDA CardioMEMS: Elevated from Last 3 Months Social History Tobacco Use Types Packs/Day Years Used Date Smoking Tobacco: Former Smokeless Tobacco: Never Comments:@ age 32 Alcohol Use Standard Drinks/Week Comments Yes 0 (1 standard drink = 0.6 oz pur e alcohol) 1 drink daily Education Answer Date Recorded Are you interested in more education? Not on gorge e 01/29/2023 Are you concerned about learning? Not on file 01/29/2023 No 01/29/2023 No 01/29/2023 Digital Access Answer Date Recorded No 02/27/2023 No 02/27/2023 Reliable internet access at home? Not on file 02/27/2023 Device with a working camera? Not on file Sex and Gender Information Value Date Recorded Sex Assigned at Male 05/28/2024 7:52 AM EDT Legal Sex Male 5:53 PM EDT Gender Identity Male 05/28/2024 7:52 AM EDT Sexual Orientation Straight 05/28/2024 7: 52 AM EDT Last Filed Vital Signs Vital Sign Reading Time Taken Comments Blood Pressure 112/60 12/11/2024 12:46 PM EDT Pulse 89 12/11/2024 12:46 PM EDT Temperature 36.4 C (97.5 F) 10/06/2023 10:40 AM EST Respiratory Rate 13 10/06/2023 11:55 AM EST Oxygen Saturation 93% 12/11/2024 12:46 PM EDT Inhaled Oxygen Concentration - - Weight 71.8 kg (158 lb 3.2 oz) 12/11/2024 12:46 PM EDT Height 165 cm (5' 4.96 ) 12/11/2024 12:46 PM EDT Body Mass Index 26.36 12/11/2024 12:46 PM EDT Plan of Treatment Upcoming Encounters Date Type Department Care Team (Late st Contact Info) Description 05/01/2025 12:00 PM EDT Office Visit [facility] [address] [place] [address] 3rd Floor, [address] [place] [address] [id number] Roem Saleem DO [address] [facility] [address] [place] [address] [email or web address] Health Maintenance Due Date Last Done Comments DEPRESSION SCREENING 1952 ZOSTER VACCINES (1 of 2) 1990 RSV VACCINE (1 - 1-dose 75+ series) 2015 COVID-19 VACCINE ( season) 2024 08/24/2023, 08/11/2022, 02/02/2022, Additional history exists BLOOD PRESSURE 06/13/2025 12/11/2024 Adult Td,Tdap Booster 07/11/2028 07/11/2018 , 10/01/2008, 10/04/1998 PNEUMOCOCCAL VACCINES (50+ years) Completed 12/06/2017, 04/10/2015, 07/15/2006, Additional history exists HEPATITIS A VACCINES Aged Out No long er eligible based on patient's age to complete this topic HIB VACCINES Aged Out No longer eligi ble based on patient's age to complete this topic MENINGOCOCCAL VACCINES (ACWY) Aged Out No longer eligible based on patient's age to complete this topic MENINGOCOCCAL VACCINES (B) Aged Out N o longer eligible based on patient's age to complete this topic Medical Devices Implanted Type Area Ground Water Technician Device Identifier Shelf Expiration Date Model / Serial / Lot Sensor Pulmonary Artery Delivery System Cardiomems - [id number] Implanted:Qty : 1 on 10/06/2023 by Rome Saleem DO at [facility] Implantable Monitor Left: Lung Kenguru [id number] 11/22/2024 CM PATIENT SYSTEM / [id number] / Pacemaker Pacemaker Chest Wall Prosthetic Joint Bilateral Knees Prosthetic Joint Description:bilat. knees [place] Right Femur Cleveland Right: Femur Screw In Back Screw Back Stent In Left Leg Stent Leg Stent Absolute Pro 7mm 40mm 135cm .035in Otw Vascular Nickel Titanium Self-Expandin g External Iliac Artery Tri Axial Radiopaque Marker Sterile Disp - [id number] Implanted:Qty : 1 on 02/12/2021 by Rome Saleem DO at [facility] Stent DUARTE VASCULAR [id number] 08/03/2022 [id number] Description:DISTAL SFA Insurance MEDICARE PART A & B FOR[facility] PARTIAL HEALTH [place] MEDICARE SUPPLEMENT MEDICARE PART A & B FOR[facility] PARTIAL HEALTH [place] MEDIC[place] SUPPLE[place] MEDICARE PART A & B Member Subscriber Plan / Payer (Ef fective 2006-Present) Name:Arnel Quintana Member ID:[id number] Relation to Subscriber:Self Name:Arnel Quintana Subscriber ID:[id number] Payer ID:[id number] Group ID:Not on file Type:Medicare Address: [facility] [employer] [facility].[address] [phone] FOR[facility]LY [facility] PARTIAL Member Subscriber Plan / Payer (Ef fective 2020-Present) Name:Arnel Quintana Relation to Subscriber:Self Name:Lilian Arnel Payer ID:Not on file Group ID:Not on file Type:Medicaid Address: [address] MEDICARE SUPPLEMENT MEDICARE PART A & B Member Subscriber Plan / Payer (Ef fective 2006-Present) Name:Arnel Quintana Member ID:[id number] Relation to Subscriber:Self Name:Arnel Quintana Subscriber ID:[id number] Payer ID:[id number] Group ID:Not on file Type:Medicare Address: [employer] [address] [place] [phone] HEALTH SAFETY NET PARTIAL MEDICARE SUPPLEMENT MEDICARE PART A & B Member Subscriber Plan / Payer ( fective 2006-Present) Name:Lilian Arnel Member ID:[id number] Relation to Subscriber:Self Name:EdisonsunnyShyla huffvin Subscriber ID:[id number] Payer ID:[id number] Group ID:Not on file Type:Medicare Address: [employer] [address] NET PARTIAL MEDICARE SUPPLEMENT MEDICARE PART A & B FORMERLY [facility] PARTIAL MEDICARE SUPPLEMENT MEDICARE PART A & B [facility]LY [facility] PARTIAL Member Subscriber Plan / Payer (Ef fective 2020-Present) Name:Arnel Quintana Relation to Subscriber:Self Name:EdisonsunnyShyla huffvin Payer ID:Not on file Group ID:Not on file Type:Medicaid Address: [address] MEDICARE SUPPLEMENT MEDICARE PART A & B HEALTH SAFETY NET PARTIAL MEDICARE SUPPLEMENT MEDICARE PART A & B HEALTH SAFETY NET PARTIAL Member Subscriber Plan / Payer (Ef fective 2020-Present) Name:EdisoncamdenShylaArnel Relation to Subscriber:Self Name:EdisoncamdenShylaArnel Payer ID:Not on file Group ID:Not on file Type:Medicaid Address: [facility], [address] MEDICARE SUPPLEMENT Advance Directives For more information, please contact: [phone] (9AM - 5PM Noreen/[facility], Wednesday-Wednesday) * Full Code (Latest Code Status on File) Date Activated Date Inactivated Comments 10/06/2023 7:16 AM Question Answer Comments Code Status Confirmed With: Patient Code Status Communicated To: Other (specify belo w) Code 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 PCP - General Physician Airway Traffic Controller 05/31/24 Additional Source Comments The information contained in this document represents components of the legal health record. It is not the complete legal health record.[facility]
--- OUTSIDE RECORDS SUMMARY | 2025-04-20 12:53 | XMS_ITS | Clinical Summary ---
Author Organization [facility] Facility Address [address] [place] [address] Care Team Providers Care Underwriting Manager Name Role Phone Maggie Franz MD Primary Care Provider [phone] Medications acetaminophen (TYLENOL) 325 MG tablet Take [...] PCV20, or PCV21) 01/31/2018 12/06/2017 Influenza Vaccine (#1) 2025 Pneumococcal Vaccine: Peds ( 0 to 5 Years) and At-Risk Patients (6 to 49 Years) Discontinued 12/06/2017 Insurance Medicare [facility] Medicare [facility] Care Teams Underwriting Manager Relationship Specialty Start Date End Date Maggie Franz MD PCP - General 10/14/20
[2025-04-20 12:58] VITALS: BP 112/62; PULSE 69; O2SAT 96; BMI 24.7
--- NOTE | 2025-04-20 13:09 | MHC.OFFVIS ---
Vital Signs 04/20/25 12:58 Height 5 ft 6 in Weight 153 lb BMI 24.7 BP 112/62 Blood Pressure Location Rt brachial Position Sitting Pulse 69 Pulse Source Pulse Oximeter Pulse Oximetry (%) 96 Oxygen Delivery Method Room Air Intake Visit Reasons: Cough/CT Follow Up Allergies oxycodone Adverse Reaction (Verified 04/20/25 13:04) Hallucinations latex Allergy (Uncoded 04/20/25 13:04) rash Medication List - Last Reconciled 04/20/25 by Yadira Minor LPN acetaminophen (Tylenol) 650 mg PO Q6H PRN aspirin (Adult Aspirin Regimen) 81 mg PO DAILY cetirizine 10 mg PO DAILY clopidogrel 75 mg PO DAILY cyanocobalamin (vitamin B-12) 1,000 mcg PO DAILY empagliflozin (Jardiance) 10 mg PO DAILY ezetimibe 10 mg PO Q OTHER DAY ferrous sulfate 325 mg PO DAILY gabapentin 300 mg PO TID hydromorphone 4 mg PO Q6H PRN levalbuterol HCl 1.25 mg (3 mL) inhalation Q4-6H PRN midodrine 10 mg PO TID multivitamin 1 tab PO DAILY pantoprazole 20 mg PO DAILY rosuvastatin 40 mg PO DAILY sacubitril-valsartan 24-26 mg (Entresto) 1 tab PO BID tobramycin with nebulizer 300 mg/5 mL 300 mg (5 mL) inhalation BID 56 days torsemide 3 mg PO Q OTHER DAY PRN torsemide 20 mg PO DAILY PFSH Medical History (Updated 02/14/25 @ 14:46 by Georgie Markham NP) Other mechanical complication of internal fixation device of vertebrae, initial encounter Discitis of lumbosacral region Osteomyelitis Social History Patient Tobacco Use Status: Former Tobacco user Tobacco use type: Cigarette Cigarette Packs Per Day: 1 Years Smoked: 20 years/ Quit in 1977 Physical Exam Vital Signs: Last Vital Signs BP 112/62 04/20/25 12:58 BMI result Body Mass Index 24.7 Assessment & Plan Assessment & Plan Orders: Orders CT chest wo IV con Today A49.8 - Other bacterial infections of unspecified site, J18.9 - Pneumonia, unspecified organism Medications: Discontinued tobramycin with nebulizer 300 mg/5 mL separate doses by at least 6 hours Discontinued Reason: Patient Completed Course 300 mg (5 mL) inhalation BID 280 mL 0RF 28 days A49.8 - Other bacterial infections of unspecified site Coding
== END 2025-04-20 14:00 | disposition home or self-care (01) ==
LOC: HO.HPSW 12:51
PROVIDERS: PCP Internal Medicine; Visit Provider Nurse Practitioner Family
DX: A49.8 Other bacterial infections of unspecified site (principal); R05.9 Cough, unspecified; Z87.891 Personal history of nicotine dependence
CPT/HCPCS: 99214; G2211

== ENCOUNTER → 2025-04-20 12:51 | Outpatient (BNVA) | payer MEDICARE, OTHER, SELFPAY | PROVIDERS: PCP Internal Medicine; Visit Provider Nurse Practitioner Family | DX: A49.8 Other bacterial infections of unspecified site (principal); R05.9 Cough, unspecified; Z87.891 Personal history of nicotine dependence; Z79.2 Long term (current) use of antibiotics; Z79.82 Long term (current) use of aspirin; Z79.891 Long term (current) use of opiate analgesic; Z79.899 Other long term (current) drug therapy | CPT/HCPCS: 99212 ==

== ENCOUNTER 2025-06-27 12:52 | Outpatient (AMB) | payer MEDICARE, OTHER, SELFPAY ==
--- NOTE | 2025-06-27 13:04 | A.OFFVIS_ITS ---
Vital Signs 06/27/25 13:05 Height 5 ft 6 in Weight 153 lb 2 oz BMI 24.7 BP 140/66 H Blood Pressure Location Rt brachial Position Sitting Pulse 73 Pulse Source Pulse Oximeter Pulse Oximetry (%) 96 Oxygen Delivery Method Room Air Intake Visit Reasons: Cough Allergies oxycodone Adverse Reaction (Verified 06/27/25 13:08) Hallucinations latex Allergy (Uncoded 06/27/25 13:08) rash HPI HPI Cough: Details: Arnel is a pleasant 84-year-old male, former smoker, quit 1979 with 15 parking history, with underlying HFrEF s/p ICD 2020, CKDIII, anemia, hyperlipidemia, hypertension, glaucoma, history of [place] CABG x4 in 2018, 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 He is accompanied by daughter and , ambulating without assistance. He was found to have pseudomonas + sputum culture and failed oral Levaquin. Due to insurance there was a delay in obtaining inhaled Tobramycin, patient completed 1 month with 50% improvement therefore was refilled after 1 month off. Today he presents with minimal improvement and feels symptoms are back to initial symptoms with wheezing, productive cough with yellowish sputum, dyspnea and significant fatigue. [facility] Medical History (Updated 07/02/25 @ 16:01 by Georgie Markham NP) Other mechanical complication of internal fixation device of vertebrae, initial encounter Discitis of lumbosacral region Osteomyelitis Social History Patient Tobacco Use Status: Former Tobacco user Tobacco use type: Cigarette Cigarette Packs Per Day: 1 Years Smoked: 20 years/ Quit in 1977 Review of Systems Const Denies chills, Denies excessive sweating, Denies fever(s), Denies headache(s) and Denies night sweats Eyes Denies dry eyes, Denies irritation and Denies itchy eyes ENT Reports Normal hearing present, Denies headache(s), Denies nasal congestion, Denies nasal discharge, Denies post nasal drip and Denies sore throat Card Denies chest pain, Denies chest pain at rest, Denies chest pain with activity, Denies claudication, Reports dyspnea on exertion, Denies orthopnea and Denies paroxysmal nocturnal dyspnea Resp Reports change in phlegm color, Reports chest congestion, Reports cough, Denies hemoptysis, Denies pain on inspiration, Denies pain with cough, Reports dyspnea on exertion, Denies stridor and Reports wheezing Musc Denies myalgias Neuro Reports Normal hearing present and Denies headache(s) Endo Denies excessive sweating Kris/Lymph Denies lymphadenopathy Aller/Immun Denies itchy eyes, Denies seasonal rhinorrhea and Reports wheezing Physical Exam Vital Signs: Last Vital Signs Pulse 73 06/27/25 13:05 BP 140/66 H 06/27/25 13:05 Pulse Ox 96 06/27/25 13:05 Oxygen Delivery Method Room Air 06/27/25 13:05 BMI result Body Mass Index 24.7 Const General: cooperative, comfortable, no acute distress, well developed and alert Orientation/consciousness: patient oriented x3 HEENT Head: Yes normal to inspection, Yes normocephalic and Yes atraumatic Ears: hearing grossly normal bilaterally and external ears normal Eyes General: appearance normal, both eyes and all related structures Eyelids: Yes eyelids normal Sclerae: sclerae normal EOM: EOMs intact bilaterally Neck Neck: Yes normal visual inspection and Yes no lymphadenopathy Lymphatic: no lymphadenopathy noted Chest Chest palpation & inspection: normal inspection of the chest Resp Effort & Inspection: normal respiratory effort, able to speak in complete sentences, no audible wheezes, Actively coughing Quality: productive, no stridor, not tachypneic, no tripod positioning and no use of accessory muscles Auscultation: rhonchi Cardio Jugular venous distension: no JVD Rate: regular rate Rhythm: regular rhythm Skin Other: warm, dry General skin exam: no rashes or lesions noted Neuro General: patient oriented x3 Cranial nerves: Yes Normal hearing present Cognition (Neuro): normal cognition Extrem Other: 2+ pitting edema BLE Psych Appearance: grossly normal and well kempt Speech and movement: Normal speech and movement present and Clear speech present Affect: normal affect Attitude: cooperative Thought process: Normal thought process present Thought content: Normal thought content present Insight: Good insight present (Psych) Judgement: Good judgement present (Psych) Results Reviewed Results Reviewed: RESULT: Chest 2 Views Frontal and Lat Chest 2 Views Frontal and Lat INDICATION: Cough COMPARISON: Multiple priors, most recent 07/19/2024. FINDINGS: LINES AND TUBES: Triple lead AICD in place. CardioMEMS in place. LUNGS AND PLEURA: Mild haziness overlying the left lower lung and retrocardiac region. No pneumothorax. HEART, MEDIASTINUM AND SHANNON: Heart is normal in size. Multiple sternotomy wires and surgical clips overlying the heart and mediastinum, unchanged. Calcification of the aorta. BONES AND SOFT TISSUES: No acute abnormality. IMPRESSION: Mild haziness overlying the left lower lung and retrocardiac region. Findings may represent atelectasis, small pleural effusion, and/or pneumonia. WSN: [id number] Ordering Physician: Mandi Cain Assessment & Plan Assessment & Plan (1) Pseudomonas aeruginosa infection: Code(s): A49.8 - Other bacterial infections of unspecified site Category: Medical (2) Cough: Code(s): R05.9 - Cough, unspecified Category: Medical (3) Personal history of tobacco use: Code(s): Z87.891 - Personal history of nicotine dependence Category: Social Hx (4) Bronchiectasis: Code(s): J47.9 - Bronchiectasis, uncomplicated Category: Medical Plan Arnel presents with persistent productive cough, wheezing, chest congestion and dyspnea, with significant rhonchi on exam. He has failed oral Levaquin, trialed two courses of Tobramycin and continues to be symptomatic with known Pseudomonas infection. At this time, patient failed oral and nebulized treatment, necessitating IV therapy. Will enter order for Ertapenem IV 1 gram QD x 14 days with PICC line placement. He also has a flutter valve to help with mucous clearance to be used with nebulizer. Will also send for labs to assess overall immune function. All questions were answered and patient is in agreement of plan. Will follow up in 4-6 weeks or sooner if needed. Orders: Orders Immunoglobulin G Subclasses 06/27/25 A49.8 - Other bacterial infections of unspecified site Immunoglobulins,IgG IgA IgM 06/27/25 A49.8 - Other bacterial infections of unspecified site IR cvc insert peripheral Today A49.8 - Other bacterial infections of unspecified site, J47.9 - Bronchiectasis, uncomplicated Medications: New ertapenem 1 g IV DAILY 14 days Coding Level of Care Code Est Pt Level 4 (12940) Complex EM visit Add On G2211 Diagnoses Pseudomonas aeruginosa infection A49.8 Cough R05.9 Personal history of tobacco use Z87.891 Bronchiectasis J47.9
[2025-06-27 13:05] VITALS: BP 140/66; PULSE 73; O2SAT 96; BMI 24.7
--- OUTSIDE RECORDS SUMMARY | 2025-06-27 15:19 | XMS_ITS | Encounter Summary ---
Author Organization [facility] Address [address] [facility] [address] [place] [address] Phone Care Team Providers Care Gas Turbine Powerplant Mechanic Name Role Phone Maggie Franz MD Primary Care Provider [phone] Hemal Ball Primary Care Provider [phone] Encounter Details Date Type Department Care Team (Late st Contact Info) Description 02/12/2021 Procedure Pass [facility] Cardiovascular And Interventional Radiology [address] [place] [address] Social History Tobacco Use Types Packs/Day Years Used Date Smoking Tobacco: Former Smokeless Tobacco: Never Comments:@ age 32 Alcohol Use Standard Drinks/Week Comments Yes 0 (1 standard drink = 0.6 oz pur e alcohol) 1 drink daily Sex and Gender Information Value Date Recorded Sex Assigned at Male 05/28/2024 7:52 AM EDT Legal Sex Male 5:53 PM EDT Gender Identity Male 05/28/2024 7:52 AM EDT Sexual Orientation Straight 05/28/2024 7 :52 AM EDT documented as of this encounter Plan of Treatment Upcoming Encounters Date Type Department Care Team (Latest Contact Info) Description 09/17/2025 11:15 AM EST Ancillary Procedure [facility] [address] [facility] 3rd Floor, [address] [place] [address] Rome Saleem DO [address] [facility] [address] [place] [address] documented as of this encounter Visit Diagnoses Not on filedocumented in this encounter Care Teams Gas Turbine Powerplant Mechanic Relationship Specialty Start Date End Date Maggie Franz MD [address] [place] [address] PCP - General 09/07/17 05/30/24 Hemal Ball PA [address] [address] [email or web address] PCP - General Physician Biodiesel Production Associate 05/31/24 documented as of this encounter Additional Source Comments The information contained in this document represents components of the legal health record. It is not the complete legal health record.[facility]
--- OUTSIDE RECORDS SUMMARY | 2025-06-27 15:19 | XMS_ITS | Clinical Summary ---
Author Organization [facility] Address [address] [facility] [address] [place] [address] Phone Care Team Providers Care Video Intern Name Role Phone Hemal Ball Primary Care Provider [phone] Allergies Active Allergy Reactions Criticality Noted Date [...] into each eye nightly at bedtime. Active pantoprazole (PROTONIX) 40 MG tablet Take 40 mg by mouth daily. Active midodrine (PROAMATINE) 5 MG tablet Take 2 tablets by mouth 3 (three) times a day. Active cetirizine (ZYRTEC) 10 MG tablet 1 tablet Orally Once a day Active cyanocobalamin, vitamin B-12, 100 MCG tablet Take 100 mcg by mouth daily. Active timolol (TIMOPTIC) 0.5 % ophthalmic solution 4 Active calcium carbonate-vitam in D3 1,250 mg (500 mg elemental)-400 units per tablet Take 1 tablet by mouth daily. Active ferrous sulfate 325 mg (65 mg beaver iron) tablet Take 325 mg by mouth 3 (three) times a day with meals. Active alendronate (FOSAMAX) 70 MG tablet Take 70 mg by mouth every 7 days. Take in the morning with a full glass of water, on an empty stomach, and do not take anything else by mouth or lie down for the next 30 min. Active clopidogrel (PLAVIX) 75 mg tabletIndicatio ns:Atherosclero sis of grand ronde tribes coronary artery of grand [place] tribes heart without angina pectoris TAKE 1 TABLET BY MOUTH EVERY DAY 90 tablet 3 4 Active torsemide (DEMADEX) 10 MG tablet TAKE 1 AND 1/2 TABLETS DAILY BY MOUTH 135 tablet 3 5 Active JARDIANCE 10 mg tablet TAKE 1 TABLET BY MOUTH EVERY DAY 30 tablet 3 5 Active ezetimibe (ZETIA) 10 mg tablet Take 1 tablet (10 mg total) by mouth every other day. 45 tablet 3 5 Active sacubitriL-vals niles (ENTRESTO) 24-26 mg per tablet Take 1 tablet by mouth 2 (two) times a day. 180 tablet 3 5 Active Active Problems Problem Noted Date Diagnosed Date HFrEF (heart failure with reduced ejection fract ion) 12/11/2024 Assessment & Plan (05/01/2025 12:09 PM EDT): Clinically euvolemic at this time he does have shortness of breath but this is more than likely due to his ongoing pulmonary infection Assessment & Plan (12/11/2024 1:35 PM EDT): [...] EDT): This is being monitored through the [place] office I did verify that there was an interrogation performed approximately a year ago looks like he only has an appointment scheduled later this year for repeat in person device interrogation Assessment & Plan (05/31/2024 5:29 PM EDT): Patient tells me he did have his FOOD TASTER-D placed in 2019. From what he tells me this was done for primary prevention with his LVEF less than 35% at that time. He is not aware of having ever had shocks delivered. His device is being monitored remotely through the [place] office. We were able to download the recent report dated 05/18/2024. There is no atrial fibrillation noted on this report. ECG today showing an irregular wide-complex rhythm possibly with PVCs. Perhaps some beats just FOOD TASTER pacing versus not. 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 He follows with [facility] vascular for his PVD. 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 He does have an ICD in place. Assessment & Plan (12/11/2024 1:36 PM EDT): Denying any anginal symptoms Continue aspirin/Plavix Continue rosuvastatin 40 mg daily Assessment & Plan (09/12/2024 12:56 PM EST): This patient had bypass surgery in 2017 rendering him symptom-free he does have an [...] less than 70 He had labs at [facility] earlier this year in February showing cholesterol 124, triglycerides 123, HDL 59, LDL 43 Assessment & Plan (05/31/2024 5:10 PM EDT): No symptoms concerning for angina at this time. Continue aspirin/Plavix/statin I have reviewed most recent lipid profile through [facility]. Lipids well-controlled. Should maintain his LDL [...] a defibrillator in place he is a [place] [employer] class III patient with a recurrent hospitalization for heart failure I explained risk benefits and alternatives to him regarding a CardioMEMS implant which we will do at [facility]. Assessment & Plan (09/07/2022 10:46 AM EST): This patient underwent multivessel bypass surgery EF is 35% with an ICD implant he is not having any heart failure or anginal type symptoms and is very stable Biventricular congestive heart failure 2 Assessment & Plan (07/14/2024 1:20 PM EDT): Still denying symptoms of congestive heart failure He does have a FOOD TASTER-D Warm/wet on exam +1 pitting edema bilaterally [...] and patient to follow-up with his primary educational assistant Dr. 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; PVD (peripheral vascular disease); HFrEF (heart failure with reduced ejection fraction); Pure hypercholesterolemia 04/03/2025 Refill [facility] [address], [address] [place] [address] Nova Gallardo CNP Medication Refill 03/30/2025 Refill [facility] [address], [address] [place] [address] Nova Gallardo CNP Medication Refill from Last 3 Months Social History Tobacco Use Types Packs/Day Years Used Date Smoking Tobacco: Former Smokeless Tobacco: Never Tobacco Cessation:Counseling Given: Not Answered Comments:@ age 32 Alcohol Use Standard Drinks/Week [...] Sign Reading Time Taken Comments Blood Pressure 110/58 05/01/2025 11:35 AM EDT Pulse 89 12/11/2024 12:46 PM EDT Temperature 36.4 C (97.5 F) 10/06/2023 10:40 AM EST Respiratory Rate 13 10/06/2023 11:55 AM EST Oxygen Saturation 93% 12/11/2024 12:46 PM EDT Inhaled Oxygen Concentration - - Weight 70.8 kg (156 lb) 05/01/2025 11:35 AM EDT Height 165 cm (5' 4.96 ) 05/01/2025 11:35 AM EDT Body Mass Index 25.99 05/01/2025 11:35 AM EDT Plan of Treatment Upcoming Encounters Date Type Department Care Team (Latest Contact Info) Description 09/17/2025 11:15 AM EST Ancillary Procedure [facility] [address] [facility] 3rd Floor, [address] [place], [place] [id number] Rome Saleem DO [address] [facility] [address] [place] [address] [email or web address] Health Maintenance Due Date Last Done Comments DEPRESSION SCREENING 1952 ZOSTER VACCINES (1 of 2) 1990 RSV VACCINE (1 - 1-dose 75+ series) 2015 INFLUENZA VACCINE (#1) 2025 , 08/11/2022, 07/27/2021, Additional history exists COVID-19 VACCINE ( season) 2025 08/24/2023, 08/11/2022, 02/02/2022, Additional history exists BLOOD PRESSURE 11/01/2025 05/01/2025 Adult Td,Tdap Booster 07/11/2028 07/11/2018 , 10/01/2008, [...] this topic Medical Devices Implanted Type Area Air Bag Stripper Device Identifier Shelf Expiration Date Model / Serial / Lot Sensor Pulmonary Artery Delivery System Cardiomems - [id number] Implanted:Qty : 1 on 10/06/2023 by Rome Saleem DO at [facility] Implantable Monitor Left: Lung [employer] [id number] 11/22/2024 CM PATIENT SYSTEM / [id number] / Pacemaker Pacemaker Chest Wall Prosthetic Joint Bilateral Knees Prosthetic Joint Description:bilat. knees [place] Right Femur Cleveland Right: Femur Screw In Back Screw Back Stent In Left Leg Stent Leg Stent Absolute Pro 7mm 40mm 135cm .035in Otw Vascular Nickel Titanium Self-Expandin g External Iliac Artery Tri Axial Radiopaque Marker Sterile Disp - [id number] Implanted:Qty : 1 on 02/12/2021 by Rome Saleem DO at [facility] Stent [employer]ARTE [employer]ULAR [id number] 08/03/2022 [id number] / [id number] Description:DISTAL SFA Insurance MEDICARE PART A & B HEALTH SAFETY NET PARTIAL Member Subscriber Plan / Payer (Ef fective 2020-Present) Name:Anrel Quintana Relation to Subscriber:Self Name:Arnel Quintana Payer ID:Not on file Group ID:Not on file Type:Medicaid Address: [address] MEDICARE SUPPLEMENT MEDICARE PART A & B HEALTH SAFETY NET PARTIAL [place] MEDICARE SUPPLEMENT MEDICARE PART A & B [facility] PARTIAL Member Subscriber Plan / Payer (Ef fective 2020-Present) Name:Arnel Quintana Relation to Subscriber:Self Name:Arnel Quintana Payer ID:Not on file Group ID:Not on file Type:Medicaid Address: [address] MEDICARE SUPPLEMENT MEDICARE PART A & B [employer] [facility] PARTIAL Member Subscriber Plan / Payer (Ef fective 2020-Present) Name:Arnel Quintana Relation to Subscriber:Self Name:Arnel Quintana Payer ID:Not on file Group ID:Not on file Type:Medicaid Address: [address] MEDICARE SUPPLEMENT MEDICARE PART A & B [employer] NET PARTIAL [place]ALTH [place] MEDICARE SUPPLEMENT MEDICARE PART A & B [facility] PARTIAL [place]ALTH [place] MEDICARE SUPPLEMENT MEDICARE PART A & B PARTIAL Member Subscriber Plan / Payer (Ef fective 2020-Present) Name:Arnel Quintana Relation to Subscriber:Self Name:Arnel Quintana Payer ID:Not on file Group ID:Not on file Type:Medicaid Address: [address] MEDICARE SUPPLEMENT MEDICARE PART A & B HEALTH SAFETY NET PARTIAL MEDICARE SUPPLEMENT MEDICARE PART A & B HEALTH SAFETY NET PARTIAL Member Subscriber Plan / Payer (Ef fective 2020-Present) Name:Arnel Quintana Relation to Subscriber:Self Name:Arnel Quintana Payer ID:Not on file Group ID:Not on file Type:Medicaid Address: [facility], [address] MEDICARE SUPPLEMENT Advance Directives For more information, please contact: [phone] (9AM - 5PM Noreen/[facility], Wednesday-Wednesday) * Full Code (Latest Code Status on File) Date Activated Date Inactivated Comments 10/06/2023 7:16 AM Question Answer Comments Code Status Confirmed With: Patient Code Status Communicated To: Other (specify belo w) Code Discussion Comments: In analytical laboratory technician * Full Code Date Activated Date Inactivated Comments 02/12/2021 6:40 AM 10/06/2023 7:16 AM Question Answer Comments Code Status Confirmed With: Other (specify below ) Code Discussion Comments: Transcribed from order Care Teams Video Intern Relationship Specialty Start Date End Date Hemal Ball PA [address] [facility] [address] [place] [address] [email or web address] PCP - General Physician Oil Dispenser 05/31/24 Additional Source Comments The information contained in this document represents components of the legal health record. It is not the complete legal health record.[facility]
--- OUTSIDE RECORDS SUMMARY | 2025-06-27 15:19 | XMS_ITS | Encounter Summary ---
Author Organization [facility] Address [address] [facility] [address] [place] [address] Phone Care Team Providers Care Hse Manager Name Role Phone Maggie Franz MD Primary Care Provider [phone] Hemal Ball Primary Care Provider [phone] Encounter Details Date Type Department Care Team (Late st Contact Info) Description 09/07/2017 Procedure Pass [facility] Cardiovascular And Interventional Radiology [address] [place] [address] Social History Tobacco Use Types Packs/Day Years [...] Description 09/17/2025 11:15 AM EST Ancillary Procedure [facility] [address] [facility] 3rd Floor, [address] [place] [address] Rome Saleem DO [address] [facility] [address] [place] [address] documented as of this encounter Visit Diagnoses Not on filedocumented in this encounter Care Teams Hse Manager Relationship Specialty Start Date End Date Maggie Franz MD [address] [place] [address] PCP - General 09/07/17 05/30/24 Hemal Ball PA [address] [address] [email or web address] PCP - General Physician Solar Crew Member 05/31/24 documented as of this encounter Additional Source Comments The information contained in this document represents components of the legal health record. It is not the complete legal health record.[facility]
--- OUTSIDE RECORDS SUMMARY | 2025-06-27 15:19 | XMS_ITS | Encounter Summary ---
Author Organization [facility] Address [address] [place] [address] Phone Care Team Providers Care Instrument Processing Tech Name Role Phone Maggie Franz MD Primary Care Provider [phone] Hemal Ball Primary Care Provider [phone] Encounter Details Date Type Department Care Team (Late st Contact Info) Description 07/30/2020 [facility] [address], [address] [place] [address] Nat Cantrell MD [address] [place] [address] [email or web address] Social History Tobacco Use Types Packs/Day Years [...] Orientation Straight 05/28/2024 7: 52 AM EDT documented as of this encounter Plan of Treatment Upcoming Encounters Date Type Department Care Team (Latest Contact Info) Description 09/17/2025 11:15 AM EST Ancillary Procedure [facility] [address], [address] [place] [address] Rome Saleem DO [address] [facility] [address] [place] [address] [email or web address] documented as of this encounter Visit Diagnoses Not on filedocumented in this encounter Care Teams Instrument Processing Tech Relationship Specialty Start Date End Date Maggie Franz MD [address] [place] [address] PCP - General 09/07/17 05/30/24 Hemal Ball PA [address] [facility] [address] [place] [address] PCP - General Physician Mechanical Maintenance Instructor 05/31/24 documented as of this encounter Additional Source Comments The information contained in this document represents components of the legal health record. It is not the complete legal health record.[facility]
--- OUTSIDE RECORDS SUMMARY | 2025-06-27 15:19 | XMS_ITS ---
[facility] Name [facility] Care Team Organization Name Specialty Phone Email Start Date End Da te [facility] Maggie Franz Primary Care 08/11/2022 4
--- OUTSIDE RECORDS SUMMARY | 2025-06-27 15:19 | XMS_ITS | Encounter Summary ---
Author Organization [facility] Address [address] [place] [address] Phone Care Team Providers Care Appliquer Name Role Phone Hemal Ball Primary Care Provider [phone] Encounter Details Date Type Department Care Team (Late st Contact Info) Description 05/31/2024 Procedure Pass [facility] [place] [address] [place] [address] Social History Tobacco Use Types Packs/Day Years [...] Description 09/17/2025 11:15 AM EST Ancillary Procedure [facility] [address], [address] [place] [address] Rome Saleem, DO [address] [facility] [address] [place] [address] [email or web address] documented as of this encounter Visit Diagnoses Not on filedocumented in this encounter Care Teams Appliquer Relationship Specialty Start Date End Date Hemal Ball PA [address] [place] [address] [email or web address] PCP - General Physician Journeyman Pipe Fitter 05/31/24 documented as of this encounter Additional Source Comments The information contained in this document represents components of the legal health record. It is not the complete legal health record.[facility]
--- OUTSIDE RECORDS SUMMARY | 2025-06-27 15:19 | XMS_ITS | Encounter Summary ---
Author Organization [facility] Address [address] [address] Phone Care Team Providers Care Pest Management Supervisor Name Role Phone Yocasta Cary MD Primary Care Provider [phone] Encounter Details Date Type Department Care Team (Late st Contact Info) Description 06/24/2025 Telephone [facility] [address] [place] [phone] Madai Dacosta MD [address] [address] Social History Tobacco Use Types Packs/Day Years [...] on file Sexual Orientation Not on file documented as of this encounter Plan of Treatment Upcoming Encounters Date Type Department Care Team (Late st Contact Info) Description 09/04/2025 1:30 PM EST Office Visit [facility] [address] [address] David Oviedo MD [address] [address] documented as of this encounter Visit Diagnoses Not on filedocumented in this encounter Care Teams Pest Management Supervisor Relationship Specialty Start Date End Date Yocasta Cary MD [address] [place] [address] PCP - General Internal Medicine 05/08/25 documented as of this encounter
--- OUTSIDE RECORDS SUMMARY | 2025-06-27 15:19 | XMS_ITS | Encounter Summary ---
Author Organization [facility] Address [address] [address] Phone Care Team Providers Care Soft Sugar Cutter Name Role Phone Yocasta Cary MD Primary Care Provider [phone] Encounter Details Date Type Department Care Team (Late st Contact Info) Description 05/30/2025 Office Communication [facility] [address] [address] David Oviedo MD [address] [address] Social History Tobacco Use Types [...] encounter Miscellaneous Notes * Telephone Encounter - David Oviedo MD - 05/30/2025 6:49 PM EDT Please sen copy of my note today to Dr Saleem ( [facility]) Dr Georgie Markham at [facility] Dr Saleh at [facility] documented in this encounter Plan of Treatment Upcoming Encounters Date Type Department Care Team (Late st Contact Info) Description 09/04/2025 1:30 PM EST Office Visit [facility] [address] [address] David Oviedo MD [address] [address] documented as of this encounter Visit Diagnoses Not on filedocumented in this encounter Care Teams Soft Sugar Cutter Relationship Specialty Start Date End Date Yocasta Cary MD [address] [place] [address] PCP - General Internal Medicine 05/08/25 documented as of this encounter
--- OUTSIDE RECORDS SUMMARY | 2025-06-27 15:19 | XMS_ITS | Encounter Summary ---
Author Organization [facility] Address [address] [facility] [address] [place] [address] Phone Care Team Providers Care Travel Cota Name Role Phone Maggie Franz MD Primary Care Provider [phone] Hemal Ball Primary Care Provider [phone] Encounter Details Date Type Department Care Team (Late st Contact Info) Description 09/30/2017 Procedure Pass [facility] [address] [place] [address] Social History Tobacco Use Types Packs/Day Years [...] Description 09/17/2025 11:15 AM EST Ancillary Procedure [facility] [address] [facility] 3rd Floor, [address] [place] [address] Rome Saleem DO 22 [facility] [address] [place] [address] documented as of this encounter Visit Diagnoses Not on filedocumented in this encounter Care Teams Travel Cota Relationship Specialty Start Date End Date Maggie Franz MD [address] [place] [address] PCP - General 09/07/17 05/30/24 Hemal Ball PA [address] [address] [email or web address] PCP - General Physician Assembler Clip On Sunglasses 05/31/24 documented as of this encounter Additional Source Comments The information contained in this document represents components of the legal health record. It is not the complete legal health record.[facility]
--- OUTSIDE RECORDS SUMMARY | 2025-06-27 15:19 | XMS_ITS | Clinical Summary ---
Author Organization [facility] Address [address] [address] Phone Care Team Providers Care Auxiliary Equipment Tender Name Role Phone Yocasta Cary MD Primary Care Provider [phone] Allergies Active Allergy Reactions Criticality Noted Date Comments Latex Other (see comments),Rash Low 12/11/2020 Level of certainty: Moderately Certain Other reaction(s): Rash/Dermatitis Oxycodone 09/12/2024 Other Reaction(s): weird/feeling drugged and spacey Oxycodone-Acetaminoph en Other (see comments) 09/07/2022 Level of certainty: Moderately Certain; Other Reaction(s): Confusion/delirium Medications acetaminophen (TYLENOL) 325 MG tablet Take [...] day Do not crush or chew. Active sacubitril-vals niles (Entresto) 24-26 MG per tablet Take 1 tablet by mouth in the morning and 1 tablet in the evening. Active cetirizine (ZyrTEC) 10 MG tablet 1 tablet Orally Once a day 0 Active Cyanocobalamin (VITAMIN B-12 CR PO) Take by mouth Active Ferrous Lhnhrrnxv-W-Kzi ic Acid (IRON-C PO) Take 65 mg by mouth Active Empagliflozin (Jardiance) 10 MG tablet Take 10 mg by mouth 1 (one) time each day in the morning Active levalbuterol (XOPENEX) 1.25 MG/3ML nebulizer solution Take 1 ampule by nebulization in the morning and 1 ampule in the evening. 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 05/30/2025 Idiopathic osteoporosis 05/30/2025 Gallbladder absent 05/30/2025 History of coronary artery bypass grafting 05/30 Chronic hypotension 05/30/2025 Current drinker 05/30/2025 Epigastric pain 05/30/2025 Ex-cigarette smoker 05/30/2025 Fall 05/30/2025 Biliary calculus 05/30/2025 Bilateral tinnitus 05/30/2025 Stage 3a chronic kidney disease 05/30/2025 Renal osteodystrophy 05/30/2025 Chronic vascular insufficiency of intestine 04/2025 Automatic implantable cardiac defibrillator in s itu 05/31/2024 Alcohol abuse 07/30/2023 Coronary arteriosclerosis 07/30/2023 Cholelithiasis with cholecystitis 07/30/2023 Degenerative joint disease involving knee 2022 Essential (primary) hypertension 07/30/2023 Left bundle-branch block 07/30/2023 Obesity 07/30/2023 Old myocardial infarction 07/30/2023 Fracture of femur 07/11/2018 Overview (05/30/2025): orif distal right femurfracture 06/21 Biventricular congestive heart failure 8 Overview (05/30/2025): Post op CABG History of squamous cell carcinoma 02/21/2015 Overview (05/30/2025): 08/2013 History of total knee arthroplasty 06/10/2010 Overview (05/30/2025): Left knee 05/13 Right knee 01/12 Carotid artery stenosis 01/07/2010 Overview (05/30/2025): RAFAEL 80-99% stenosis, 08/15- endarterectomy LICA 49% stenosis Contact dermatitis and other eczema, unspecified cause 10/02/2005 Pure hypercholesterolemia 10/01/2005 Encounters Date Type Department Care Team Description 06/24/2025 Telephone [facility] [address] [address] Madai Dacosta MD 05/30/2025 3:45 PM EDT Office Visit [facility] [address] [phone] David Oviedo MD Stage 3a chronic kidney disease (HCC) (Primary Dx); Renal osteodystrophy 05/30/2025 Office Communication [facility] [address] [address] David Oviedo MD from Last 3 Months Immunizations Immunization Administration Dates Next Due Influenza (IM) Preservative Free 014,06/23/2013,08/29/2012,08/20/2011 ,08/15/2010,10/01/2008,08/23/2007, 6,10/06/2005 Influenza, Trivalent, Adjuvanted 07/08/2020,07/05,07/11/2018 Pfizer SARS-COV-2 07/01/2021,11/29/2020,11/08/19 21 Pneumococcal Conjugate 13-Valent 12/06/2017,05/2015 Pneumococcal Polysaccharide 07/15/2006, 9 Td, Unspecified 07/11/2018,10/01/2008,10/04/1998 Family History Medical History Relation Comments Heart [...] on file Sexual Orientation Not on file Last Filed Vital Signs Vital Sign Reading Time Taken Comments Blood Pressure 110/58 05/30/2025 4:00 PM EDT Pulse 68 05/30/2025 4:00 PM EDT Temperature - - Respiratory Rate - - Oxygen Saturation 90% 05/30/2025 4:00 PM EDT Inhaled Oxygen Concentration - - Weight 69.1 kg (152 lb 6.4 oz) 05/30/2025 4:00 P M EDT Height - - Body Mass Index - - Plan of Treatment Upcoming Encounters Date Type Department Care Team (Late st Contact Info) Description 09/04/2025 1:30 PM EST [facility] [address] [address] David Oviedo MD [address] [phone] Health Maintenance Due Date Last Done Comments Influenza Vaccine (#1) 2025 0, 07/28/2019, 07/11/2018, Additional history exists Pneumococcal Vaccine: 50+ Years Completed 12/06/2017, 04/10/2015, 07/15/2006, Additional history exists Pneumococcal Vaccine: Peds (0 to 5 Years) and At-Risk Patients (6 to 49 Years) Discontinued 12/06/2017, 04/10/2015, 07/15/2006, Additional history exists Hepatitis B Vaccine Aged Out No longe r eligible based on patient's age to complete this topic Procedures Procedure Name Priority Date/Time Associated Diagnosis Comments MAGNESIUM Routine 06/23/2025 9:55 AM EDT Stage 3a chronic kidney disease (HCC) Renal osteodystrophy CBC Routine 06/23/2025 9:55 AM EDT Stage 3a chronic kidney disease (HCC) Renal osteodystrophy VITAMIN D 25 HYDROXY Routine 06/23/2025 9:55 AM EDT Stage 3a chronic kidney disease (HCC) Renal osteodystrophy PROTEIN / CREATININE RATIO, URINE Routine 06/23/2025 9:55 AM EDT Stage 3a chronic kidney disease (HCC) Renal osteodystrophy URINE ALBUMIN / CREATININE RATIO Routine 06/23/2025 9:55 AM EDT Stage 3a chronic kidney disease (HCC) Renal osteodystrophy URINALYSIS WITH MICROSCOPIC Routine 06/23/2025 9:55 AM EDT Stage 3a chronic kidney disease (HCC) Renal osteodystrophy RENAL FUNCTION PANEL Routine 06/23/2025 9:55 AM EDT Stage 3a chronic kidney disease (HCC) Renal osteodystrophy PTH, INTACT Routine 06/23/2025 9:55 AM EDT Stage 3a chronic kidney disease (HCC) Renal osteodystrophy MICROSCOPIC EXAMINATION - DO NOT USE Routine 06/23/2025 9:55 AM EDT ALT EXT LABS Routine 05/24/2025 ALT EXT LABS Routine 04/28/2025 from Last 3 Months Results * Microscopic Examination (06/23/2025 9:55 AM EDT) WBC, Urine None seen 0 - 5 /hpf [facility] RBC, Urine None seen 0 - 2 /hpf [facility] Squamous Epithelial, Urine 0-10 0 - 10 /hpf [facility] Casts None seen None seen /lpf [facility] Bacteria, Urine None seen None seen/Few [facility] 06/23/2025 9:55 AM EDT 06/23/2025 David Oviedo MD LAB MICROBIOLOGY - GENERAL OR DERABLES Final Result Performing Organization Address [facility]/ZIP Co de Phone Number ContactMonkey [facility] [address] [place] [address] * (ABNORMAL) Protein, Total, Random Urine w/Creatinine (Protein/Creat Ratio) (06/23/2025 9:55 AM EDT) Creatinine, Ur 11.7 Not Estab. mg/dL [facility] Protein, Ur 11.7 Not Estab. mg/dL [facility] Urine Protein/Creati nine Ratio 1,000(H) 0 - 200 mg/g creat [facility] Urine Urine specimen obtained by clean catch procedure / Unknown 06/23/2025 9:55 AM EDT 06/23/2025 David Oviedo MD LAB URINE ORDERABLES Final Re sult Performing Organization Address [facility]/ZIP Co de Phone Number [facility] [address] [place] [address] * (ABNORMAL) Urine Albumin / Creatinine Ratio (06/23/2025 9:55 AM EDT) Albumin, Urine 32.6 Not Estab. ug/mL [facility] Albumin/Creatin ine Ratio 279(H) 0 - 29 mg/g creat [facility] Comment: Normal: 0 - 29 Moderately increased: 30 - 300 Severely increased: >300 Urine Urine specimen obtained by clean catch procedure / Unknown 06/23/2025 9:55 AM EDT 06/23/2025 David Oviedo MD LAB URINE ORDERABLES Final Re sult [facility] [address] [place] [address] * (ABNORMAL) Vitamin D 25 Hydroxy (06/23/2025 9:55 AM EDT) Vitamin D, 25-OH, Total 16.4(L) 30.0 - 100.0 ng/mL [facility] Comment: Vitamin D deficiency has been defined by the [place] of Medicine and an Endocrine Society practice guideline as a level of serum 25-OH vitamin D less than 20 ng/mL (1,2). The Endocrine Society went on to further define vitamin D insufficiency as a level between 21 and 29 ng/mL (2). 1. IOM ([place] of Medicine). 2010. Dietary reference intakes for calcium and D. [place]: The National Academies Press. 2. Jose MF, Bar DUMAS, Vi NICHOLSON, et al. Evaluation, treatment, and prevention of vitamin D deficiency: an Endocrine Society clinical practice guideline. JCEM. 2010; 96(7):1911-30. Blood Venous blood / Unknown 06/23/2025 9:55 AM EDT 06/23/2025 David Oviedo MD LAB BLOOD ORDERABLES Final Re sult Performing Organization Address City/[facility]/ZIP Co de Phone Number [facility] [address] [place] [address] * (ABNORMAL) Urinalysis with microscopic (06/23/2025 9:55 AM EDT) Specific [place], Urine 1.009 1.005 - 1.030 [facility] pH Urine 6.0 5.0 - 7.5 [facility] [phone] Color, Urine Yellow Yellow [facility] [phone] Appearance Urine Clear Clear [facility] WBC Esterase Urine Negative Negative [facility] [phone] Protein, Ur Trace Negative/Tra ce [facility] Glucose, Ur 1+(A) Negative [facility] Ketones, Urine Negative Negative [facility] Blood Urine Negative Negative [facility] Bilirubin Urine Negative Negative [facility] Urobilinogen Urine 0.2 0.2 - 1.0 mg/dL [facility] Nitrite, Urine Negative Negative [facility] Microscopic Examination Comment [facility] Comment:Microscopic follows if indicated. Other Microsc. Observations See below: [facility] Comment:Microscopic was roni cated and was performed. Urine Urine specimen obtained by clean catch procedure / Unknown 06/23/2025 9:55 AM EDT 06/23/2025 Narrative [facility] - 06/25/2025 12:05 AM EDT Specimen Comment: Test(s) Potassium called to edward on 06/24/2025 at 13:22 Specimen Comment: EST us David Oviedo MD LAB URINE ORDERABLES Final Re sult [facility] [address] [place] [address] * (ABNORMAL) CBC (06/23/2025 9:55 AM EDT) WBC 9.6 3.4 - 10.8 x10E3/uL [facility] RBC 3.67(L) 4.14 - 5.80 x10E6/uL [facility] Hemoglobin 11.5(L) 13.0 - 17.7 g/dL [facility] Hematocrit 37.3(L) 37.5 - 51.0 % [facility] MCV 102(H) 79 - 97 fL [facility] MCH 31.3 26.6 - 33.0 pg [facility] MCHC 30.8(L) 31.5 - 35.7 g/dL [facility] RDW 14.3 11.6 - 15.4 % [facility] Platelets 309 150 - 450 x10E3/uL [facility] Blood Venous blood / Unknown 06/23/2025 9:55 AM EDT 06/23/2025 David Oviedo MD LAB BLOOD ORDERABLES Final Re sult Performing Organization Address City/[facility]/ZIP Co de Phone Number [facility] [address] [place] [address] * PTH, Intact (06/23/2025 9:55 AM EDT) PTH 57 15 - 65 pg/mL [facility] Blood Venous blood / Unknown 06/23/2025 9:55 AM EDT 06/23/2025 David Oviedo MD LAB BLOOD ORDERABLES Final Re sult Performing Organization Address City/[facility]/ZIP Co de Phone Number [facility] [address] [place] [address] * (ABNORMAL) Magnesium (06/23/2025 9:55 AM EDT) Magnesium 1.4(L) 1.6 - 2.3 mg/dL [facility] Blood Venous blood / Unknown 06/23/2025 9:55 AM EDT 06/23/2025 David Oviedo MD LAB BLOOD ORDERABLES Final Re sult [facility] [address] [place] [address] * (ABNORMAL) Renal Function Panel (06/23/2025 9:55 AM EDT) Glucose 90 70 - 99 mg/dL [facility] BUN 40(H) 8 - 27 mg/dL [facility] Creatinine 1.78(H) 0.76 - 1.27 mg/dL [facility] eGFR CKD-EPI CR 2020 37(L) >59 mL/min/1.7 3 [facility] BUN/Creatinine Ratio 22 10 - 24 [facility] Sodium 145(H) 134 - 144 mmol/L [facility] Potassium 6.1(>) 3.5 - 5.2 mmol/L [facility] Comment:Client Requested Fla g Chloride 110(H) 96 - 106 mmol/L [facility] Bicarbonate (CO2) 17(L) 20 - 29 mmol/L [facility] Calcium 9.5 8.6 - 10.2 mg/dL [facility] Phosphorus 3.5 2.8 - 4.1 mg/dL [facility] Albumin 4.0 3.7 - 4.7 g/dL [facility] Blood Venous blood / Unknown 06/23/2025 9:55 AM EDT 06/23/2025 David Oviedo MD LAB BLOOD ORDERABLES Final Re sult [facility] [address] [place] [address] * (ABNORMAL) ALT EXT LABS (05/24/2025) Only the most recent of2 resultswithin the time period is included. WBC 12.2(A) 3.3 - 10.0 10*3/ML Red Blood Cell Count 3.81 Hemoglobin 11.8(A) 13.5 - 17.5 Hematocrit 38.3(A) 41.0 - 53.0 Platelets 308 150 - 399 10*3/UL Spec Grav, UA 1.010 05/24/2025 us Historical Provider LAB BLOOD ORDERABLES Olive l Result from Last 3 Months Insurance Medicare [facility] Medicare [facility] Care Teams Auxiliary Equipment Tender Relationship Specialty Start Date End Date Yocasta Cary MD [address] [place] [address] PCP - General Internal Medicine 05/08/25
--- OUTSIDE RECORDS SUMMARY | 2025-06-27 15:19 | XMS_ITS | Encounter Summary ---
Author Organization [facility] Address [address] [place] [address] Phone Care Team Providers Care Hollow Handle Knife Assembler Name Role Phone Maggie Franz MD Primary Care Provider [phone] Hemal Ball Primary Care Provider [phone] Encounter Details Date Type Department Care Team (Late st Contact Info) Description 10/06/2023 Procedure Pass [facility] [address] [place] [address] Social History Tobacco Use Types Packs/Day Years [...] AM EDT documented as of this encounter Functional Status * Calculated C-SSRS Risk Score (Lifetime/Recent) Answer Date of Assessment Author No Risk Indicated 10/06/2023 7:16 AM EST Marion Nichols RN * [place] Suicide Severity Rating Scale (Screener/Recent Self-Report) Question Answer Date of Assessment Author 2. Non-Specific Active Suici oseas Thoughts (Past 1 Month) No 10/06/2023 7:16 AM EST Lizy Tuttle RN documented as of this encounter Plan of Treatment Upcoming Encounters Date Type Department Care Team (Latest Contact Info) Description 09/17/2025 11:15 AM EST Ancillary Procedure [facility] [address] [facility] 3rd Floor, [address] [place] [address] Rome Saleem DO [address] [facility] [address] [place] [address] [email or web address] documented as of this encounter Visit Diagnoses Not on filedocumented in this encounter Care Teams Hollow Handle Knife Assembler Relationship Specialty Start Date End Date Maggie Franz MD [address] [place] [address] PCP - General 09/07/17 05/30/24 Hemal Ball PA [address] [facility] [address] [place] [address] [email or web address] PCP - General Physician Seo Executive 05/31/24 documented as of this encounter Additional Source Comments The information contained in this document represents components of the legal health record. It is not the complete legal health record.[facility]
== END 2025-06-27 14:15 | disposition home or self-care (01) ==
LOC: HO.HPSW 12:53
PROVIDERS: PCP Internal Medicine; Visit Provider Nurse Practitioner Family
DX: A49.8 Other bacterial infections of unspecified site (principal); R05.9 Cough, unspecified; Z87.891 Personal history of nicotine dependence; J47.9 Bronchiectasis, uncomplicated
CPT/HCPCS: 99214; G2211

== ENCOUNTER → 2025-06-27 12:52 | Outpatient (BNVA) | payer MEDICARE, OTHER, SELFPAY | PROVIDERS: PCP Internal Medicine; Visit Provider Nurse Practitioner Family | DX: A49.8 Other bacterial infections of unspecified site (principal); R05.9 Cough, unspecified; Z87.891 Personal history of nicotine dependence; J47.9 Bronchiectasis, uncomplicated | CPT/HCPCS: 99212 ==

== ENCOUNTER 2025-07-10 13:36 | Outpatient (REF) | payer MEDICARE, OTHER, SELFPAY ==
--- NOTE | ~2025-07-10 | IR_ITS ---
PROCEDURE: IR INSERTION OF PICC CLINICAL INFORMATION: Long-term IV antibiotic requirement COMPARISON: None available. TECHNIQUE: Procedure and recent benefits including bleeding, infection and blood clot were discussed with the patient and informed consent was obtained. All elements of maximal sterile barrier technique followed including use of cap, mask, sterile gown, sterile gloves, a sterile full body drape and hand hygiene. Also followed skin preparation with 2% chlorhexidine for cutaneous antisepsis, and sterile ultrasound preparation with sterile gel and probe cover when applicable. Real-time ultrasound guidance was performed for venous access and patency information. A formal ultrasound picture was recorded. Right upper arm was prepped and draped in the usual sterile fashion. Skin and soft tissues were anesthetized with 1% lidocaine plain. Using ultrasound guidance and a 5 Romanian micropuncture system, right brachial vein access was obtained. Over an 018 wire, a 5 Romanian single lumen PICC line was positioned. Catheter length is 36 cm. Catheter tip projects over the SVC. FINDINGS: Right upper extremity PICC line with tip projecting over the SVC. IR/IR cvc insert peripheral IMPRESSION: Right upper extremity PICC line with tip projecting over the SVC. Electronically signed by: Hafsa Haskins MD 07/10/2025 03:30 PM EDT
--- NOTE | ~2025-07-10 | IR_ITS ---
PROCEDURE: IR INSERTION OF PICC CLINICAL INFORMATION: Long-term IV antibiotic requirement COMPARISON: None available. TECHNIQUE: Procedure and recent benefits including bleeding, infection and blood clot were discussed with the patient and informed consent was obtained. All elements of maximal sterile barrier technique followed including use of cap, mask, sterile gown, sterile gloves, a sterile full body drape and hand hygiene. Also followed skin preparation with 2% chlorhexidine for cutaneous antisepsis, and sterile ultrasound preparation with sterile gel and probe cover when applicable. Real-time ultrasound guidance was performed for venous access and patency information. A formal ultrasound picture was recorded. Right upper arm was prepped and draped in the usual sterile fashion. Skin and soft tissues were anesthetized with 1% lidocaine plain. Using ultrasound guidance and a 5 Estonian micropuncture system, right brachial vein access was obtained. Over an 018 wire, a 5 Estonian single lumen PICC line was positioned. Catheter length is 36 cm. Catheter tip projects over the SVC. FINDINGS: Right upper extremity PICC line with tip projecting over the SVC. IR/IR us guide venous access IMPRESSION: Right upper extremity PICC line with tip projecting over the SVC. Electronically signed by: Hafsa Haskins MD 07/10/2025 03:30 PM EDT
--- OUTSIDE RECORDS SUMMARY | 2025-07-10 16:46 | XMS_ITS | Encounter Summary ---
Author Organization [facility] Address [address] [place] [address] Phone Care Team Providers Care Inventory Specialist Manager Name Role Phone Hemal Ball Primary Care Provider [phone] Encounter Details Date Type Department Care Team (Late st Contact Info) Description 05/31/2024 Procedure Pass Echo Lab [place] [address] [place] [address] Social History Tobacco Use Types Packs/Day Years [...] Care Team (Late st Contact Info) Description 09/17/2025 11:15 AM EST Office Visit [facility] [address], [address] [place] [address] Rome Saleem, [address] [facility] [address] [place] [address] [email or web address] documented as of this encounter Visit Diagnoses Not on filedocumented in this encounter Care Teams Inventory Specialist Manager Relationship Specialty Start Date End Date Hemal Ball PA [address] [place] [address] [email or web address] PCP - General Physician Nurse Esthetician 05/31/24 documented as of this encounter Additional Source Comments The information contained in this document represents components of the legal health record. It is not the complete legal health record.[facility]
--- OUTSIDE RECORDS SUMMARY | 2025-07-10 16:46 | XMS_ITS | Clinical Summary ---
Author Organization [facility] Address [address] [address] Phone Care Team Providers Care County Library Director Name Role Phone Yocasta Cayr MD Primary Care Provider [phone] Allergies Active Allergy Reactions Criticality Noted Date [...] CR PO) Take by mouth Active Ferrous Rdksqygyv-I-Jra ic Acid (IRON-C PO) Take 65 mg [...] Encounters Date Type Department Care Team Description 06/28/2025 Documentation Only [facility] [address] [phone] Alberta Espinosa MA 06/24/2025 Telephone [facility] [address] [phone] Madai Dacosta MD 05/30/2025 3:45 PM EDT Office Visit [facility] [address] [phone] David Oviedo MD Stage 3a chronic kidney disease (HCC) (Primary Dx); Renal osteodystrophy 05/30/2025 Office Communication [facility] [address] [phone] David Oviedo MD from Last 3 Months Immunizations Immunization Administration Dates Next Due Influenza (IM) Preservative Free 014,06/23/2013,08/29/2012,08/20/2011 ,08/15/2010,10/01/2008,08/23/2007, 6,10/06/2005 Influenza, Trivalent, Adjuvanted 07/08/2020,07/05,07/11/2018 Pfizer SARS-COV-2 07/01/2021,11/29/2020,11/08/19 21 Pneumococcal Conjugate 13-Valent 12/06/2017,07/0 05/2015 Pneumococcal Polysaccharide 07/15/2006, 9 Td, Unspecified 07/11/2018,10/01/2008,10/04/1998 [...] Care Team (Late st Contact Info) Description 07/18/2025 1:30 PM EDT Office Visit [facility].. [address] [phone] David Oviedo MD [facility] [address] [phone] 09/04/2025 1:30 PM EST Office Visit [facility].. [address] [address] David Oviedo MD [facility] [address] [phone] Health Maintenance Due Date Last Done Comments [...] None seen 0 - 5 /hpf [facility] RBC, Urine None seen 0 - 2 /hpf [facility] Squamous Epithelial, Urine 0-10 0 - 10 /hpf [facility] Casts None seen None seen /lpf [facility] Bacteria, Urine None seen None seen/Few [facility] 06/23/2025 9:55 AM EDT 06/23/2025 David Oviedo MD LAB MICROBIOLOGY - GENERAL OR DERABLES Final Result Performing Organization Address [facility]/ZIP Co de Phone Number [facility] [place] [address] [place] [address] * (ABNORMAL) Protein, Total, Random Urine w/Creatinine (Protein/Creat Ratio) (06/23/2025 9:55 AM EDT) Creatinine, Ur 11.7 Not Estab. mg/dL [facility] Protein, Ur 11.7 Not Estab. mg/dL [facility] Urine Protein/Creati nine Ratio 1,000(H) 0 - 200 mg/g creat [facility] Urine Urine specimen obtained by clean catch procedure / Unknown 06/23/2025 9:55 AM EDT 06/23/2025 us David Oviedo MD LAB URINE ORDERABLES Final Re sult Performing Organization Address City/[facility]/ZIP Co de Phone Number [facility] [place] [address] [place] [address] * (ABNORMAL) Urine Albumin / Creatinine Ratio (06/23/2025 9:55 AM EDT) Albumin, Urine 32.6 Not Estab. ug/mL [facility] [place] Albumin/Creatin ine Ratio 279(H) 0 - 29 mg/g creat [facility] Comment: Normal: 0 - 29 Moderately increased: 30 - 300 Severely increased: >300 Urine Urine specimen obtained by clean catch procedure / Unknown 06/23/2025 9:55 AM EDT 06/23/2025 David Oviedo MD LAB URINE ORDERABLES Final Re sult Performing Organization Address City/[facility]/ZIP Co de Phone Number [facility] [address] [place] [address] * (ABNORMAL) Vitamin D 25 Hydroxy (06/23/2025 9:55 AM EDT) Vitamin D, 25-OH, Total 16.4(L) 30.0 - 100.0 ng/mL [facility] Comment: Vitamin D deficiency has been defined by the [place] of Medicine and an Endocrine Society practice guideline as a level of serum 25-OH vitamin D less than 20 ng/mL (1,2). The Endocrine Society went on to further define vitamin D insufficiency as a level between 21 and 29 ng/mL (2). 1. IOM ([place] of Medicine). 2010. Dietary reference intakes for calcium and D. [place]: The National Academies Press. 2. Jose MF, Bar DUMAS, Vi NICHOLSON, et al. Evaluation, treatment, and prevention of vitamin D deficiency: an Endocrine Society clinical practice guideline. JCEM. 2010; 96(7):1911-30. Blood Venous blood / Unknown 06/23/2025 9:55 AM EDT 06/23/2025 David Oviedo MD LAB BLOOD ORDERABLES Final Re sult [facility] [address] [place] [address] * (ABNORMAL) Urinalysis with microscopic (06/23/2025 9:55 AM EDT) Specific [place], Urine 1.009 1.005 - 1.030 [facility] pH Urine 6.0 5.0 - 7.5 [facility] [phone] Color, Urine Yellow Yellow [facility] Appearance Urine Clear Clear [facility] [place] [phone] WBC Esterase Urine Negative Negative [facility] Protein, Ur Trace Negative/Tra ce [facility] Glucose, Ur 1+(A) Negative [facility] Ketones, Urine Negative Negative [facility] [place] Blood Urine Negative Negative [facility] Bilirubin Urine Negative Negative [facility] [place] [phone] Urobilinogen Urine 0.2 0.2 - 1.0 mg/dL [facility] Nitrite, Urine Negative Negative [facility] [place] Microscopic Examination Comment [facility] Comment:Microscopic follows if indicated. Other Microsc. Observations See below: [facility] Comment:Microscopic was roni cated and was performed. Urine Urine specimen obtained by clean catch procedure / Unknown 06/23/2025 9:55 AM EDT 06/23/2025 Narrative [facility] - 06/25/2025 12:05 AM EDT Specimen Comment: Test(s) Potassium called to edward on 06/24/2025 at 13:22 Specimen Comment: EST us David Oviedo MD LAB URINE ORDERABLES Final Re sult [facility] [address] [place] [address] * (ABNORMAL) CBC (06/23/2025 9:55 AM EDT) WBC 9.6 3.4 - 10.8 x10E3/uL [facility] RBC 3.67(L) 4.14 - 5.80 x10E6/uL [facility] Hemoglobin 11.5(L) 13.0 - 17.7 g/dL [facility] Hematocrit 37.3(L) 37.5 - 51.0 % [facility] MCV 102(H) 79 - 97 fL [facility] MCH 31.3 26.6 - 33.0 pg [facility] MCHC 30.8(L) 31.5 - 35.7 g/dL [facility] RDW 14.3 11.6 - 15.4 % [facility] Platelets 309 150 - 450 x10E3/uL [facility] Blood Venous blood / Unknown 06/23/2025 9:55 AM EDT 06/23/2025 David Oviedo MD LAB BLOOD ORDERABLES Final Re sult [facility] [address] [place] [address] * PTH, Intact (06/23/2025 9:55 AM EDT) PTH 57 15 - 65 pg/mL [facility] Blood Venous blood / Unknown 06/23/2025 9:55 AM EDT 06/23/2025 David Oviedo MD LAB BLOOD ORDERABLES Final Re sult [facility] [address] [place] [address] * (ABNORMAL) Magnesium (06/23/2025 9:55 AM EDT) Pathologist [facility] Magnesium 1.4(L) 1.6 - 2.3 mg/dL [facility] Blood Venous blood / Unknown 06/23/2025 9:55 AM EDT 06/23/2025 us David Oviedo MD LAB BLOOD ORDERABLES Final Re sult [facility] [address] [place] [address] * (ABNORMAL) Renal Function Panel (06/23/2025 9:55 AM EDT) Pathologist [facility] Glucose 90 70 - 99 mg/dL [facility] BUN 40(H) 8 - 27 mg/dL [facility] Creatinine 1.78(H) 0.76 - 1.27 mg/dL [facility] eGFR CKD-EPI CR 2020 37(L) >59 mL/min/1.7 3 [facility] BUN/Creatinine Ratio 22 10 - 24 [facility] Sodium 145(H) 134 - 144 mmol/L [facility] Potassium 6.1(>) 3.5 - 5.2 mmol/L [facility] Comment:Client Requested [place] Chloride 110(H) 96 - 106 mmol/L [facility] Bicarbonate (CO2) 17(L) 20 - 29 mmol/L [facility] Calcium 9.5 8.6 - 10.2 mg/dL [facility] Phosphorus 3.5 2.8 - 4.1 mg/dL [facility] Albumin 4.0 3.7 - 4.7 g/dL [facility] Blood Venous blood / Unknown 06/23/2025 9:55 AM EDT 06/23/2025 David Oviedo MD LAB BLOOD ORDERABLES Final Re sult [facility] [address] [place] [address] * (ABNORMAL) ALT EXT LABS (05/24/2025) Only the most recent of2 resultswithin the time period is included. WBC 12.2(A) 3.3 - 10.0 10*3/ML Red Blood Cell Count 3.81 Hemoglobin 11.8(A) 13.5 - 17.5 Hematocrit 38.3(A) 41.0 - 53.0 Platelets 308 150 - 399 10*3/UL Spec Grav, UA 1.010 05/24/2025 Historical Provider LAB BLOOD ORDERABLES Olive l Result from Last 3 Months Insurance Medicare [facility] Medicare [facility] Care Teams County Library Director Relationship Specialty Start Date End Date Yocasta Cary MD [address] [place] [address] PCP - General Internal Medicine 05/08/25
--- OUTSIDE RECORDS SUMMARY | 2025-07-10 16:46 | XMS_ITS | Encounter Summary ---
Author Organization [facility] Address [address] [place] [address] Phone Care Team Providers Care Proprietary Trader Name Role Phone Maggie Franz MD Primary Care Provider [phone] Hemal Ball Primary Care Provider [phone] Encounter Details Date Type Department Care Team (Late Contact Info) Description 07/30/2020 Telephone [facility] [address] Floor, [address] [place] [address] Nat Cantrell MD [address] [place] [address] [email or web address] Social History Tobacco Use Types Packs/Day [...] Encounters Date Type Department Care Team (Late Contact Info) Description 09/17/2025 11:15 AM EST Office Visit [facility] [address]rd Floor, [address] [place] [address] Rome Saleem DO [address] [facility] [address] [place] [address] [email or web address] documented as of this encounter Visit Diagnoses Not on filedocumented in this encounter Care Teams Proprietary Trader Relationship Specialty Start Date End Date Maggie Franz MD [address] [place] [address] PCP - General 09/07/17 05/30/24 Hemal Ball PA [address] [facility] [address] [place] [address] [email or web address] PCP - General Physician Culinary Chef 05/31/24 documented as of this encounter Additional Source Comments The information contained in this document represents components of the legal health record. It is not the complete legal health record.[facility]
--- OUTSIDE RECORDS SUMMARY | 2025-07-10 16:46 | XMS_ITS | Encounter Summary ---
Author Organization [facility] Address [address] [facility] [address] [place] [address] Phone Care Team Providers Care Musical Instrument Maker Or Repairer Name Role Phone Maggie Franz MD Primary Care Provider Hemal Ball Primary Care Provider Encounter Details Date Type Department Care Team (Late Contact Info) Description 02/12/2021 Procedure Pass [facility] [address] [place] [address] Social History Tobacco Use Types Packs/Day Years [...] Description 09/17/2025 11:15 AM EST Office Visit [facility] [address] [facility] 3rd Floor, [address] [place] [address] Rome Saleem DO [address] [facility] [address] [place] [address] [email or web address] documented as of this encounter Visit Diagnoses Not on filedocumented in this encounter Care Teams Musical Instrument Maker Or Repairer Relationship Specialty Start Date End Date Maggie Franz MD [address] [place] [address] PCP - General 09/07/17 05/30/24 Hemal Ball PA [address] [address] [email or web address] PCP - General Physician Line Installation Supervisor 05/31/24 documented as of this encounter Additional Source Comments The information contained in this document represents components of the legal health record. It is not the complete legal health record.[facility]
--- OUTSIDE RECORDS SUMMARY | 2025-07-10 16:46 | XMS_ITS | Clinical Summary ---
Author Organization [facility] Address [address] [facility] [address] [place] [address] Phone Care Team Providers Care Invoicing Machine Operator Name Role Phone Hemal Ball Primary Care Provider [phone] Allergies Active Allergy Reactions Criticality Noted Date [...] Active ferrous sulfate 325 mg (65 mg assiniboine and gros ventre tribes iron) tablet Take 325 mg by mouth [...] (PLAVIX) 75 mg tabletIndicatio ns:Atherosclero sis of salt river coronary artery of [place] river heart without angina pectoris TAKE 1 TABLET [...] EDT): This is being monitored through the [place] office I did verify that there was an interrogation performed approximately a year ago looks like he only has an appointment scheduled later this year for repeat in person device interrogation Assessment & Plan (05/31/2024 5:29 PM EDT): Patient tells me he did have his EVENT SET UP SPECIALIST-D placed in 2019. From what he tells me this was done for primary prevention with his LVEF less than 35% at that time. He is not aware of having ever had shocks delivered. His device is being monitored remotely through the [place] office. We were able to download the recent report dated 05/18/2024. There is no atrial fibrillation noted on this report. ECG today showing an irregular wide-complex rhythm possibly with PVCs. Perhaps some beats just EVENT SET UP SPECIALIST pacing versus not. Irregularity potentially concerning for [...] Recently had iliac artery stent done through [facility] I am told. He follows with [facility] vascular for his PVD. Should continue on [...] on review of labs recently done at [facility] Assessment & Plan (02/11/2024 10:09 AM EDT): [...] should be less than 55 Atherosclerosis of salt river co ronary artery of salt river heart without angina pectoris 09/07/2022 Assessment & [...] less than 70 He had labs at [facility] earlier this year in February showing cholesterol 124, triglycerides 123, HDL 59, LDL 43 Assessment & Plan (05/31/2024 5:10 PM EDT): No symptoms concerning for angina at this time. Continue aspirin/Plavix/statin I have reviewed most recent lipid profile through [facility]. Lipids well-controlled. Should maintain his LDL less [...] a defibrillator in place he is a [place] Heart Association class III patient with a recurrent hospitalization for heart failure I explained risk benefits and alternatives to him regarding a CardioMEMS implant which we will do at [facility]. Assessment & Plan (09/07/2022 10:46 AM EST): This patient underwent multivessel bypass surgery EF is 35% with an ICD implant he is not having any heart failure or anginal type symptoms and is very stable Biventricular congestive heart failure 2 Assessment & Plan (07/14/2024 1:20 PM EDT): Still denying symptoms of congestive heart failure He does have a EVENT SET UP SPECIALIST-D Warm/wet on exam +1 pitting edema bilaterally [...] and patient to follow-up with his primary human resources supervisor Dr. 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; PVD (peripheral vascular disease); HFrEF (heart failure with reduced ejection fraction); Pure hypercholesterolemia from Last 3 Months Social History Tobacco [...] Description 09/17/2025 11:15 AM EST Office Visit [facility] [address] [facility] 3rd Floor, [address] [place], [place] [phone] Rome Saleem DO 22 [facility] [address] [place] [address] [email or web address] Health Maintenance Due Date Last Done Comments [...] this topic Medical Devices Implanted Type Area Oxygen Furnace Operator Device Identifier Shelf Expiration Date Model / Serial / Lot Sensor Pulmonary Artery Delivery System Cardiomems - [id number] Implanted:Qty : 1 on 10/06/2023 by Rome Saleem DO at [facility] Implantable Monitor Left: Lung Appsperse [id number] 11/22/2024 CM PATIENT SYSTEM / XDTYGE / Pacemaker Pacemaker Chest Wall Prosthetic Joint Bilateral Knees Prosthetic Joint Description:bilat. knees [place] Right Femur [place] Right: Femur Screw In Back Screw Back Stent In Left Leg Stent Leg Stent Absolute Pro 7mm 40mm 135cm .035in Otw Vascular Nickel Titanium Self-Expandin g External Iliac Artery Tri Axial Radiopaque Marker Sterile Disp - [id number] Implanted:Qty : 1 on 02/12/2021 by Rome Saleem DO at [facility] Stent DUARTE VASCULAR [id number] 08/03/2022 [id number] Description:[place] SFA Insurance MEDICARE PART A & B [facility] PARTIAL [facility] MEDICARE SUPPLEMENT [place] [id number] [facility] PARTIAL MEDICARE SUPPLEMENT MEDICARE PART A & B [facility] PARTIAL Member Subscriber Plan / Payer (Ef fective 2020-Present) Name:Arnel Quintana Relation to Subscriber:Self Name:Arnel Quintana Payer ID:Not on file Group ID:Not on file Type:Medicaid Address: [address] MEDICARE SUPPLEMENT MEDICARE PART A & B HEALTH SAFETY NET PARTIAL [place] MEDICARE SUPPLEMENT MEDICARE PART A & B [employer] SAFETY NET PARTIAL Member Subscriber Plan / Payer (Ef fective 2020-Present) Name:EdisonsunnyShyla huffvin Relation to Subscriber:Self Name:Arnel Quintana Payer ID:Not on file Group ID:Not on file Type:Medicaid Address: [address] MEDICARE SUPPLEMENT MEDICARE PART A & B Member Subscriber Plan / Payer (Ef fective 2006-Present) Name:Arnel Quintana Member ID:[id number] Relation to Subscriber:Self Name:Arnel Quintana Subscriber ID:[id number] Payer ID:[id number] Group ID:Not on file Type:Medicare Address: [employer] [address] [place] [address] [facility] PARTIAL Member Subscriber Plan / Payer (Ef fective 2020-Present) Name:Arnel Quintana Relation to Subscriber:Self Name:Arnel Quintana Payer ID:Not on file Group ID:Not on file Type:Medicaid Address: [address] MEDICARE SUPPLEMENT MEDICARE PART A & B PARTIAL Member Subscriber Plan / Payer (Ef fective 2020-Present) Name:Arnel Quintana Relation to Subscriber:Self Name:Arnel Quintana Payer ID:Not on file Group ID:Not on file Type:Medicaid Address: [address] MEDICARE SUPPLEMENT MEDICARE PART A & B HEALTH SAFETY NET PARTIAL Member Subscriber Plan / Payer (Ef fective 2020-Present) Name:Arnel Quintana Relation to Subscriber:Self Name:Arnel Quintana Payer ID:Not on file Group ID:Not on file Type:Medicaid Address: [address] MEDICARE SUPPLEMENT MEDICARE PART A & B HEALTH SAFETY NET PARTIAL [place]ALTH [place] MEDICARE SUPPLEMENT Advance Directives For more information, please contact: [phone] (9AM - 5PM Noreen/[facility], Wednesday-Wednesday) * Full Code (Latest Code Status on File) Date Activated Date Inactivated Comments 10/06/2023 7:16 AM Question Answer Comments Code Status Confirmed With: Patient Code Status Communicated To: Other (specify belo w) Code Discussion Comments: In culture media laboratory assistant * Full Code Date Activated Date Inactivated Comments 02/12/2021 6:40 AM 10/06/2023 7:16 AM Question Answer Comments Code Status Confirmed With: Other (specify below ) Code Discussion Comments: Transcribed from order Care Teams Invoicing Machine Operator Relationship Specialty Start Date End Date Hemal Ball PA [address] [place], [place] [address] [address] [place] [address] [email or web address] PCP - General Physician Cosmetics Presser 05/31/24 Additional Source Comments The information contained in this document represents components of the legal health record. It is not the complete legal health record.[facility]
--- OUTSIDE RECORDS SUMMARY | 2025-07-10 16:46 | XMS_ITS | Encounter Summary ---
Author Organization [facility] Address [address] [facility] [address] [place] [address] Phone Care Team Providers Care Snack Foods Mixer Operator Name Role Phone Maggie Franz MD Primary Care Provider [phone] Hemal Ball Primary Care Provider [phone] Encounter Details Date Type Department Care Team (Late Contact Info) Description 09/07/2017 Procedure Pass [facility] [address] [place] [address] Social History Tobacco Use Types Packs/Day Years [...] Description 09/17/2025 11:15 AM EST Office Visit [facility] [address] [facility] 3rd Floor, [address] [place] [address] Rome Saleem DO 22 [facility] [address] [place] [address] documented as of this encounter Visit Diagnoses Not on filedocumented in this encounter Care Teams Snack Foods Mixer Operator Relationship Specialty Start Date End Date Maggie Franz MD [address] [place] [address] PCP - General 09/07/17 05/30/24 Hemal Ball PA [address] [address] [email or web address] PCP - General Physician Steam Engineer 05/31/24 documented as of this encounter Additional Source Comments The information contained in this document represents components of the legal health record. It is not the complete legal health record.[facility]
--- OUTSIDE RECORDS SUMMARY | 2025-07-10 16:46 | XMS_ITS | Encounter Summary ---
Author Organization [facility] Address [address] [facility] [address] [place] [address] Phone Care Team Providers Care Senior Ux Designer Name Role Phone Maggie Franz MD Primary Care Provider [phone] Hemal Ball Primary Care Provider [phone] Encounter Details Date Type Department Care Team (Late Contact Info) Description 09/30/2017 Procedure Pass [facility] [address] [place] [address] Social History Tobacco Use Types Packs/Day Years [...] Description 09/17/2025 11:15 AM EST Office Visit [facility] [address] [facility] 3rd Floor, [address] [place] [address] Rome Saleem DO 22 [facility] [address] [place] [address] documented as of this encounter Visit Diagnoses Not on filedocumented in this encounter Care Teams Senior Ux Designer Relationship Specialty Start Date End Date Maggie Franz MD [address] [place] [address] PCP - General 09/07/17 05/30/24 Hemal Ball PA [address] [address] [email or web address] PCP - General Physician Librarian Helper 05/31/24 documented as of this encounter Additional Source Comments The information contained in this document represents components of the legal health record. It is not the complete legal health record.[facility]
--- OUTSIDE RECORDS SUMMARY | 2025-07-10 16:46 | XMS_ITS | Encounter Summary ---
Author Organization [facility] Address [address] [address] Phone Care Team Providers Care Mail Reader Name Role Phone Yocasta Cary MD Primary Care Provider [phone] Encounter Details Date Type Department Care Team (Late st Contact Info) Description 05/30/2025 Office Communication [facility] [address] [address] David Oviedo MD [address] [address] Social History Tobacco Use Types [...] my note today to Dr Saleem ( [facility]) Dr Georgie Markham at [facility] Dr [place]h [place] [facility] [place] in this encounter Plan of Treatment Upcoming Encounters Date Type Department Care Team (Late st Contact Info) Description 07/18/2025 1:30 PM EDT Office Visit [facility] [address] [phone] David Oviedo MD [address] [place] [phone] 09/04/2025 1:30 PM EST Office Visit [facility] [address] [phone] David Oviedo MD [address] [place] [phone] documented as of this encounter Visit Diagnoses Not on filedocumented in this encounter Care Teams Mail Reader Relationship Specialty Start Date End Date Yocasta Cary MD [address] [place] [address] PCP - General Internal Medicine 05/08/25 documented as of this encounter
--- OUTSIDE RECORDS SUMMARY | 2025-07-10 16:46 | XMS_ITS | Encounter Summary ---
Author Organization [facility] Address [address] [place] [address] Phone Care Team Providers Care Fiber Locking Supervisor Name Role Phone Maggie Franz MD Primary Care Provider [phone] Hemal Ball Primary Care Provider [phone] Encounter Details Date Type Department Care Team (Late st Contact Info) Description 10/06/2023 Procedure Pass [facility] [address] [place] [address] Social History Tobacco Use Types Packs/Day Years [...] 7:16 AM EST Marion Nichols RN * [place] Suicide Severity Rating Scale (Screener/Recent Self-Report) Question Answer Date of Assessment Author 2. Non-Specific Active Suici oseas Thoughts (Past 1 Month) No 10/06/2023 7:16 AM Lizy Martel RN documented as of this encounter Plan of Treatment Upcoming Encounters Date Type Department Care Team (Late st Contact Info) Description 09/17/2025 11:15 AM EST Office Visit [facility] [address] [facility] 3rd Floor, [address] [place] [address] Rome Saleem DO [address] [facility] [address] [place] [address] [email or web address] documented as of this encounter Visit Diagnoses Not on filedocumented in this encounter Care Teams Fiber Locking Supervisor Relationship Specialty Start Date End Date Maggie Franz MD [address] [place] [address] PCP - General 09/07/17 05/30/24 Hemal Ball PA [address] [facility] [address] [place] [address] [email or web address] PCP - General Physician Child Protective Services Social Worker 05/31/24 documented as of this encounter Additional Source Comments The information contained in this document represents components of the legal health record. It is not the complete legal health record.[facility]
== END 2025-07-10 13:37 | disposition home or self-care (01) ==
LOC: HO.RADIR 13:36
PROVIDERS: Visit Provider Nurse Practitioner Family
DX: J47.9 Bronchiectasis, uncomplicated (principal); A49.8 Other bacterial infections of unspecified site
CPT/HCPCS: 36573; 76937; C1751; J2003

== ENCOUNTER → 2025-07-10 13:39 | Outpatient (BNV) | payer MEDICARE, OTHER, SELFPAY | PROVIDERS: Visit Provider Radiology Diagnostic Radiology | DX: Z45.2 Encounter for adjustment and management of vascular access device (principal) | CPT/HCPCS: 36573 ==

== ENCOUNTER 2025-07-20 10:30 | Outpatient (RCR) | payer MEDICARE, OTHER, SELFPAY ==
[2025-07-11 13:31] VITALS: BP 124/45; PULSE 67; RESP 20; TEMP 36.2; O2SAT 99
--- NOTE | 2025-07-11 14:01 | HO.INF ---
RUE picc dressing noted to be half intact. no noted biopatch. picc dressing change done today in sterile fashion. noted bruising around insertion site d/t recency of insertion. mild tenderness to touch. no noted swelling/edema/bleeding. picc line at 0cm ext chanel. biopatch applied. clave changed. picc flushes easily with visible blood rtn. patent.
[2025-07-12 12:09] VITALS: BP 108/21; PULSE 82; RESP 16; TEMP 36.7; O2SAT 96
[2025-07-13 11:58] VITALS: BP 128/49; PULSE 87; RESP 18; TEMP 36.6
[2025-07-13] MEDS: 0.9 % Sodium Chloride Flush 10 ML SYRINGE 5 ML IVFLUSH (12:13)
[2025-07-14 10:21] VITALS: BP 119/42; PULSE 78; RESP 20; TEMP 36; O2SAT 98
[2025-07-14] MEDS: 0.9 % Sodium Chloride Flush 10 ML SYRINGE 5 ML IVFLUSH (10:46)
[2025-07-15 09:52] VITALS: BP 114/38; PULSE 74; RESP 17; TEMP 36.5; O2SAT 98
[2025-07-15] MEDS: 0.9 % Sodium Chloride Flush 10 ML SYRINGE 5 ML IVFLUSH (10:06)
[2025-07-16 09:53] VITALS: BP 112/36; PULSE 76; RESP 16; TEMP 36.2; O2SAT 98
[2025-07-16 10:13] VITALS: BP 111/27
[2025-07-18 08:56] VITALS: BP 105/47; PULSE 80; RESP 16; TEMP 36.1; O2SAT 100
--- NOTE | 2025-07-18 09:27 | HO.INF ---
carmen picc dressing change done in sterile fashion. biopatch replaced. clave replaced. statlock replaced. ext length at 0cm, unchanged. improved bruising around insertion site since last dressing change. no notable swelling/edema/bleeding/redness. picc line patent, flushes easily with visible blood rtn.
[2025-07-19 09:24] VITALS: BP 120/40; PULSE 70; RESP 18; TEMP 36.5; O2SAT 99
[2025-07-20 10:23] VITALS: BP 106/44; PULSE 76; RESP 20; TEMP 36; O2SAT 100
--- NOTE | 2025-07-20 10:55 | HO.INF ---
ertapenem 1gm/100ml ns infused over half hour. rue picc line patent, easily flushes, blood rtn visualized. no bruising/swelling/bleeding/oozing noted. pt denies complaints r/t picc line. ext length at 0 cm, unchanged. statlock clean and intact. dressing change done in sterile fashion. biopatch replaced. clave replaced. curos cap applied.
== END 2025-07-20 14:27 | disposition home or self-care (01) ==
LOC: HO.INF 10:30
PROVIDERS: Visit Provider Nurse Practitioner Family
DX: A49.8 Other bacterial infections of unspecified site (principal)
CPT/HCPCS: 96374; J1335

== ENCOUNTER 2025-07-27 10:43 | Outpatient (REF) | payer MEDICARE, OTHER, SELFPAY ==
--- OUTSIDE RECORDS SUMMARY | 2025-07-24 13:15 | XMS_ITS | Encounter Summary ---
Author Organization [facility] Address [address] [address] Phone Care Team Providers Care Monitoring Engineer Name Role Phone Yocasta Cary MD Primary Care Provider [phone] Encounter Details Date Type Department Care Team (Late st Contact Info) Description 07/24/2025 1:15 PM EDT Office Visit [facility] [address] [phone] David Oviedo MD [address] [phone] Stage 3a chronic kidney disease (HCC) (Primary Dx); Essential (primary) hypertension Social History Tobacco Use Types Packs/Day Years [...] on file documented as of this encounter Last Filed Vital Signs Vital Sign Reading Time Taken Comments Blood Pressure 112/60 07/24/2025 1:15 PM EDT Pulse 64 07/24/2025 1:15 PM EDT Temperature - - Respiratory Rate - - Oxygen Saturation 94% 07/24/2025 1:15 PM EDT Inhaled Oxygen Concentration - - Weight 66.7 kg (147 lb) 07/24/2025 1:15 PM EDT Height - - Body Mass Index - - documented in this encounter Patient Instructions * Patient Instructions* David Oviedo MD - 07/24/2025 1:15 PM EDT No NSAIDS - Do not take non-steroidal anti-inflammatory medications (NSAIDS) such as Ibuprofen (Advil, Motrin, etc), Naproxen (Aleve, etc), Celecoxib (Celebrex) or Ketoprofen. These common arthritis medications can cause permanent kidney damage or worsen your kidney damage. For mild occasional pain, Acetaminophen (Tylenol, etc) is safe for your kidneys. Sodium and Your CKD Diet: How to Spice Up Your Cooking What is sodium? Sodium is a mineral found naturally in foods and is the major part of table salt. What are the effects of eating too much sodium? When your kidneys are not healthy, extra sodium and fluid build up in your body. This can cause swollen ankles, puffiness, a rise in blood pressure, shortness of breath, and/or fluid around your heart and lungs. See the following table for suggestions on how to reduce sodium in your diet. LIMIT THE [AMOUNT OF... FOOD TO LIMIT BECAUSE OF THEIR HIGH SODIUM CONTENT ACCEPTABLE SUBSTITUTES SALT & SALT SEASONINGS Table salt Seasoning salt Garlic salt Onion salt Celery salt Lemon pepper Lite salt Meat tenderizer Bouillon cubes Flavor enhancers Fresh garlic, fresh onion, garlic powder, onion powder, black [pepper, lemon juice, low-sodium/salt-free seasoning blends, vinegar SALTY FOODS Barbecue sauce Steak sauce Soy sauce Teriaky sauce Oyster sauce Salted Snacks such as Crackers Potato chips [place] chips Pretzels Tortilla chips Nuts Popcorn Collier seeds Homemade or low- sodium sauces and salad dressings; Vinegar, dry mustard, unsalted popcorn, pretzels, tortilla or corn chips Cured Foods Ham Salt pork [place] Sauerkraut Pickles, pickle relish Lox & [place] Olives Fresh beef, veal, pork, poultry, fish, eggs [place] MEATS Hot Dogs Cold cuts, deli meats Pastrami Sausage Corned beef Spam Low-salt deli meats PROCESSED FOODS Buttermilk Cheese Canned: Soups Tomato products Vegetable juices Canned vegetables Convenience Foods such as: TV Dinners Canned raviolis [place] Macaroni & Cheese Spaghetti Frozen prepared foods Fast foods Natural cheese (1-2 oz Per week) Homemade or fer,1- sodium soups, canned food without added salt Homemade casseroles without added salt, made with fresh or raw vegetables, fresh meat, agatha, pasta, or unsalted canned vegetables Some salt or sodium is needed for body water balance. But when your kidneys lose the ability to control sodium and water balance, you may experience the following: thirst fluid gain high blood pressure discomfort during dialysis By using less sodium in your diet, you can control these problems. Hints to keep your sodium intake down Cook with herbs and spices instead of salt. (Refer to Spice Up Your Cooking section for further suggestions.) Read food labels and choose those foods low in sodium. Avoid salt substitutes and specialty low-sodium foods made with salt substitutes because they are high in potassium. When eating out, ask for meat or fish without salt. Ask for gravy or sauce on the side; these may contain large amounts of salt and should be used in small amounts . Limit use of canned, processed and frozen foods. Some information about reading labels Understanding the terms: Sodium Free - Only a trivial amount of sodium per serving. Very Low Sodium - 35 mg or less per serving. Low Sodium - 140 mg or less per serving. Reduced Sodium - Foods in which the level of sodium is reduced by 25%. Light or Lite in Sodium - Foods in which the sodium is reduced by at least 50% . Simple rule of thumb : If salt is listed in the first five ingredients, the item is probably too high in sodium to use. All food labels now have milligrams (mg) of sodium listed. Follow these steps when reading the sodiwn information on the label: 1. Know how much sodium you are allowed each day. Remember that there are 1000 milligrams (mg) in 1gram. For [id number], if your diet prescription is 2 grams of sodium , your limit is 2000 milligrams per day. Consider the sodium value or other food to be eaten during the day. 2. Look at the package label. Check the serving size. Nutrition values are expressed per caitlyn g. How does this compare to your total daily allowance? If the sodium level is 500 mg or more per serving, the item is not a good choice. 3. Compare labels of similar products. Select the lowest sodium level for the same serving size. How to Spice Up Your Cooking Giving up salt does not mean giving up flavor. Learn to season your food with herbs and spices. Be creative and experiment for a new and exciting flavor. What kinds of spices and herbs should I use instead of salt to add flavor? Try the following spices with the foods listed. Allspice: Use with beef, fish, beets, cabbage, canots, peas, fruit. Basil: Use with beef, pork, most vegetables. [place] Annabella: Use with beef, pork, most vegetables. Cygnet: Use with beef, pork, green beans, cauliflower, cabbage, beets, asparagus, and in dips and marinades. Cardamom: Use with fruit and in baked goods. Tafoya: Use with beef, chicken, pork, fish, green beans, carrots and in marinades. Dill: Use with beef, chicken, green beans, cabbage, carrots, peas and in dips. Rianna: Use with beef, chicken, pork, green beans, cauliflower and eggplant. Marjoram: Use with beef, chicken, pork, green beans, cauliflower and eggplant. Karina: Use with chicken, pork, cauliflower, peas and in marinades. Thyme: Use with beef, chicken, pork, fish, green beans, beets and carrots. Sathya: Use with chicken, pork, eggplant and in dressing. Tarragon: Use with fish, chicken, asparagus, beets, cabbage, cauliflower and in marinades. Tips for cooking with herbs and spices Purchase spices and herbs in small amounts . When they sit on the shelf for years they lose their flavor. Use no more than ?? teaspoon of dried spice (?? of fresh) per pound of meat. Add ground spices to food about 15 minutes before the end of the cooking period. Add whole spices to food at least one hour before the end of the cooking period. Combine herbs with oil or butter, set for 30 minutes to bring out their flavor, then brush on foodswhile they cook, or brush meat with oil and sprinkle herbs one hour before coolcing. Crush dried herbs before adding to foods. Can I use salt substitutes? Caution! If you are told to limit potassium in your diet, be very cautious about using salt substitutes because most of them contain some form of potassium. Check with your doctor or dietitian beforeusing and salt substitute. [place] and create your own seasoning containing those spices that you like. If you would like to become a volunteer and find out more about what's happening where you live, contact your local [facility] Affiliate. Blood pressure monitoring education: Monitor home blood pressure values after sitting for 5 minutes with back and arm support. Keep a log. Bring your log and blood pressure cuff to your next visit. documented in this encounter Plan of Treatment Upcoming Encounters Date Type Department Care Team (Late st Contact Info) Description 09/04/2025 1:30 PM EST Office Visit [facility] [address] [phone] David Oviedo MD [address] [phone] 10/24/2025 1:00 PM EST Office Visit [facility] [address] [phone] Renate Falk ARNP [address] [phone] documented as of this encounter Procedures Procedure Name Priority Date/Time Associated Diagnosis Comments RENAL FUNCTION PANEL Routine 07/24/2025 2:57 PM EDT Stage 3a chronic kidney disease (HCC) Essential (primary) hypertension documented in this encounter Results * (ABNORMAL) Renal function panel (07/24/2025 2:57 PM EDT) Pathologist [facility] Glucose 95 70 - 99 mg/dL [facility] BUN 40(H) 8 - 27 mg/dL [facility] Creatinine 1.47(H) 0.76 - 1.27 mg/dL [facility] eGFR CKD-EPI CR 2020 47(L) >59 mL/min/1.7 3 [facility] BUN/Creatinine Ratio 27(H) 10 - 24 [facility] Sodium 146(H) 134 - 144 mmol/L [facility] Potassium 4.5 3.5 - 5.2 mmol/L [facility] Chloride 109(H) 96 - 106 mmol/L [facility] Bicarbonate (CO2) 15(L) 20 - 29 mmol/L [facility] Calcium 9.5 8.6 - 10.2 mg/dL [facility] Phosphorus 3.6 2.8 - 4.1 mg/dL [facility] Albumin 4.4 3.7 - 4.7 g/dL [facility] Blood Venous blood / Unknown 07/24/2025 2:57 PM EDT 07/24/2025 us David Oviedo MD LAB BLOOD ORDERABLES Final Re sult [facility] [address] [place] [address] documented in this encounter Visit Diagnoses Diagnosis Stage 3a chronic kidney disease (HCC)- Primary Essential (primary) hypertension documented in this encounter Care Teams Monitoring Engineer Relationship Specialty Start Date End Date Yocasta Cary MD [address] [place] [address] PCP - General Internal Medicine 05/08/25 documented as of this encounter
--- OUTSIDE RECORDS SUMMARY | 2025-07-27 12:27 | XMS_ITS | Encounter Summary ---
Author Organization [facility] Address [address] [address] Phone Care Team Providers Care Personal Banking Representative Name Role Phone Yocasta Cary MD Primary Care Provider Encounter Details Date Type Department Care Team (Late st Contact Info) Description 07/11/2025 Office Communication [facility] [address] [phone] David Oviedo MD [address] [phone] Social History Tobacco Use Types [...] Telephone Encounter - David Oviedo MD - 07/11/2025 4:33 PM EDT Get rec from [facility] for ER visit and LABS documented in this encounter Plan of Treatment Upcoming Encounters Date Type Department Care Team (Late st Contact Info) Description 09/04/2025 1:30 PM EST Office Visit [facility] [address] [phone] David Oviedo MD [address] [phone] 10/24/2025 1:00 PM EST Office Visit [facility] [address] [phone] Renate Falk ARNP [address] [phone] documented as of this encounter Visit Diagnoses Not on filedocumented in this encounter Care Teams Personal Banking Representative Relationship Specialty Start Date End Date Yocasta Cary MD [address] [place] [address] PCP - General Internal Medicine 05/08/25 documented as of this encounter
--- OUTSIDE RECORDS SUMMARY | 2025-07-27 12:28 | XMS_ITS | Encounter Summary ---
Author Organization [facility] Address [address] [address] Phone Care Team Providers Care Tune Up Mechanic Name Role Phone Yocasta Cary MD Primary Care Provider [phone] Encounter Details Date Type Department Care Team (Late st Contact Info) Description 05/30/2025 Office Communication [facility] [address] [phone] David Oviedo MD [address] [phone] Social History Tobacco Use Types [...] my note today to Dr Saleem ( [facility]) Dr Georgie Markham at [facility] Dr Saleh at [facility] documented in this encounter Plan of Treatment Upcoming Encounters Date Type Department Care Team (Late st Contact Info) Description 09/04/2025 1:30 PM EST Office Visit [facility] [address] [place] [phone] David Oviedo MD [address] [phone] 10/24/2025 1:00 PM EST Office Visit [facility] [address] [phone] Renate Falk ARNP [facility] [address] [phone] documented as of this encounter Visit Diagnoses Not on filedocumented in this encounter Care Teams Tune Up Mechanic Relationship Specialty Start Date End Date Yocasta Cary MD [address] [place] [address] PCP - General Internal Medicine 05/08/25 documented as of this encounter
--- OUTSIDE RECORDS SUMMARY | 2025-07-27 12:28 | XMS_ITS | Encounter Summary ---
Author Organization [facility] Address [address] [place] [address] Phone Care Team Providers Care Auto Mechanics Instructor Name Role Phone Maggie Franz MD Primary Care Provider [phone] Hemal Ball Primary Care Provider [phone] Encounter Details Date Type Department Care Team (Late Contact Info) Description 07/30/2020 Telephone [facility] [address] Floor, [address] [place] [address] Nat Cantrell MD [address] [place] [address] [email or web address] Social History Tobacco Use Types Packs/Day [...] Description 09/17/2025 11:15 AM EST Office Visit [facility] [address] Floor, [address] [place] [address] Rome Saleem DO [address] [facility] [address] [place] [address] [email or web address] documented as of this encounter Visit Diagnoses Not on filedocumented in this encounter Care Teams Auto Mechanics Instructor Relationship Specialty Start Date End Date Maggie Franz MD [address] [place] [address] PCP - General 09/07/17 05/30/24 Hemal Ball PA [address] [facility] [address] [place] [address] [email or web address] PCP - General Physician Fancy Needleworker 05/31/24 documented as of this encounter Additional Source Comments The information contained in this document represents components of the legal health record. It is not the complete legal health record.[facility]
--- OUTSIDE RECORDS SUMMARY | 2025-07-27 12:28 | XMS_ITS | Encounter Summary ---
Author Organization [facility] Address [address] [facility] [address] [place] [address] Phone Care Team Providers Care Pharmaceutical Physician Name Role Phone Maggie Franz MD Primary Care Provider [phone] Hemal Ball Primary Care Provider [phone] Encounter Details Date Type Department Care Team (Late Contact Info) Description 09/07/2017 Procedure Pass [facility] [address] [place] [address] Social History Tobacco Use Types Packs/Day Years [...] Description 09/17/2025 11:15 AM EST Office Visit [facility] [address] [facility] 3rd Floor, [address] [place] [address] Rome Saleem DO 22 [facility] [address] [place] [address] documented as of this encounter Visit Diagnoses Not on filedocumented in this encounter Care Teams Pharmaceutical Physician Relationship Specialty Start Date End Date Maggie Franz MD [address] [place] [address] PCP - General 09/07/17 05/30/24 Hemal Ball PA [address] [address] [email or web address] PCP - General Physician Molder Closed Molds 05/31/24 documented as of this encounter Additional Source Comments The information contained in this document represents components of the legal health record. It is not the complete legal health record.[facility]
--- OUTSIDE RECORDS SUMMARY | 2025-07-27 12:28 | XMS_ITS | Encounter Summary ---
Author Organization [facility] Address [address] [place] [address] Phone Care Team Providers Care Technical Instructor Name Role Phone Maggie Franz MD Primary Care Provider [phone] Hemal Ball Primary Care Provider [phone] Encounter Details Date Type Department Care Team (Late st Contact Info) Description 10/06/2023 Procedure Pass [facility] [address] [place] [address] Social History Tobacco Use Types Packs/Day Years [...] 7:16 AM EST Marion Nichols RN * [place] Suicide Severity Rating Scale (Screener/Recent Self-Report) Question Answer Date of Assessment Author 2. Non-Specific Active Suici oseas Thoughts (Past 1 Month) No 10/06/2023 7:16 AM Lizy Martel RN documented as of this encounter Plan of Treatment Upcoming Encounters Date Type Department Care Team (Late st Contact Info) Description 09/17/2025 11:15 AM EST Office Visit [facility] [address] [facility] 3rd Floor, [address] [place] [address] Rome Saleem DO [address] [facility] [address] [place] [address] [email or web address] documented as of this encounter Visit Diagnoses Not on filedocumented in this encounter Care Teams Technical Instructor Relationship Specialty Start Date End Date Maggie Franz MD 4 [place] [address] PCP - General 09/07/17 05/30/24 Hemal Ball PA [address] [facility] [address] [place] [address] [email or web address] PCP - General Physician Byproducts Maker 05/31/24 documented as of this encounter Additional Source Comments The information contained in this document represents components of the legal health record. It is not the complete legal health record.[facility]
--- OUTSIDE RECORDS SUMMARY | 2025-07-27 12:28 | XMS_ITS | Clinical Summary ---
Author Organization [facility] Address [address] [facility] [address] [place] [address] Phone Care Team Providers Care Concrete Stone Finisher Name Role Phone Hemal Ball Primary Care Provider [phone] Allergies Active Allergy Reactions Criticality Noted Date [...] Active ferrous sulfate 325 mg (65 mg little traverse iron) tablet Take 325 mg by mouth [...] (PLAVIX) 75 mg tabletIndicatio ns:Atherosclero sis of [place] coronary artery of [place] heart without angina pectoris TAKE 1 TABLET [...] EDT): This is being monitored through the [facility] office I did verify that there was an interrogation performed approximately a year ago looks like he only has an appointment scheduled later this year for repeat in person device interrogation Assessment & Plan (05/31/2024 5:29 PM EDT): Patient tells me he did have his ROLLER-D placed in 2019. From what he tells me this was done for primary prevention with his LVEF less than 35% at that time. He is not aware of having ever had shocks delivered. His device is being monitored remotely through the [facility] office. We were able to download the recent report dated 05/18/2024. There is no atrial fibrillation noted on this report. ECG today showing an irregular wide-complex rhythm possibly with PVCs. Perhaps some beats just ROLLER pacing versus not. Irregularity potentially concerning for [...] Recently had iliac artery stent done through [facility] I am told. He follows with [facility] vascular for his PVD. 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 Continue aspirin/Plavix/statin I have reviewed most recent lipid profile through [facility]. Lipids well-controlled. Should maintain his LDL [...] a defibrillator in place he is a [place] Heart Association class III patient with a recurrent hospitalization for heart failure I explained risk benefits and alternatives to him regarding a CardioMEMS implant which we will do at [facility]. Assessment & Plan (09/07/2022 10:46 AM EST): This patient underwent multivessel bypass surgery EF is 35% with an ICD implant he is not having any heart failure or anginal type symptoms and is very stable Biventricular congestive heart failure 2 Assessment & Plan (07/14/2024 1:20 PM EDT): Still denying symptoms of congestive heart failure He does have a ROLLER-D Warm/wet on exam +1 pitting edema bilaterally [...] and patient to follow-up with his primary water mechanic Dr. Saleem in 3 months to review [...] Description 05/01/2025 12:00 PM EDT Office Visit [facility] [address] [place] [address] 3rd Floor, [address] [place], [place] [phone] Rome Saleem DO Shortness of breath (Primary Dx); Atherosclerosis of [place] coronary artery of [place] heart without angina pectoris; PVD (peripheral vascular [...] Description 09/17/2025 11:15 AM EST Office Visit [facility] [address] [facility] 3rd Floor, [address] [place], [place] [id number] Rome Saleem DO [address] [facility] [address] [place] [address] [email or web address] Health Maintenance Due Date Last Done Comments [...] this topic Medical Devices Implanted Type Area Metal Off Bearer Device Identifier Shelf Expiration Date Model / Serial / Lot Sensor Pulmonary Artery Delivery System Cardiomems - Sxdtyge Implanted:Qty : 1 on 10/06/2023 by Rome Saleem DO at [facility] Implantable Monitor Left: Lung Nexthink [id number] 11/22/2024 CM PATIENT SYSTEM / XDTYGE / Pacemaker Pacemaker Chest Wall Prosthetic Joint Bilateral Knees Prosthetic Joint Description:bilat. knees [place] Right Femur [place] Right: Femur Screw In Back Screw Back Stent In Left Leg Stent Leg Stent Absolute Pro 7mm 40mm 135cm .035in Otw Vascular Nickel Titanium Self-Expandin g External Iliac Artery Tri Axial Radiopaque Marker Sterile Disp - [id number] Implanted:Qty : 1 on 02/12/2021 by Rome Saleem DO at [facility] Stent DUARTE VASCULAR [id number] 08/03/2022 [id number] Description:DISTAL SFA Insurance MEDICARE PART A & B Member Subscriber Plan / Payer (Ef fective 2006-Present) Name:Arnel Quintana Member ID:[id number] Relation to Subscriber:Self Name:Arnel Quintana Subscriber ID:[id number] Payer ID:[id number] Group ID:Not on file Type:Medicare Address: [facility] [employer] [facility] [address] [place] [address] [facility] PARTIAL [facility] MEDICARE SUPPLEMENT MED[place] [phone] [facility] PARTIAL MEDICARE SUPPLEMENT MEDICARE PART A & B [facility] PARTIAL Member Subscriber Plan / Payer (Ef fective 2020-Present) Name:Arnel Quintana Relation to Subscriber:Self Name:Arnel Quintana Payer ID:Not on file Group ID:Not on file Type:Medicaid Address: [address] MEDICARE SUPPLEMENT MEDICARE PART A & B HEALTH SAFETY NET PARTIAL HEALTH [place] MEDICARE SUPPLEMENT MEDICARE PART A & B [place] SAFETY NET PARTIAL Member Subscriber Plan / Payer (Ef fective 2020-Present) Name:EdisonsunnyShyla huffvin Relation to Subscriber:Self Name:Arnel Quintana Payer ID:Not on file Group ID:Not on file Type:Medicaid Address: [address] MEDICARE SUPPLEMENT MEDICARE PART A & B Member Subscriber Plan / Payer (Ef fective 2006-Present) Name:Arnel Quintana Member ID:[id number] Relation to Subscriber:Self Name:Arnel Quintana Subscriber ID:[id number] Payer ID:[id number] Group ID:Not on file Type:Medicare Address: [employer] [address] [place] [address] [facility] PARTIAL Member Subscriber Plan / Payer (Ef fective 2020-Present) Name:Arnel Quintana Relation to Subscriber:Self Name:Arnel Quintana Payer ID:Not on file Group ID:Not on file Type:Medicaid Address: [address] MEDICARE SUPPLEMENT MEDICARE PART A & B PARTIAL Member Subscriber Plan / Payer (Ef fective 2020-Present) Name:Arnel Quintana Relation to Subscriber:Self Name:Arnel Quintana Payer ID:Not on file Group ID:Not on file Type:Medicaid Address: [address] MEDICARE SUPPLEMENT MEDICARE PART A & B HEALTH SAFETY NET PARTIAL Member Subscriber Plan / Payer (Ef fective 2020-Present) Name:Arnel Quintana Relation to Subscriber:Self Name:Arnel Quintana Payer ID:Not on file Group ID:Not on file Type:Medicaid Address: [address] MEDICARE SUPPLEMENT MEDICARE PART A & B HEALTH SAFETY NET PARTIAL HEALTH [place] MEDICARE SUPPLEMENT Advance Directives For more information, please contact: [phone] (9AM - 5PM Noreen/[facility], Wednesday-Wednesday) * Full Code (Latest Code Status on File) Date Activated Date Inactivated Comments 10/06/2023 7:16 AM Question Answer Comments Code Status Confirmed With: Patient Code Status Communicated To: Other (specify belo w) Code Discussion Comments: In agricultural labor camp manager * Full Code Date Activated Date Inactivated Comments 02/12/2021 6:40 AM 10/06/2023 7:16 AM Question Answer Comments Code Status Confirmed With: Other (specify below ) Code Discussion Comments: Transcribed from order Care Teams Concrete Stone Finisher Relationship Specialty Start Date End Date Hemal Ball PA [address] [place], [place] [address] [address] [place] [address] [email or web address] PCP - General Physician Loader 05/31/24 Additional Source Comments The information contained in this document represents components of the legal health record. It is not the complete legal health record.[facility]
--- OUTSIDE RECORDS SUMMARY | 2025-07-27 12:28 | XMS_ITS | Encounter Summary ---
Author Organization [facility] Address [address] [facility] [address] [place] [address] Phone Care Team Providers Care Delinquency Counselor Name Role Phone Maggie Franz MD Primary Care Provider [phone] Hemal Ball Primary Care Provider [phone] Encounter Details Date Type Department Care Team (Late Contact Info) Description 09/30/2017 Procedure Pass [facility] [address] [place] [address] Social History Tobacco Use Types Packs/Day Years [...] Description 09/17/2025 11:15 AM EST Office Visit [facility] [address] [facility] 3rd Floor, [address] [place] [address] Rome Saleem DO [address] [facility] [address] [place] [address] documented as of this encounter Visit Diagnoses Not on filedocumented in this encounter Care Teams Delinquency Counselor Relationship Specialty Start Date End Date Maggie Franz MD [address] [place] [address] PCP - General 09/07/17 05/30/24 Hemal Ball PA [address] [address] [email or web address] PCP - General Physician Highway Painter Helper 05/31/24 documented as of this encounter Additional Source Comments The information contained in this document represents components of the legal health record. It is not the complete legal health record.[facility]
--- OUTSIDE RECORDS SUMMARY | 2025-07-27 12:28 | XMS_ITS | Clinical Summary ---
Author Organization [facility] Address [address] [address] Phone Care Team Providers Care Office Machines Teacher Name Role Phone Yocasta Cary MD Primary Care Provider [phone] Allergies Active Allergy Reactions Criticality Noted Date [...] day Do not crush or chew. Active sacubitril-valsar mayo (Entresto) 24-26 MG per tablet Take 1 tablet by mouth in the morning and 1 tablet in the evening. Active cetirizine (ZyrTEC) 10 MG tablet 1 tablet Orally Once a day 09/16/20 20 Active Cyanocobalamin (VITAMIN B-12 CR PO) Take by mouth Active Ferrous Zzlwuvmtt-N-Vjinh Acid (IRON-C PO) Take 65 mg by mouth Active Empagliflozin (Jardiance) 10 MG tablet Take 10 mg by mouth 1 (one) time each day in the morning Active levalbuterol (XOPENEX) 1.25 MG/3ML nebulizer solution Take 1 ampule by nebulization in the morning and 1 ampule in the evening. Active Sodium Zirconium Cyclosilicate 5 g pack Take 5 g by mouth 5 (five) times a week: Wednesday through Wednesday 90 each 07/24/20 25 026 Active Active Problems Problem Noted Date Diagnosed Date Stage 3b chronic kidney disease 07/24/2025 Unintentional weight loss 05/30/2025 Systolic heart failure [...] Encounters Date Type Department Care Team Description 07/24/2025 1:15 PM EDT Office Visit [facility] [address] [phone] David Oviedo MD Stage 3a chronic kidney disease (HCC) (Primary Dx); Essential (primary) hypertension 07/11/2025 Office Communication [facility] [address] [phone] David Oviedo MD 06/28/2025 Documentation Only [facility] [address] [phone] Alberta Espinosa MA 06/24/2025 Telephone [facility] [address] [phone] Madai Dacosta MD 05/30/2025 3:45 PM EDT Office Visit [facility] [address] [phone] David Oviedo MD Stage 3a chronic kidney disease (HCC) (Primary Dx); Renal osteodystrophy 05/30/2025 Office Communication [facility] [address] [phone] David Oviedo MD from Last 3 Months [...] Visit [facility] [address] [address] David Oviedo MD [address] [address] 10/24/2025 1:00 PM EST Office Visit [facility] [address] [phone] [facility] [address] [address] Health Maintenance Due Date Last Done Comments [...] chronic kidney disease (HCC) Essential (primary) hypertension RENAL FUNCTION PANEL Routine 07/11/2025 11:06 AM EDT Stage 3a chronic kidney disease (HCC) MAGNESIUM Routine 06/23/2025 9:55 AM EDT Stage [...] 04/28/2025 from Last 3 Months Results * (ABNORMAL) Renal function panel (07/24/2025 2:57 PM EDT) Only the most recent of3 resultswithin the time period is included. Glucose 95 70 - 99 mg/dL [facility] BUN 40(H) 8 - 27 mg/dL [facility] Creatinine 1.47(H) 0.76 - 1.27 mg/dL [facility] eGFR CKD-EPI CR 2020 47(L) >59 mL/min/1.7 3 [facility] BUN/Creatinine Ratio 27(H) 10 - 24 [facility] Sodium 146(H) 134 - 144 mmol/L [facility] Potassium 4.5 3.5 - 5.2 mmol/L [facility] Chloride 109(H) 96 - 106 mmol/L [facility] Bicarbonate (CO2) 15(L) 20 - 29 mmol/L [facility] Calcium 9.5 8.6 - 10.2 mg/dL [facility] Phosphorus 3.6 2.8 - 4.1 mg/dL [facility] Albumin 4.4 3.7 - 4.7 g/dL [facility] Blood Venous blood / Unknown 07/24/2025 2:57 PM EDT 07/24/2025 David Oviedo MD LAB BLOOD ORDERABLES Final Re sult Performing Organization Address City/[facility]/ZIP Co de Phone Number [facility] [address] [place] [address] * Microscopic Examination (06/23/2025 9:55 AM EDT) WBC, Urine None seen 0 - 5 /hpf [facility] RBC, Urine None seen 0 - 2 /hpf [facility] Squamous Epithelial, Urine 0-10 0 - 10 /hpf [facility] Casts None seen None seen /lpf [facility] Bacteria, Urine None seen None seen/Few [facility] 06/23/2025 9:55 AM EDT 06/23/2025 David Oviedo MD LAB MICROBIOLOGY - GENERAL OR DERABLES Final Result [facility] [address] [place] [address] * (ABNORMAL) Protein, Total, Random Urine w/Creatinine (Protein/Creat Ratio) (06/23/2025 9:55 AM EDT) Creatinine, Ur 11.7 Not Estab. mg/dL [facility] Protein, Ur 11.7 Not Estab. mg/dL [facility] Urine Protein/Creati nine Ratio 1,000(H) 0 - 200 mg/g creat [facility] Urine Urine specimen obtained by clean catch procedure / Unknown 06/23/2025 9:55 AM EDT 06/23/2025 David Oviedo MD LAB URINE ORDERABLES Final Re sult Performing Organization Address City/[facility] Co de Phone Number [facility] [address] [place] [address] * (ABNORMAL) Urine Albumin / Creatinine Ratio (06/23/2025 9:55 AM EDT) Albumin, Urine 32.6 Not Estab. ug/mL [facility] Albumin/Creatin ine Ratio 279(H) 0 - 29 mg/g creat [facility] Comment: Normal: 0 - 29 Moderately increased: 30 - 300 Severely increased: >300 Urine Urine specimen obtained by clean catch procedure / Unknown 06/23/2025 9:55 AM EDT 06/23/2025 David Oviedo MD LAB URINE ORDERABLES Final Re sult Performing Organization Address City/[facility]/ZIP Co de Phone Number [facility] [address] [place] [address] * (ABNORMAL) Vitamin D 25 Hydroxy (06/23/2025 9:55 AM EDT) Vitamin D, 25-OH, Total 16.4(L) 30.0 - 100.0 ng/mL [facility] Comment: Vitamin D deficiency has been defined by the Ensign of Medicine and an Endocrine Society practice guideline as a level of serum 25-OH vitamin D less than 20 ng/mL (1,2). The Endocrine Society went on to further define vitamin D insufficiency as a level between 21 and 29 ng/mL (2). 1. IOM (Ensign of Medicine). 2010. Dietary reference intakes for [...] BLOOD ORDERABLES Final Re sult [facility] [address] [place] [address] * (ABNORMAL) Urinalysis with microscopic (06/23/2025 9:55 AM EDT) Specific [place], Urine 1.009 1.005 - 1.030 [facility] pH Urine 6.0 5.0 - 7.5 [facility] Color, Urine Yellow Yellow [facility] Appearance Urine Clear Clear [facility] [place] WBC Esterase Urine Negative Negative [facility] Protein, Ur Trace Negative/Tra ce [facility] Glucose, Ur 1+(A) Negative [facility] Ketones, Urine Negative Negative [facility] [place] [phone] Blood Urine Negative Negative [facility] Bilirubin Urine Negative Negative [facility] [place] Urobilinogen Urine 0.2 0.2 - 1.0 mg/dL [facility] Nitrite, Urine Negative Negative [facility] [place] Microscopic Examination Comment [facility] [phone] Comment:Microscopic follows if indicated. Other Microsc. Observations See below: [facility] [phone] Comment:Microscopic was roni cated and was performed. Urine Urine specimen obtained by clean catch procedure / Unknown 06/23/2025 9:55 AM EDT 06/23/2025 Narrative [facility] - 06/25/2025 12:05 AM EDT Specimen Comment: Test(s) Potassium called to edward on 06/24/2025 at 13:22 Specimen Comment: EST us David Oviedo MD LAB URINE ORDERABLES Final Re sult [facility] [address] [place] [address] * (ABNORMAL) CBC (06/23/2025 9:55 AM EDT) WBC 9.6 3.4 - 10.8 x10E3/uL [facility] RBC 3.67(L) 4.14 - 5.80 x10E6/uL [facility] Hemoglobin 11.5(L) 13.0 - 17.7 g/dL [facility] Hematocrit 37.3(L) 37.5 - 51.0 % [facility] MCV 102(H) 79 - 97 fL [facility] MCH 31.3 26.6 - 33.0 pg [facility] MCHC 30.8(L) 31.5 - 35.7 g/dL [facility] RDW 14.3 11.6 - 15.4 % [facility] Platelets 309 150 - 450 x10E3/uL [facility] Blood Venous blood / Unknown 06/23/2025 9:55 AM EDT 06/23/2025 David Oviedo MD LAB BLOOD ORDERABLES Final Re sult Performing Organization Address [facility]/ZIP Co de Phone Number [facility] [address] [place] [address] * PTH, Intact (06/23/2025 9:55 AM EDT) Pathologist [facility] PTH 57 15 - 65 pg/mL [facility] Blood Venous blood / Unknown 06/23/2025 9:55 AM EDT 06/23/2025 David Oviedo MD LAB BLOOD ORDERABLES Final Re sult Performing Organization Address [facility] de Phone Number [facility] [address] [place] [address] * (ABNORMAL) Magnesium (06/23/2025 9:55 AM EDT) Pathologist [facility] Magnesium 1.4(L) 1.6 - 2.3 mg/dL [facility] Blood Venous blood / Unknown 06/23/2025 9:55 AM EDT 06/23/2025 David Oviedo MD LAB BLOOD ORDERABLES Final Re sult Performing Organization Address [facility] de Phone Number [facility] [address] [place] [address] * (ABNORMAL) ALT EXT LABS (05/24/2025) Only the most recent of2 resultswithin the time period is included. WBC 12.2(A) 3.3 - 10.0 10*3/ML Red Blood Cell Count 3.81 Hemoglobin 11.8(A) 13.5 - 17.5 Hematocrit 38.3(A) 41.0 - 53.0 Platelets 308 150 - 399 10*3/UL Spec Grav, UA 1.010 05/24/2025 Historical Provider LAB BLOOD ORDERABLES Olive l Result from Last 3 Months Insurance Medicare [facility] Medicare [facility] Care Teams Office Machines Teacher Relationship Specialty Start Date End Date Yocasta Cary MD [address] [place] [address] PCP - General Internal Medicine 05/08/25
--- OUTSIDE RECORDS SUMMARY | 2025-07-27 12:28 | XMS_ITS | Encounter Summary ---
Author Organization [facility] Address [address] [place] [address] Phone Care Team Providers Care Marketing Performance Analyst Name Role Phone Hemal Ball Primary Care Provider [phone] Encounter Details Date Type Department Care Team (Late st Contact Info) Description 05/31/2024 Procedure Pass [facility] [address] [place] [address] Social History Tobacco Use Types Packs/Day Years [...] Description 09/17/2025 11:15 AM EST Office Visit [facility] [address], [address] [place] [address] Rome Saleem, [address] [facility] [address] [place] [address] [email or web address] documented as of this encounter Visit Diagnoses Not on filedocumented in this encounter Care Teams Marketing Performance Analyst Relationship Specialty Start Date End Date Hemal Ball PA [address] [place] [address] [email or web address] PCP - General Physician Computational Linguist 05/31/24 documented as of this encounter Additional Source Comments The information contained in this document represents components of the legal health record. It is not the complete legal health record.[facility]
--- OUTSIDE RECORDS SUMMARY | 2025-07-27 12:28 | XMS_ITS | Encounter Summary ---
Author Organization [facility] Address [address] [place] [address] Phone Care Team Providers Care Tool Programmer Name Role Phone Maggie Franz MD Primary Care Provider [phone] Hemal Ball Primary Care Provider [phone] Encounter Details Date Type Department Care Team (Late Contact Info) Description 02/12/2021 Procedure Pass [facility] [address] [place] [address] Social History Tobacco Use Types Packs/Day Years [...] Description 09/17/2025 11:15 AM EST Office Visit [facility] [address] [facility] [address] [facility] 3rd Floor, [address] [place] [address] Rome Saleem DO [address] [facility] [address] [place] [address] [email or web address] documented as of this encounter Visit Diagnoses Not on filedocumented in this encounter Care Teams Tool Programmer Relationship Specialty Start Date End Date Maggie Franz MD [address] [place] [address] PCP - General 09/07/17 05/30/24 Hemal Ball PA [address] [address] [email or web address] PCP - General Physician Interactive Media Marketing Director 05/31/24 documented as of this encounter Additional Source Comments The information contained in this document represents components of the legal health record. It is not the complete legal health record.[facility]
== END 2025-07-27 10:44 | disposition home or self-care (01) ==
LOC: HO.RADIR 10:43
PROVIDERS: Visit Provider Nurse Practitioner Family
DX: Z13.89 Encounter for screening for other disorder (principal)

== ENCOUNTER 2025-08-01 13:03 | Outpatient (AMB) | payer MEDICARE, OTHER, SELFPAY ==
[2025-08-01 13:27] VITALS: BP 100/60; TEMP 36.4
--- NOTE | 2025-08-01 13:27 | MHC.OFFVIS ---
Vital Signs 08/01/25 13:27 BP 100/60 Temp 97.6 F Intake Visit Reasons: pulmonology reff/bacterial infection Allergies oxycodone Adverse Reaction (Verified 08/01/25 13:28) Hallucinations latex Allergy (Uncoded 08/01/25 13:28) rash HPI Comments Details: History of Present Illness The patient is an 84-year-old male presenting with concerns regarding the management of bronchiectasis exacerbation possibly related to Pseudomonas aeruginosa colonization. The patient was referred by his claims support specialist due to concerns that Pseudomonas might be exacerbating his bronchiectasis symptoms. A history of intensive treatment for bronchiectasis is noted, with initial isolation of Pseudomonas aeruginosa showing gotti sensitivity. Despite treatment with Levaquin, there was no improvement, leading to a regimen of inhaled tobramycin and subsequent ertapenem therapy, which was truncated at 11 days. There have been no fever or chills, and the patient reports maintaining usual activity levels despite persistent sputum production. Review of Systems - Respiratory: Reports yellow sputum production; Denies fever, chills, or increased fatigue during activity. - General: Reports stable activity level. - No other systems were discussed. Physical Exam - Vitals- Stable vital signs; afebrile. - HEENT- Ears and oropharynx appear clear; no adenopathy observed. - Respiratory- Lungs are clear to auscultation bilaterally; no abnormal findings on percussion posteriorly. - Cardiovascular- Regular rate and rhythm; normal S1, S2. - Gastrointestinal- Abdomen is soft and non-tender. - Extremities- No tenderness or edema noted. - Neurological- Non-focal neurological examination. - Skin- Clear. Results - Labs: Isolation of Pseudomonas aeruginosa from sputum, gotti-sensitive. - Imaging: Chest X-ray negative as of 07/17. Plan Patient was informed and verbally consented to the use of an ambient scribe for clinic note documentation during this visit. 1. Bronchiectasis, uncomplicated J47.9 HCC 112 Discontinue all antipseudomonal intravenous and oral agents. Consider azithromycin 250 mg PO three times a week if suitable. No active treatment is necessary given stable condition and negative chest X-ray. 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 Focus on management of core bronchiectasis symptoms, No follow-up required unless there is a change in condition. Discussion Notes I discussed with the patient that his condition related to Pseudomonas colonization is stable, and complete eradication of this pathogen might not be feasible. Risks associated with prolonged antibiotic use were explained, and therefore, discontinuation of current antipseudomonal therapies was recommended. We considered azithromycin for its anti-inflammatory effects, provided there are no QT prolongation concerns. I advised the patient and his family that he does not need to return for a specific follow-up unless symptoms change. Medical Decision Making The patient presents with stable bronchiectasis in the context of Pseudomonas aeruginosa colonization. Past treatments have been extensive, including multiple antibiotic regimens. Recent chest imaging shows no active infection. Given the lack of acute symptoms or deteriorating condition, ongoing aggressive antimicrobial therapy is deemed unnecessary. Discontinuation of antipseudomonal therapy, with possible use of azithromycin for anti-inflammatory benefits, was considered. This aligns with the goal of maintaining symptom management while minimizing treatment burden and complications. Patient Instructions - Discontinue all antibiotics, including inhaled tobramycin. - Monitor symptoms of bronchiectasis and return if symptoms worsen. - Consider azithromycin if no previous heart issues; consult primary care if needed. - Maintain regular care and lifestyle for bronchiectasis management. [facility] Medical History (Updated 07/02/25 @ 16:01 by Georgie Markham NP) Other mechanical complication of internal fixation device of vertebrae, initial encounter Discitis of lumbosacral region Osteomyelitis Social History Patient Tobacco Use Status: Former Tobacco user Tobacco use type: Cigarette Cigarette Packs Per Day: 1 Years Smoked: 20 years/ Quit in 1977 Physical Exam Vital Signs: Last Vital Signs Temp 97.6 F 08/01/25 13:27 BP 100/60 08/01/25 13:27 Assessment & Plan Assessment & Plan (1) Pseudomonas aeruginosa infection: Code(s): A49.8 - Other bacterial infections of unspecified site Category: Medical Plan: na Coding Level of Care Code New Pt Level 3 (51818) Diagnoses Pseudomonas aeruginosa infection A49.8
--- OUTSIDE RECORDS SUMMARY | 2025-08-01 16:32 | XMS_ITS | Encounter Summary ---
Author Organization [facility] Address [address] [place] [address] Phone Care Team Providers Care Sales Floor Manager Name Role Phone Maggie Franz MD Primary Care Provider [phone] Hemal Ball Primary Care Provider [phone] Encounter Details Date Type Department Care Team (Late st Contact Info) Description 10/06/2023 Procedure Pass [facility] [address] [place] [address] Social History Tobacco Use Types Packs/Day Years [...] 7:16 AM EST Marion Nichols RN * [place] Suicide Severity Rating Scale (Screener/Recent Self-Report) Question Answer Date of Assessment Author 2. Non-Specific Active Suici oseas Thoughts (Past 1 Month) No 10/06/2023 7:16 AM Lizy Martel RN documented as of this encounter Plan of Treatment Upcoming Encounters Date Type Department Care Team (Late st Contact Info) Description 09/17/2025 11:15 AM EST Office Visit [facility] [address] [facility] 3rd Floor, [address] [place] [address] Rome Saleem DO [address] [facility] [address] [place] [address] [email or web address] documented as of this encounter Visit Diagnoses Not on filedocumented in this encounter Care Teams Sales Floor Manager Relationship Specialty Start Date End Date Maggie Franz MD [address] [place] [address] PCP - General 09/07/17 05/30/24 Hemal Ball PA [address] [facility] [address] [place] [address] [email or web address] PCP - General Physician Pharmacy Retail Support Specialist 05/31/24 documented as of this encounter Additional Source Comments The information contained in this document represents components of the legal health record. It is not the complete legal health record.[facility]
--- OUTSIDE RECORDS SUMMARY | 2025-08-01 16:32 | XMS_ITS | Clinical Summary ---
Author Organization [facility] Address [address] [address] Phone Care Team Providers Care Dispensing And Measuring Optician Name Role Phone Yocasta Cary MD Primary Care Provider [phone] Allergies Active Allergy Reactions Criticality Noted Date [...] CR PO) Take by mouth Active Ferrous Vdpqwuobc-W-Kcpif Acid (IRON-C PO) Take 65 mg by [...] Office Visit [facility] [address] [address] David Oviedo MD Stage 3a chronic kidney disease (HCC) (Primary Dx); Essential (primary) hypertension 06/28/2025 Documentation Only [facility] [address] [phone] Alberta Espinosa [place] 06/24/2025 Telephone [facility] [address] [phone] Madai Dacosta MD 05/30/2025 3:45 PM EDT Office Visit [facility] [address] [phone] David Oviedo MD Stage 3a chronic kidney disease (HCC) (Primary Dx); Renal osteodystrophy from Last 3 Months Immunizations Immunization Administration [...] [facility] [address] [phone] David Oviedo MD [address] [phone] 10/24/2025 1:00 PM EST Office [facility] [address] [phone] Renate Falk ARNP [address] [phone] Health Maintenance Due Date Last Done Comments Influenza Vaccine (#1) 2025 , 07/28/2019, 07/11/2018, Additional history exists Pneumococcal Vaccine: [...] AM EDT ALT EXT LABS Routine 05/24/2025 from Last 3 Months Results * (ABNORMAL) Renal function panel (07/24/2025 2:57 PM EDT) Only the most recent of3 resultswithin the time period is included. Glucose 95 70 - 99 mg/dL [facility] BUN 40(H) 8 - 27 mg/dL [facility] Creatinine 1.47(H) 0.76 - 1.27 mg/dL [facility] eGFR CKD-EPI CR 2020 47(L) >59 mL/min/1.7 3 [facility] BUN/Creatinine Ratio 27(H) 10 - 24 [facility] Sodium 146(H) 134 - 144 mmol/L [facility] Potassium 4.5 3.5 - 5.2 mmol/L [facility] Chloride 109(H) 96 - 106 mmol/L [facility] Bicarbonate (CO2) 15(L) 20 - 29 mmol/L [facility] Calcium 9.5 8.6 - 10.2 mg/dL [facility] Phosphorus 3.6 2.8 - 4.1 mg/dL [facility] Albumin 4.4 3.7 - 4.7 g/dL [facility] Blood Venous blood / Unknown 07/24/2025 2:57 PM EDT 07/24/2025 David Oviedo MD LAB BLOOD ORDERABLES Final Re sult [facility] [address] [place] [address] * Microscopic Examination (06/23/2025 9:55 AM EDT) WBC, Urine None seen 0 - 5 /hpf [facility] RBC, Urine None seen 0 - 2 /hpf [facility] Squamous Epithelial, Urine 0-10 0 - 10 /hpf [facility] Casts None seen None seen /lpf [facility] Bacteria, Urine None seen None seen/Few [facility] 06/23/2025 9:55 AM EDT 06/23/2025 David Oviedo MD LAB MICROBIOLOGY - GENERAL OR DERABLES Final Result [facility] [address] [place] [address] * (ABNORMAL) Protein, Total, Random Urine w/Creatinine (Protein/Creat Ratio) (06/23/2025 9:55 AM EDT) Creatinine, Ur 11.7 Not Estab. mg/dL [facility] Protein, Ur 11.7 Not Estab. mg/dL [facility] Urine Protein/Creati nine Ratio 1,000(H) 0 - 200 mg/g creat [facility] Urine Urine specimen obtained by clean catch procedure / Unknown 06/23/2025 9:55 AM EDT 06/23/2025 David Oviedo MD LAB URINE ORDERABLES Final Re sult Performing Organization Address City[facility]/ZIP Co de Phone Number [facility] [place] [address] [place] [address] * (ABNORMAL) Urine Albumin / Creatinine Ratio (06/23/2025 9:55 AM EDT) Albumin, Urine 32.6 Not Estab. ug/mL [facility] Albumin/Creatin ine Ratio 279(H) 0 - 29 mg/g creat [facility] Comment: Normal: 0 - 29 Moderately increased: 30 - 300 Severely increased: >300 Urine Urine specimen obtained by clean catch procedure / Unknown 06/23/2025 9:55 AM EDT 06/23/2025 David Oviedo MD LAB URINE ORDERABLES Final Re sult Performing Organization Address [facility] Co de Phone Number [facility] [address] [place] [address] * (ABNORMAL) Vitamin D 25 Hydroxy (06/23/2025 9:55 AM EDT) Vitamin D, 25-OH, Total 16.4(L) 30.0 - 100.0 ng/mL [facility] Comment: Vitamin D deficiency has been defined by the [place] of [employer] and an Endocrine Society practice guideline as a level of serum 25-OH vitamin D less than 20 ng/mL (1,2). The Endocrine Society went on to further define vitamin D insufficiency as a level between 21 and 29 ng/mL (2). 1. IOM ([place] of Medicine). 2010. Dietary reference intakes for calcium and D. [place]: The National Academies Press. 2. Jose TRUONG, Bar DUMAS, Vi NICHOLSON, et al. Evaluation, treatment, and prevention of vitamin D deficiency: an Endocrine Society clinical practice guideline. JCEM. 2010; 96(7):1911-30. Blood Venous blood / Unknown 06/23/2025 9:55 AM EDT 06/23/2025 us David Oviedo MD LAB BLOOD ORDERABLES Final Re sult [facility] [address] [place] [address] * (ABNORMAL) Urinalysis with microscopic (06/23/2025 9:55 AM EDT) Specific [place], Urine 1.009 1.005 - 1.030 [facility] pH Urine 6.0 5.0 - 7.5 [facility] Color, Urine Yellow Yellow [facility] [phone] Appearance Urine Clear Clear [facility] [place] WBC Esterase Urine Negative Negative [facility] [phone] Protein, Ur Trace Negative/Tra ce [facility] Glucose, Ur 1+(A) Negative [facility] Ketones, Urine Negative Negative [facility] [place] Blood Urine Negative Negative [facility] Bilirubin Urine Negative Negative [facility] [place] Urobilinogen Urine 0.2 0.2 - 1.0 mg/dL [facility] Nitrite, Urine Negative Negative [facility] [place] Microscopic Examination Comment [facility] Comment:Microscopic follows if indicated. Other Microsc. Observations See below: [facility] [phone] Comment:Microscopic was roni cated and was performed. Urine Urine specimen obtained by clean catch procedure / Unknown 06/23/2025 9:55 AM EDT 06/23/2025 Narrative [facility] - 06/25/2025 12:05 AM EDT Specimen Comment: Test(s) Potassium called to edward on 06/24/2025 at 13:22 Specimen Comment: EST us David Oviedo MD LAB URINE ORDERABLES Final Re sult [facility] [address] [place] [address] * (ABNORMAL) CBC (06/23/2025 9:55 AM EDT) Pathologist [facility] WBC 9.6 3.4 - 10.8 x10E3/uL [facility] RBC 3.67(L) 4.14 - 5.80 x10E6/uL [facility] Hemoglobin 11.5(L) 13.0 - 17.7 g/dL [facility] Hematocrit 37.3(L) 37.5 - 51.0 % [facility] MCV 102(H) 79 - 97 fL [facility] MCH 31.3 26.6 - 33.0 pg [facility] MCHC 30.8(L) 31.5 - 35.7 g/dL [facility] RDW 14.3 11.6 - 15.4 % [facility] Platelets 309 150 - 450 x10E3/uL [facility] Blood Venous blood / Unknown 06/23/2025 9:55 AM EDT 06/23/2025 us David Oviedo MD LAB BLOOD ORDERABLES Final Re sult [facility] [address] [place] [address] * PTH, Intact (06/23/2025 9:55 AM EDT) Pathologist [facility] PTH 57 15 - 65 pg/mL [facility] Blood Venous blood / Unknown 06/23/2025 9:55 AM EDT 06/23/2025 David Oviedo MD LAB BLOOD ORDERABLES Final Re sult [facility] [address] [place] [address] * (ABNORMAL) Magnesium (06/23/2025 9:55 AM EDT) Pathologist [facility] Magnesium 1.4(L) 1.6 - 2.3 mg/dL [facility] Blood Venous blood / Unknown 06/23/2025 9:55 AM EDT 06/23/2025 David Oviedo MD LAB BLOOD ORDERABLES Final Re sult Performing Organization Address City[facility]/ZIP Co de Phone Number [facility] [address] [place] [address] * (ABNORMAL) ALT EXT LABS (05/24/2025) Pathologist [facility] WBC 12.2(A) 3.3 - 10.0 10*3/ML Red Blood Cell Count 3.81 Hemoglobin 11.8(A) 13.5 - 17.5 Hematocrit 38.3(A) 41.0 - 53.0 Platelets 308 150 - 399 10*3/UL Spec Grav, UA 1.010 05/24/2025 Historical Provider LAB BLOOD ORDERABLES Olive l Result from Last 3 Months Insurance Medicare [facility] Medicare [facility] Care Teams Dispensing And Measuring Optician Relationship Specialty Start Date End Date Yocasta Cary MD [address] [place] [address] PCP - General Internal Medicine 05/08/25
--- OUTSIDE RECORDS SUMMARY | 2025-08-01 16:33 | XMS_ITS | Clinical Summary ---
Author Organization [facility] Address [address] [facility] [address] [place] [address] Phone Care Team Providers Care Network Engineer Name Role Phone Hemal Ball Primary Care Provider [phone] Allergies Active Allergy Reactions Criticality Noted Date [...] Active ferrous sulfate 325 mg (65 mg [place] iron) tablet Take 325 mg by mouth [...] (PLAVIX) 75 mg tabletIndicatio ns:Atherosclero sis of [place] coronary artery of [place] heart without angina pectoris TAKE 1 TABLET [...] EDT): This is being monitored through the [place] office I did verify that there was an interrogation performed approximately a year ago looks like he only has an appointment scheduled later this year for repeat in person device interrogation Assessment & Plan (05/31/2024 5:29 PM EDT): Patient tells me he did have his LIE DETECTOR OPERATOR-D placed in 2019. From what he tells me this was done for primary prevention with his LVEF less than 35% at that time. He is not aware of having ever had shocks delivered. His device is being monitored remotely through the [place] office. We were able to download the recent report dated 05/18/2024. There is no atrial fibrillation noted on this report. ECG today showing an irregular wide-complex rhythm possibly with PVCs. Perhaps some beats just LIE DETECTOR OPERATOR pacing versus not. Irregularity potentially concerning for [...] Recently had iliac artery stent done through [facility] I am told. He follows with [facility] vascular for his PVD. 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 Continue aspirin/Plavix/statin I have reviewed most recent lipid profile through [facility]. Lipids well-controlled. Should maintain his LDL [...] a defibrillator in place he is a [place] Heart Association class III patient with a recurrent hospitalization for heart failure I explained risk benefits and alternatives to him regarding a CardioMEMS implant which we will do at . Assessment & Plan (09/07/2022 10:46 AM EST): This patient underwent multivessel bypass surgery EF is 35% with an ICD implant he is not having any heart failure or anginal type symptoms and is very stable Biventricular congestive heart failure 2 Assessment & Plan (07/14/2024 1:20 PM EDT): Still denying symptoms of congestive heart failure He does have a LIE DETECTOR OPERATOR-D Warm/wet on exam +1 pitting edema bilaterally [...] and patient to follow-up with his primary refrigeration houseman Dr. Saleem in 3 months to review [...] Description 05/01/2025 12:00 PM EDT Office Visit [facility] [address] [place] [address] 3rd Floor, [address] [place], [place] [id number] Rome Saleem DO Shortness of breath (Primary Dx); Atherosclerosis of [place] coronary artery of [place] heart without angina pectoris; PVD (peripheral vascular [...] Description 09/17/2025 11:15 AM EST Office Visit [facility] [address] [facility] [address]rd Floor, [address] [place], [place] [id number] Rome Saleem DO [address] [facility] [address] [place] [address] [email or web address] Health Maintenance Due Date Last Done Comments [...] this topic Medical Devices Implanted Type Area Network Engineering Advisor Device Identifier Shelf Expiration Date Model / Serial / Lot Sensor Pulmonary Artery Delivery System Cardiomems - [id number] Implanted:Qty : 1 on 10/06/2023 by Rome Saleem DO at Implantable Monitor Left: Lung [employer] [id number] 11/22/2024 CM PATIENT SYSTEM / XDTYGE / Pacemaker Pacemaker Chest Wall Prosthetic Joint Bilateral Knees Prosthetic Joint Description:bilat. knees [place] Right Femur [place] Right: Femur Screw In Back Screw Back Stent In Left Leg Stent Leg Stent Absolute Pro 7mm 40mm 135cm .035in Otw Vascular Nickel Titanium Self-Expandin g External Iliac Artery Tri Axial Radiopaque Marker Sterile Disp - [id number] Implanted:Qty : 1 on 02/12/2021 by Rome Saleem DO at [facility] [id number] 08/03/2022 [id number] Description:DISTAL SFA Insurance MEDICARE PART A & B [facility] PARTIAL [facility] MEDICARE SUPPLE[place] [id number] [employer] PARTIAL MEDICARE SUPPLEMENT MEDICARE PART A & B [employer] PARTIAL Member Subscriber Plan / Payer (Ef fective 2020-Present) Name:Arnel Quintana Relation to Subscriber:Self Name:Arnel Quintana Payer ID:Not on file Group ID:Not on file Type:Medicaid Address: [address] MEDICARE SUPPLEMENT MEDICARE PART A & B HEALTH SAFETY NET PARTIAL HEALTH [place] MEDICARE SUPPLEMENT MEDICARE PART A & B [employer] SAFETY NET PARTIAL Member Subscriber Plan / Payer (Ef fective 2020-Present) Name:EdisonsunnyShyla huffvin Relation to Subscriber:Self Name:Arnel Quintana Payer ID:Not on file Group ID:Not on file Type:Medicaid Address: [address] MEDICARE SUPPLEMENT MEDICARE PART A & B Member Subscriber Plan / Payer (Ef fective 2006-Present) Name:Arnel Quintana Member ID:[id number] Relation to Subscriber:Self Name:Arnel Quintana Subscriber ID:[id number] Payer ID:[id number] Group ID:Not on file Type:Medicare Address: Locally [facility] [address] [place] [address] [employer] PARTIAL Member Subscriber Plan / Payer (Ef fective 2020-Present) Name:Arnel Quintana Relation to Subscriber:Self Name:Arnel Quintana Payer ID:Not on file Group ID:Not on file Type:Medicaid Address: [address] MEDICARE SUPPLEMENT MEDICARE PART A & B PARTIAL Member Subscriber Plan / Payer (Ef fective 2020-Present) Name:Arnel Quintana Relation to Subscriber:Self Name:Arnel Quintana Payer ID:Not on file Group ID:Not on file Type:Medicaid Address: [address] MEDICARE SUPPLEMENT MEDICARE PART A & B HEALTH SAFETY NET PARTIAL Member Subscriber Plan / Payer (Ef fective 2020-Present) Name:Arnel Quintana Relation to Subscriber:Self Name:Arnel Quintana Payer ID:Not on file Group ID:Not on file Type:Medicaid Address: [address] MEDICARE SUPPLEMENT MEDICARE PART A & B HEALTH SAFETY NET PARTIAL HEALTH [place] MEDICARE SUPPLEMENT Advance Directives For more information, please contact: [phone] (9AM - 5PM Noreen/[facility], Wednesday-Wednesday) * Full Code (Latest Code Status on File) Date Activated Date Inactivated Comments 10/06/2023 7:16 AM Question Answer Comments Code Status Confirmed With: Patient Code Status Communicated To: Other (specify belo w) Code Discussion Comments: In laborer laboratory * Full Code Date Activated Date Inactivated Comments 02/12/2021 6:40 AM 10/06/2023 7:16 AM Question Answer Comments Code Status Confirmed With: Other (specify below ) Code Discussion Comments: Transcribed from order Care Teams Network Engineer Relationship Specialty Start Date End Date Hemal Ball PA [address] [place], [place] [address] [address] [place] [address] [email or web address] PCP - General Physician Maintenance Engineer 05/31/24 Additional Source Comments The information contained in this document represents components of the legal health record. It is not the complete legal health record.[facility]
--- OUTSIDE RECORDS SUMMARY | 2025-08-01 16:33 | XMS_ITS | Encounter Summary ---
Author Organization [facility] Address [address] [place] [address] Phone Care Team Providers Care Event Marketing Intern Name Role Phone Hemal Ball Primary Care Provider [phone] Encounter Details Date Type Department Care Team (Late st Contact Info) Description 05/31/2024 Procedure Pass [facility] [place] [address] [place] [address] Social History Tobacco Use Types Packs/Day Years [...] Description 09/17/2025 11:15 AM EST Office Visit [facility] [address] Floor, [address] [place] [address] Rome Saleem, [address] [facility] [address] [place] [address] [email or web address] documented as of this encounter Visit Diagnoses Not on filedocumented in this encounter Care Teams Event Marketing Intern Relationship Specialty Start Date End Date Hemal Ball PA [address] [place] [address] PCP - General Physician Horse Racing Manager 05/31/24 documented as of this encounter Additional Source Comments The information contained in this document represents components of the legal health record. It is not the complete legal health record.[facility]
--- OUTSIDE RECORDS SUMMARY | 2025-08-01 16:33 | XMS_ITS | Encounter Summary ---
Author Organization [facility] Address [address] [facility] [address] [place] [address] Phone Care Team Providers Care Process Control Operator Name Role Phone Maggie Franz MD Primary Care Provider [phone] Hemal Ball Primary Care Provider [phone] Encounter Details Date Type Department Care Team (Late Contact Info) Description 09/07/2017 Procedure Pass [facility] [address] [place] [address] Social History Tobacco Use Types Packs/Day Years [...] Description 09/17/2025 11:15 AM EST Office Visit [facility] [address] [facility] 3rd Floor, [address] [place] [address] Rome Saleem DO [address] [facility] [address] [place] [address] documented as of this encounter Visit Diagnoses Not on filedocumented in this encounter Care Teams Process Control Operator Relationship Specialty Start Date End Date Maggie Franz MD [address] [place] [address] PCP - General 09/07/17 05/30/24 Hemal Ball PA [address] [address] [email or web address] PCP - General Physician Artist Agent 05/31/24 documented as of this encounter Additional Source Comments The information contained in this document represents components of the legal health record. It is not the complete legal health record.[facility]
--- OUTSIDE RECORDS SUMMARY | 2025-08-01 16:33 | XMS_ITS | Encounter Summary ---
Author Organization [facility] Address [address] [facility] [address] [place] [address] Phone Care Team Providers Care Lead Architect Name Role Phone Maggie Franz MD Primary Care Provider [phone] Hemal Ball Primary Care Provider [phone] Encounter Details Date Type Department Care Team (Late Contact Info) Description 09/30/2017 Procedure Pass [facility] [address] [place] [address] Social History Tobacco Use Types Packs/Day Years [...] Description 09/17/2025 11:15 AM EST Office Visit [facility] [address] [facility] 3rd Floor, [address] [place] [address] Rome Saleem DO [address] [facility] [address] [place] [address] documented as of this encounter Visit Diagnoses Not on filedocumented in this encounter Care Teams Lead Architect Relationship Specialty Start Date End Date Maggie Franz MD [address] [place] [address] PCP - General 09/07/17 05/30/24 Hemal Ball PA [address] [address] [email or web address] PCP - General Physician Engineering Inspection Assistant 05/31/24 documented as of this encounter Additional Source Comments The information contained in this document represents components of the legal health record. It is not the complete legal health record.[facility]
--- OUTSIDE RECORDS SUMMARY | 2025-08-01 16:33 | XMS_ITS | Data Portability ---
Author Organization [facility] Address [address] [place] [address] Care Team Providers Care Tumbler Drier Operator Name Role Phone [facility] OTHER [phone] Assessment Encounter Date Assessment Date Assessment LastModified by Organization Details LastModified Time 05/08/2019 05/08/2019 Time On Scene with Patient: 00:32:50 78 year-old male with history of HTN, CAD, CABG, spinal stenosis, herniated discs, s/p discectomy, laminectomy (04/24) in [place] with Dr. Manriquez, bilateral knee replacements, whose calls to the home to evaluate patient for increased back pain. Pt was discharged from rehab yesterday after his surgery on 04/24. He had an uneventful day and felt he was walking well. He went to bed but didn't sleep well. When he woke up, he felt increased pain to his back and trouble with walking. He denies any fevers, chills, falls or weakness to his legs. He took his medications - dilaudid 2 mg. He took a nap just prior to arrival. He feels much better. now. He is able to get himself out of bed and ambulate with his walker as did before his discharge from rehab. HE denies any increased incisional pain, discharge, swelling. He has had a normal appetite. No trouble with bowel or bladder patterns. He has been able to have a bowel movement every day. No numbness to his legs. On physical exam, pt is alert and oriented. Lying supine on the bed, skin pink warm dry. resp easy, speech clear, moving all extremities well. He is able to get up into a sitting position without assist. Shifts from siitting to standing using his walker without assist. Gait steady to the living room - ambulates approximately 20 ft without difficulty. VSS and patient is afebrile. REsp easy, Incisions to midline back and right flank are intact with steri strips intact. No erythema and localized swelling just below the incision line without exudate or tenderness. Sensation is intact to upper and lower extremities: 5/5 strength to arms and legs. DDX: SEA, post-op infection, PT condition has improved after nap. His ability to ambulate and his pain has improved to the levels that he was at just prior to discharge from rehab. is reassured by this. There are no red flags to suggest acute infectious process, Pt and family given reasons to recall [facility] or to seek emergency treatment. At time of departure pt was in good spirits laughing with his and daughter. Not available 05/09/2019 18:17:32 Plan of Treatment Reminders Order Date Submit Date Provider Last Modified By Organization Details Last Modified Time Details Appointments None record ed. Lab None record ed. Referral None record ed. Procedures None record ed. Surgeries None record ed. Imaging None record ed. Medication Orders None record ed. Patient TargetsNo targets recorded. Patient Instructions Encounter Date Encounter Id Patient Instructions Last Modified By Organization Details Last Modified Time 05/08/2019 [id number] [facility] came to your home to evaluate you for pain to your back after surgery. You were worried something was wrong. You took a nap and the pain has improved. You are able to walk with your walker like you did before you got out of rehab. Please follow up with your surgeon as needed. If you have any further concerns, fevers, chillls or you have weakness, please call for re-evaluation or go to the ED if you have concerns. [facility]. We cannot always find the exact cause of your symptoms during your initial visit. Please follow up with your primary care provider or specialist to be rechecked or seek medical attention if your symptoms do not go away or get worse. If you develop any new or worsening symptoms and need after hours care, please go to nearest ER and/or call 911. If you have additional concerns or develop a change in your condition between 8am-10pm, please call [facility] at [phone] to help navigate your care. Not available 05/08/2019 16:45:22 Reason for Referral None Reported. Medical Equipment None Reported. Allergies Allergen ID Allergen Name Allergen Category Reaction Reaction Severity Criticality Documentation Date Start Date Code Code System Note Provider Name and Address Organization Details Recorded Time 77553 acetamino phen / oxycodone medicatio n Not available Not available Not available 05/08/2019 12402 3 RxNolinda JACKSONANGELA RAMOS [address] [place], [place], [address], [place] [facility] 16:40:50 21461 latex environme nt,medica tion Not available Not available Not available 05/08/2019 79618 91 RxNorm ANDREIA JACKSONANGELA RAMOS [address], [place], [address], [place] [facility] 9 16:41:02 Medications Name Sig Start Date Stop Date Status Note LastModified by Organization Details LastModified Time latanoprost 0.005 % eye drops active Not Available Not Available Not Available fluconazole 200 mg tablet active Not Available Not Available No t Available torsemide 10 mg tablet active Not Available Not Available Not Available clopidogrel 75 mg tablet active Not Available Not Available No t Available carvedilol 3.125 mg tablet active Not Available Not Availa ble Not Available hydromorphone 2 mg tablet active Not Available Not Available No t Available nystatin 100,000 unit/gram topical cream active Not Available Not Availabl e Not Available gabapentin 300 mg capsule active Not Available Not Available N ot Available rosuvastatin 40 mg tablet active Not Available Not Available No t Available Vitals Date Recorded Heart rate Body temperature Oxygen saturation Oxygen saturation in Arterial blood by Pulse oximetry Respiratory rate Systolic And Diastolic Provider Name and Address Organization Details Last Updated DateTime 9 102 /min 97.5 [degF] 98 % 98 % 18 /min 142/62 mm[Hg] Not Available [facility] 9 16:31:14 Social History None recorded. Functional Status None recorded. Mental Status None recorded. Family History Nothing Reported. Medical History No medical history recorded. Past Encounters Encounter ID Performer Location Encounter Start Date Encounter Closed Date Diagnosis/Indication Diagnosis SNOMED-CT Code Diagnosis ICD10 Code Diagnosis IMO Codes Diagnosis Note [id number] ANDREIA BACK NP [facility] [address] [place] [address] 05/08/2019 16:19:53 05/09/2019 11:10:42 Postoperative pain 917931895 G89.18 Health Concerns Section Related Observation LastModified by Organization Detai ls LastModified Time None Recorded Concern Status LastModified by Organization Details LastModified Time None Recorded Advance Directives Directive None Recorded Payers Insurance Date Sequence Insurance Name Policy Number Policy Mays Covered Member ID Mays Member ID Guarantor Name 05/10/2019 1 [place] [facility] Arnel Quintana [id number] Arnel Quintana 05/10/2019 1 [place] [facility] Arnel Quintana [id number] Arnel Quintana 05/10/2019 1 [place] [facility] Arenl Quintana [id number] Arnel Quintana 05/10/2019 2 [place] [facility] Arnel Quintana [id number] Arnel Quintana 05/10/2019 1 *SELF PAY* Arnel Quintana [id number] Arnel Quintana Notes Date Note Type Note Provider Name and Address Organization Details Recorded Time 05/08/2019 text/html 78 year-old male with history of HTN, CAD, CABG, spinal stenosis, herniated discs, s/p discectomy, laminectomy (04/24) in [place] with Dr. Manriquez, bilateral knee replacements, whose calls to the home to evaluate patient for increased back pain.Pt was discharged from rehab yesterday after his surgery on 04/24. He had an uneventful day and felt he was walking well. He went to bed but didn't sleep well. When he woke up, he felt increased pain to his back and trouble with walking. He denies any fevers, chills, falls or weakness to his legs. He took his medications - dilaudid 2 mg. He took a nap just prior to arrival. He feels much better. now. He is able to get himself out of bed and ambulate with his walker as did before his discharge from rehab. HE denies any increased incisional pain, discharge, swelling. He has had a normal appetite.No trouble with bowel or bladder patterns. He has been able to have a bowel movement every day. No numbness to his legs. ANDREIA BACK, ANGELA [address] [place], [address], [place] [facility] 05/09/2019 18:18:03
--- OUTSIDE RECORDS SUMMARY | 2025-08-01 16:33 | XMS_ITS | Encounter Summary ---
Author Organization [facility] Address [address] [place] [address] Phone Care Team Providers Care Director College Name Role Phone Maggie Franz MD Primary Care Provider [phone] Hemal Ball Primary Care Provider [phone] Encounter Details Date Type Department Care Team (Late Contact Info) Description 07/30/2020 Telephone [facility] [address] 3[address] Floor, [address] [place] [address] Nat Cantrell MD [address] [place] [address] [email or web address] Social History Tobacco Use Types Packs/Day [...] Description 09/17/2025 11:15 AM EST Office Visit [facility] [address] 3rd Floor, [address] [place] [address] Rome Saleem DO 22 [facility] [address] [place] [address] [email or web address] documented as of this encounter Visit Diagnoses Not on filedocumented in this encounter Care Teams Director College Relationship Specialty Start Date End Date Maggie Franz MD [address] [place] [address] PCP - General 09/07/17 05/30/24 Hemal Ball PA 300 [facility] [address] [place] [address] [email or web address] PCP - General Physician Commission Associate 05/31/24 documented as of this encounter Additional Source Comments The information contained in this document represents components of the legal health record. It is not the complete legal health record.[facility]
--- OUTSIDE RECORDS SUMMARY | 2025-08-01 16:33 | XMS_ITS | Encounter Summary ---
Author Organization [facility] Address [address] [facility] [address] [place] [address] Phone Care Team Providers Care Aqueduct And Reservoir Keeper Name Role Phone Maggie Franz MD Primary Care Provider [phone] Hemal Ball Primary Care Provider [phone] Encounter Details Date Type Department Care Team (Late Contact Info) Description 02/12/2021 Procedure Pass [facility] [address] [place] [address] Social History Tobacco Use Types Packs/Day Years [...] Description 09/17/2025 11:15 AM EST Office Visit [facility] 22 [facility] 3rd Floor, [address] [place] [address] Rome Saleem DO 22 [facility] [address] [place] [address] [email or web address] documented as of this encounter Visit Diagnoses Not on filedocumented in this encounter Care Teams Aqueduct And Reservoir Keeper Relationship Specialty Start Date End Date Maggie Franz MD [address] [place] [address] PCP - General 09/07/17 05/30/24 Hemal Ball PA [address] [address] [email or web address] PCP - General Physician Certified Pharmacist Assistant 05/31/24 documented as of this encounter Additional Source Comments The information contained in this document represents components of the legal health record. It is not the complete legal health record.[facility]
== END 2025-08-01 14:05 | disposition home or self-care (01) ==
LOC: HO.HID 13:03
PROVIDERS: Visit Provider Internal Medicine
DX: A49.8 Other bacterial infections of unspecified site (principal)
CPT/HCPCS: 99203

== ENCOUNTER → 2025-08-01 13:03 | Outpatient (BNVA) | payer MEDICARE, OTHER, SELFPAY | PROVIDERS: Visit Provider Internal Medicine | DX: J47.0 Bronchiectasis with acute lower respiratory infection (principal); B96.5 Pseudomonas (aeruginosa) (mallei) (pseudomallei) as the cause of diseases classified elsewhere; Z87.891 Personal history of nicotine dependence; Z79.2 Long term (current) use of antibiotics | CPT/HCPCS: 99202 ==

== ENCOUNTER 2025-08-14 15:34 | Outpatient (AMB) | payer MEDICARE, OTHER, SELFPAY ==
--- NOTE | 2025-08-14 15:36 | MHC.OFFVIS ---
Vital Signs 08/14/25 15:37 Height 5 ft 6 in Weight 153 lb 4 oz BMI 24.7 BP 114/50 L Blood Pressure Location Rt brachial Position Sitting Pulse 83 Pulse Source Pulse Oximeter Pulse Oximetry (%) 93 Oxygen Delivery Method Room Air Intake Visit Reasons: Cough Allergies oxycodone Adverse Reaction (Verified 08/14/25 15:45) Hallucinations latex Allergy (Uncoded 08/14/25 15:45) rash HPI HPI Cough: Details: Arnel is a pleasant 84-year-old male, former 15 pack year smoker, quit 1979 , with underlying Pseudomonas infection, HFrEF s/p ICD 2020, CKDIII, anemia, hyperlipidemia, hypertension, glaucoma, history of DE CABG x4 in 2018, 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 He is accompanied by daughter and . He was found to have pseudomonas + sputum culture and failed oral Levaquin. Due to insurance there was a delay in obtaining inhaled Tobramycin, patient completed 1 month with 50% improvement therefore was refilled after 1 month off, repeating Tobramycin with no change. He then was treated with Ertapenem IV, completing only 08/17 doses due to significant weakness and increasing somnolence, unable to tolerate despite decreasing infusion rate. Unfortunately patient did not receive any benefit from therapy. Today he presents with continuation of productive cough with yellowish green sputum, some days with significant mucus production and associated wheezing. Denies dyspnea, chest tightness/congestion, fever or chiils. Since the last visit he was evaluated by infectious disease at [facility] [place] who recommended discontuation of further treatment with consideration for prophylactic azithromycin 3x/week. [facility] Medical History (Updated 07/02/25 @ 16:01 by Georgie Markham NP) Other mechanical complication of internal fixation device of vertebrae, initial encounter Discitis of lumbosacral region Osteomyelitis Social History Patient Tobacco Use Status: Former Tobacco user Tobacco use type: Cigarette Cigarette Packs Per Day: 1 Years Smoked: 20 years/ Quit in 1977 Review of Systems Const Denies chills, Denies excessive sweating, Denies fever(s), Denies headache(s) and Denies night sweats Eyes Denies dry eyes, Denies irritation and Denies itchy eyes ENT Reports Normal hearing present, Denies headache(s), Denies nasal congestion, Denies nasal discharge, Denies post nasal drip and Denies sore throat Card Denies chest pain, Denies chest pain at rest, Denies chest pain with activity, Denies claudication, Denies leg edema, Denies dyspnea, Denies dyspnea on exertion, Denies orthopnea and Denies paroxysmal nocturnal dyspnea Resp Denies chest congestion, Denies pain on inspiration, Denies pain with cough, Denies dyspnea, Denies dyspnea on exertion and Denies stridor Musc Denies myalgias Neuro Reports Normal hearing present and Denies headache(s) Endo Denies excessive sweating Kris/Lymph Denies lymphadenopathy Aller/Immun Denies itchy eyes and Denies seasonal rhinorrhea Physical Exam Vital Signs: Last Vital Signs Pulse 83 08/14/25 15:37 BP 114/50 L 08/14/25 15:37 Pulse Ox 93 08/14/25 15:37 Oxygen Delivery Method Room Air 08/14/25 15:37 BMI result Body Mass Index 24.7 Const General: cooperative, comfortable, no acute distress and alert Orientation/consciousness: patient oriented x3 HEENT Head: Yes normal to inspection, Yes normocephalic and Yes atraumatic Ears: hearing grossly normal bilaterally and external ears normal Eyes General: appearance normal, both eyes and all related structures Eyelids: Yes eyelids normal Sclerae: sclerae normal EOM: EOMs intact bilaterally Neck Neck: Yes normal visual inspection and Yes no lymphadenopathy Lymphatic: no lymphadenopathy noted Chest Chest palpation & inspection: normal inspection of the chest Resp Effort & Inspection: normal respiratory effort, able to speak in complete sentences, no audible wheezes, Actively coughing Quality: productive, no stridor, not tachypneic, no tripod positioning and no use of accessory muscles Auscultation: rhonchi Cardio Jugular venous distension: no JVD Rate: regular rate Rhythm: regular rhythm Skin Other: warm, dry General skin exam: no rashes or lesions noted Neuro General: patient oriented x3 Cranial nerves: Yes Normal hearing present Cognition (Neuro): normal cognition Psych Appearance: grossly normal and well kempt Speech and movement: Normal speech and movement present and Clear speech present Affect: normal affect Attitude: cooperative Thought process: Normal thought process present Thought content: Normal thought content present Insight: Good insight present (Psych) Judgement: Good judgement present (Psych) Assessment & Plan Assessment & Plan (1) Pseudomonas aeruginosa infection: Code(s): A49.8 - Other bacterial infections of unspecified site Category: Medical (2) Cough: Code(s): R05.9 - Cough, unspecified Category: Medical (3) Personal history of tobacco use: Code(s): Z87.891 - Personal history of nicotine dependence Category: Social Hx (4) Bronchiectasis: Code(s): J47.9 - Bronchiectasis, uncomplicated Category: Medical Plan Arnel continues with persistent productive cough, wheezing with significant rhonchi on exam. He has failed oral Levaquin, trialed two courses of Tobramycin and 08/17 infusions of IV Ertapenem. At this time discussed chronicity of infectious process and possibly treating with azithromycin three times per week depending on EKG however will hold off at this time. Will discuss with Dr. Millan if patient would benefit from airway clearance with bronchoscopy in addition to deep cultures to ensure there is not a secondary infection to treat. Discussed continuing nebulized therapy with flutter valve to aid in mucus clearance. All questions were answered and patient is in agreement of plan. Coding Level of Care Code Est Pt Level 4 (40668) Complex EM visit Add On G2211 Diagnoses Pseudomonas aeruginosa infection A49.8 Cough R05.9 Personal history of tobacco use Z87.891 Bronchiectasis J47.9
[2025-08-14 15:37] VITALS: BP 114/50; PULSE 83; O2SAT 93; BMI 24.7
--- OUTSIDE RECORDS SUMMARY | 2025-08-14 17:10 | XMS_ITS | Encounter Summary ---
Author Organization [facility] Address [address] [place] [address] Phone Care Team Providers Care Bid Analyst Name Role Phone Hemal Ball Primary Care Provider [phone] Encounter Details Date Type Department Care Team (Late st Contact Info) Description 05/31/2024 Procedure Pass [facility] [address] [place] [address] Social History Tobacco Use Types Packs/Day Years [...] Description 09/17/2025 11:15 AM EST Office Visit [facility] [address], [address] [place] [address] Rome Saleem, [address] [facility] [address] [place] [address] [email or web address] documented as of this encounter Visit Diagnoses Not on filedocumented in this encounter Care Teams Bid Analyst Relationship Specialty Start Date End Date Hemal Ball PA [address] [place] [address] [email or web address] PCP - General Physician Collet Making Machine Operator 05/31/24 documented as of this encounter Additional Source Comments The information contained in this document represents components of the legal health record. It is not the complete legal health record.[facility]
--- OUTSIDE RECORDS SUMMARY | 2025-08-14 17:10 | XMS_ITS | Encounter Summary ---
Author Organization [facility] Address [address] [place] [address] Phone Care Team Providers Care Television Installer Helper Name Role Phone Maggie Franz MD Primary Care Provider Hemal Ball Primary Care Provider [phone] Encounter Details Date Type Department Care Team (Late st Contact Info) Description 10/06/2023 Procedure Pass [facility] [address] [place] [address] Social History Tobacco Use Types Packs/Day Years [...] 7:16 AM EST Marion Nichols RN * [place] Suicide Severity Rating Scale (Screener/Recent Self-Report) Question Answer Date of Assessment Author 2. Non-Specific Active Suici oseas Thoughts (Past 1 Month) No 10/06/2023 7:16 AM Lizy Martel RN documented as of this encounter Plan of Treatment Upcoming Encounters Date Type Department Care Team (Late st Contact Info) Description 09/17/2025 11:15 AM EST Office Visit [facility] [address] [facility] 3rd Floor, [address] [place] [address] Rome Saleem DO 22 [facility] [address] [place] [address] [email or web address] documented as of this encounter Visit Diagnoses Not on filedocumented in this encounter Care Teams Television Installer Helper Relationship Specialty Start Date End Date Maggie Franz MD [address] [place] [address] PCP - General 09/07/17 05/30/24 Hemal Ball PA [address] [facility] [address] [place] [address] PCP - General Physician Infection Prevention Specialist 05/31/24 documented as of this encounter Additional Source Comments The information contained in this document represents components of the legal health record. It is not the complete legal health record.[facility]
--- OUTSIDE RECORDS SUMMARY | 2025-08-14 17:11 | XMS_ITS | Encounter Summary ---
Author Organization [facility] Address [address] [facility] [address] [place] [address] Phone Care Team Providers Care Product Grader Name Role Phone Maggie Franz MD Primary Care Provider [phone] Hemal Ball Primary Care Provider [phone] Encounter Details Date Type Department Care Team (Late Contact Info) Description 09/07/2017 Procedure Pass [facility] [address] [place] [address] Social History Tobacco Use Types Packs/Day Years [...] Description 09/17/2025 11:15 AM EST Office Visit [facility] [address] [facility] 3rd Floor, [address] [place] [address] Rome Saleem DO 22 [facility] [address] [place] [address] documented as of this encounter Visit Diagnoses Not on filedocumented in this encounter Care Teams Product Grader Relationship Specialty Start Date End Date Maggie Franz MD [address] [place] [address] PCP - General 09/07/17 05/30/24 Hemal Ball PA [address] [address] [email or web address] PCP - General Physician Singing Teacher 05/31/24 documented as of this encounter Additional Source Comments The information contained in this document represents components of the legal health record. It is not the complete legal health record.[facility]
--- OUTSIDE RECORDS SUMMARY | 2025-08-14 17:11 | XMS_ITS | Encounter Summary ---
Author Organization [facility] Address [address] [facility] [address] [place] [address] Phone Care Team Providers Care Gasoline Dragline Operator Name Role Phone Maggie Franz MD Primary Care Provider [phone] Hemal Ball Primary Care Provider [phone] Encounter Details Date Type Department Care Team (Late Contact Info) Description 09/30/2017 Procedure Pass [facility] [address] [place] [address] Social History Tobacco Use Types Packs/Day Years [...] Description 09/17/2025 11:15 AM EST Office Visit [facility] [address] [facility] 3rd Floor, [address] [place] [address] Rome Saleem DO 22 [facility] [address] [place] [address] documented as of this encounter Visit Diagnoses Not on filedocumented in this encounter Care Teams Gasoline Dragline Operator Relationship Specialty Start Date End Date Maggie Franz MD [address] [place] [address] PCP - General 09/07/17 05/30/24 Hemal Ball PA [address] [address] [email or web address] PCP - General Physician Telecommunications Network Planner 05/31/24 documented as of this encounter Additional Source Comments The information contained in this document represents components of the legal health record. It is not the complete legal health record.[facility]
--- OUTSIDE RECORDS SUMMARY | 2025-08-14 17:11 | XMS_ITS | Encounter Summary ---
Author Organization [facility] Address [address] [facility] [address] [place] [address] Phone Care Team Providers Care Train Caller Name Role Phone Maggie Franz MD Primary Care Provider [phone] Hemal Ball Primary Care Provider [phone] Encounter Details Date Type Department Care Team (Late Contact Info) Description 02/12/2021 Procedure Pass [facility] [address] [place] [address] Social History Tobacco Use Types Packs/Day Years [...] Description 09/17/2025 11:15 AM EST Office Visit [facility] [address] [facility] 3rd Floor, [address] [place] [address] Rome Saleem DO 22 [facility] [address] [place] [address] [email or web address] documented as of this encounter Visit Diagnoses Not on filedocumented in this encounter Care Teams Train Caller Relationship Specialty Start Date End Date Maggie Franz MD [address] [place] [address] PCP - General 09/07/17 05/30/24 Hemal Ball PA [address] [address] [email or web address] PCP - General Physician Reversing Mill Roller 05/31/24 documented as of this encounter Additional Source Comments The information contained in this document represents components of the legal health record. It is not the complete legal health record.[facility]
--- OUTSIDE RECORDS SUMMARY | 2025-08-14 17:11 | XMS_ITS | Encounter Summary ---
Author Organization [facility] Address [address] [place] [address] Phone Care Team Providers Care Wireless Operator Name Role Phone Maggie Franz MD Primary Care Provider Hemal Ball Primary Care Provider [phone] Encounter Details Date Type Department Care Team (Late Contact Info) Description 07/30/2020 Telephone [facility] [address] Floor, [address] [place] [address] Nat Cantrell MD 3 [place] [address] [email or web address] Social History Tobacco Use Types Packs/Day [...] Description 09/17/2025 11:15 AM EST Office Visit [facility] [address], [address] [place] [address] Rome Saleem DO 22 [facility] [address] [place] [address] [email or web address] documented as of this encounter Visit Diagnoses Not on filedocumented in this encounter Care Teams Wireless Operator Relationship Specialty Start Date End Date Maggie Franz MD [address] [place] [address] PCP - General 09/07/17 05/30/24 Hemal Ball PA 300 [facility] [address] [place] [address] [email or web address] PCP - General Physician Development Disability Specialist 05/31/24 documented as of this encounter Additional Source Comments The information contained in this document represents components of the legal health record. It is not the complete legal health record.[facility]
--- OUTSIDE RECORDS SUMMARY | 2025-08-14 17:11 | XMS_ITS | Clinical Summary ---
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 From what he tells me this was done for primary prevention with his LVEF less than 35% at that time. He is not aware of having ever had shocks delivered. His device is being monitored remotely through the [place] office. We were able to download the recent report dated 05/18/2024. There is no atrial fibrillation noted on this report. ECG today showing an irregular wide-complex rhythm possibly with PVCs. Perhaps some beats just MEATCUTTER pacing versus not. Irregularity potentially concerning for [...] Recently had iliac artery stent done through [facility] I am told. He follows with [facility] vascular for his PVD. 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 Continue aspirin/Plavix/statin I have reviewed most recent lipid profile through [facility]. Lipids well-controlled. Should maintain his LDL [...] a defibrillator in place he is a [employer] class III patient with a recurrent hospitalization for heart failure I explained risk benefits and alternatives to him regarding a CardioMEMS implant which we will do at [facility]. 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 in 3 months to review [...] time with no recent hospitalizations for CHF Social History Tobacco Use Types Packs/Day Years [...] Description 09/17/2025 11:15 AM EST Office Visit [facility] [address] [facility] 3rd Floor, [address] [place] [address] Rome Saleem DO [address] [facility] [address] [place] [address] [email or web address] Maintenance Due Date Last Done Comments [...] this topic Medical Devices Implanted Type Area Post Office Clerk Device Identifier Shelf Expiration Date Model / Serial / Lot Sensor Pulmonary Artery Delivery System Cardiomems - [id number] Implanted:Qty : 1 on 10/06/2023 by Rome Saleem DO at [facility] Implantable Monitor Left: Lung LaserLeap [id number] 11/22/2024 CM PATIENT SYSTEM / [id number] / Pacemaker Pacemaker Chest Wall Prosthetic Joint Bilateral Knees Prosthetic Joint Description:bilat. knees [place] Right Femur [place] Right: Femur Screw In Back Screw Back Stent In Left Leg Stent Leg Stent Absolute Pro 7mm 40mm 135cm .035in Otw Vascular Nickel Titanium Self-Expandin g External Iliac Artery Tri Axial Radiopaque Marker Sterile Disp - [id number] Implanted:Qty : 1 on 02/12/2021 by Rome Saleem DO at [facility] Stent [employer]ARTE VASCULAR [id number] 08/03/2022 [id number] Description:DISTAL SFA Insurance [place] [id number] [facility] PART[facility] Member Subscriber Plan / Payer (Ef fective 2020-Present) Name:Arnel Quintana Relation to Subscriber:Self Name:Arnel Quintana Payer ID:Not on file Group ID:Not on file Type:Medicaid Address: [facility] [address] MEDICARE SUPPLEMENT MEDICARE PART A & B [facility] PART[facility] Member Subscriber Plan / Payer (Ef fective 2020-Present) Name:LilianShylaArnel Relation to Subscriber:Self Name:SarahShyla huffvin Payer ID:Not on file Group ID:Not on file Type:Medicaid Address: [address] MEDICARE SUPPLEMENT MEDICARE PART A & B HEALTH SAFETY NET PARTIAL MEDICARE [facility] MEDICARE PART A & B HEALTH SAFETY NET PARTIAL [facility] MEDICARE SUPPLEMENT MED[place] A [place] [id number] [facility] PARTIAL [facility] MEDICARE SUPPLEMENT MEDICARE PART A & B [facility] PARTIAL MEDICARE SUPPLEMENT MEDICARE PART A & B HEALTH SAFETY NET PARTIAL [place] MEDICARE SUPPLEMENT MEDICARE PART A & B HEALTH SAFETY NET PARTIAL [place] MEDICARE SUPPLEMENT MEDICARE PART A & B Member Subscriber Plan / Payer (Ef fective 2006-Present) Name:Arnel Quintana Member ID:[id number] Relation to Subscriber:Self Name:Arnel Quintana Subscriber ID:[id number] Payer ID:[id number] Group ID:Not on file Type:Medicare Address: [facility] [employer] [facility] [employer] [facility] 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 It is not the complete legal health record.[facility]
== END 2025-08-14 16:41 | disposition home or self-care (01) ==
LOC: HO.HPSW 15:35
PROVIDERS: PCP Internal Medicine; Visit Provider Nurse Practitioner Family
DX: A49.8 Other bacterial infections of unspecified site (principal); R05.9 Cough, unspecified; Z87.891 Personal history of nicotine dependence; J47.9 Bronchiectasis, uncomplicated
CPT/HCPCS: 99214; G2211

== ENCOUNTER → 2025-08-14 15:34 | Outpatient (BNVA) | payer MEDICARE, OTHER, SELFPAY | PROVIDERS: PCP Internal Medicine; Visit Provider Nurse Practitioner Family | DX: R06.2 Wheezing (principal); J47.9 Bronchiectasis, uncomplicated; A49.8 Other bacterial infections of unspecified site; R05.9 Cough, unspecified; Z87.891 Personal history of nicotine dependence | CPT/HCPCS: 99212 ==